=== PATIENT | female | born 1970 | race Caucasian/White ===

== ENCOUNTER 2023-02-23 11:22 | Inpatient (IN) ==
[2023-02-23] MEDS ORDERED: IOPAMIDOL 100 ML BOTTLE IV ONE (11:23)
[2023-02-23] MEDS ORDERED: 0.9 % SODIUM CHLORIDE 1,000 ML IV ONE (11:31)
[2023-02-23] MEDS ORDERED: ASPIRIN 81 MG TAB.CHEW CHEWED ONE (11:44)
[2023-02-23 11:54] LABS: POC Calcium, Ionized 1.06 (1.16-1.32); POC Creatinine 0.8 (0.6-1.2); POC Potassium 4.4 (3.3-5.1)
[2023-02-23] MEDS ORDERED: NOREPINEPHRINE BITARTRATE 8 MG in 0.9 % SODIUM CHLORIDE 242 ML IV SCH (12:30)
[2023-02-23] MEDS ORDERED: 0.9 % SODIUM CHLORIDE 250 ML IV SCH (12:30)
[2023-02-23 12:36] LABS: Basophils # (Auto) 0.07 K/mcL (0.00-0.30); Basophils % (Auto) 0.4 % (0.0-2.0); Eosinophils # (Auto) 0.09 K/mcL (0.00-0.70); Eosinophils % (Auto) 0.5 % (0.0-7.0); Hematocrit 32.3 % (34.1-44.9); Hemoglobin 10.3 g/dL (11.2-15.7); Lymphocytes # (Auto) 2.39 K/mcL (1.50-4.80); Lymphocytes % (Auto) 13.6 % (15.5-49.0); Mean Cell Volume 93.6 fL (80.0-100.0); Mean Corpuscular HGB Conc 31.9 g/dL (31.0-36.0); Monocytes # (Auto) 0.39 K/mcL (0.10-0.90); Monocytes % (Auto) 2.2 % (1.0-12.0); Neutrophils % (Auto) 82.4 % (38.0-78.0); Platelet Count 330 K/mcL (140-440); RBC 3.45 M/mcL (3.59-5.38); Red Cell Distribution Width 16.2 % (11.5-14.5); WBC 17.5 K/mcL (4.5-11.0)
--- NOTE | 2023-02-23 12:43 | XRay Report ---
CLINICAL INFORMATION: sob COMPARISON: 02/21/2023 FINDINGS: Heart size, mediastinum and pulmonary vessels are normal. Large, yet vague, reticular interstitial infiltrated throughout the right lung with moderate, yet similar, infiltrate in the left mid and lower lung have developed since the x-ray just two days prior. Underlying COPD changes acknowledged IMPRESSION: Large interstitial infiltrate throughout the right lung with moderate interstitial infiltrate left mid lower lung developing since exam two days prior. Consider viral or mycoplasma pneumonia. ARDS is possible Interpreted and Authenticated by: Bhavik Rosales 02/23/23
[2023-02-23] MEDS ORDERED: cefTRIAXone 2 GM in DEXTROSE 5% IN WATER 50 ML IV ONE (12:45)
[2023-02-23] MEDS ORDERED: AZITHROMYCIN 500 MG in DEXTROSE 5% IN WATER 250 ML IV ONE (12:45)
--- NOTE | 2023-02-23 13:00 | Emergency Department Note ---
HPI General Chief complaint: Shortness of Breath/Dyspnea Stated complaint: Shortness of Breath Time Seen by Provider: 02/23/23 11:23 Source: patient and family Mode of arrival: wheelchair Limitations: no limitations History of Present Illness HPI Narrative: Narrative: This patient with a history of asthma who smokes half pack cigarettes daily presents with complaint of shortness of breath. Patient also been experiencing some pain in the right chest. She describes shortness of breath that has been slowly progressing over the last several weeks. The pain initially began over a week ago and seem to be somewhat sporadic. Over the last few days its been persistent. Patient did have an evaluation a couple of days ago due to the discomfort. She was evaluated with chest x-ray, D-dimer and basic labs. No si gnificant abnormality was noted other than hyponatremia which the patient suffers from chronically, and the patient was reassured. Patient does have history remote history of spontaneous pneumothorax, on the left. These happened in her 30s. She has also had pneumonia severe enough to require admission previously. She has no significant cardiac history. Related Data Home Medications Medication Instructions Recorded Confirmed amitriptyline 25 mg tablet 85 mg PO QHS 06/09/15 02/23/23 estradiol 0.5 mg tablet 1 mg PO QHS 06/09/15 02/23/23 ketorolac 60 mg/2 mL intramuscular 60 mg IM WEEKLY PRN Pain 06/09/15 02/23/23 solution omeprazole 40 mg capsule,delayed 40 mg PO BID 06/09/15 02/23/23 release (Prilosec) ondansetron HCl 4 mg tablet 4 mg PO TID 06/09/15 02/23/23 (Zofran) temazepam 30 mg capsule (Restoril) 45 mg PO HS 08/23/16 02/23/23 losartan 100 mg tablet 100 mg DAILY 02/07/19 02/23/23 meclizine 12.5 mg tablet 12.5 mg PO BID PRN Vertigo 01/22/20 02/23/23 potassium chloride 20 mEq 40 meq PO QAMCC 01/22/20 02/23/23 tablet,extended release(part/cryst) spironolactone 25 mg tablet 25 mg PO DAILY 01/22/20 02/23/23 albuterol sulfate 90 mcg/actuation 2 puff inhalation Q6H PRN 01/17/21 02/23/23 aerosol inhaler Shortness Of Breath budesonide-formoterol HFA 160 2 puff inhalation TID PRN 01/17/21 02/23/23 mcg-4.5 mcg/actuation aerosol Shortness Of Breath inhaler ibuprofen 200 mg tablet 800 mg PO TID 01/17/21 02/23/23 acetaminophen 325 mg tablet 650 mg PO TID 02/23/23 02/23/23 budesonide-formoterol HFA 160 2 puff inhalation BID 02/23/23 02/23/23 mcg-4.5 mcg/actuation aerosol inhaler (Symbicort) cyclobenzaprine 10 mg tablet 10 mg PO HS 02/23/23 02/23/23 dextroamphetamine-amphetamine ER 1 cap PO QAM 02/23/23 02/23/23 20 mg 24hr capsule,extend release rimegepant 75 mg disintegrating 75 mg PO DAILY PRN Migraines 02/23/23 02/23/23 tablet (Nurtec ODT) sennosides 8.6 mg tablet (senna) 8.6 mg PO DAILY PRN Constipation 02/23/23 02/23/23 Previous Rx's Medication Instructions Recorded promethazine 25 mg tablet 25 mg PO TID PRN nausea and 02/21/23 vomiting #30 tabs Allergies Allergy/AdvReac Type Severity Reaction Status Date / Time metronidazole [From Flagyl] Allergy Severe Anaphylaxis Verified 02/23/23 16:56 naproxen Allergy Mild Hives Verified 02/23/23 18:46 Sulfa (Sulfonamide Allergy Mild Hives Verified 02/23/23 18:46 Antibiotics) modafinil [From Provigil] Allergy Unknown Unknown Verified 02/23/23 18:46 bupropion [From Wellbutrin] AdvReac Intermediate Seizure Verified 02/23/23 18:46 divalproex sodium AdvReac Mild Agitated Verified 02/23/23 18:46 [From Depakote] latex AdvReac Mild Itching Verified 02/23/23 18:46 pregabalin [From Lyrica] AdvReac Mild Hives Verified 02/23/23 18:46 Varenicline [From Chantix] AdvReac Mild Insomnia Verified 02/23/23 18:46 Review of Systems ROS ROS Narrative: Narrative: Pertinent positives and negatives as noted in HPI. All other systems reviewed and negative. [facility] Narrative Patient History Narrative: Narrative: Medical/Surgical/Family History All Active Problems (Updated 02/23/23 @ 22:25 by Portia Morales PA-C) Bronchitis, acute (Acute) COPD exacerbation (Acute) URI (upper respiratory infection) (Acute) Dehydration (Acute) Acute hyponatremia (Acute) COPD exacerbation (Acute) Acute chest wall pain (Acute) Chronic hyponatremia (Acute) Hypoxia (Acute) Leukocytosis (Acute) Pneumonitis (Acute) Chest pain, pleuritic (Acute) Elevated troponin (Acute) Hyponatremia (Acute) Mnire's disease (Chronic) Chronic insomnia (Chronic) ADHD (attention deficit hyperactivity disorder) (Chronic) Borderline personality disorder (Chronic) Fibromyalgia (Chronic) PTSD (post-traumatic stress disorder) (Chronic) Gastroparesis (Chronic) GERD (gastroesophageal reflux disease) (Chronic) Asthma (Chronic) History of TIA (transient ischemic attack) (Chronic) History of pneumothorax (Chronic) Hypertension, essential (Chronic) Hormone replacement therapy (postmenopausal) (Chronic) History of migraine headaches (Chronic) Medical History (Updated 02/23/23 @ 22:25 by Portia Morales PA-C) ADHD (attention deficit hyperactivity disorder) Asthma Bladder infection, acute Borderline personality disorder Chronic insomnia Fibromyalgia Gastroparesis GERD (gastroesophageal reflux disease) Headache History of migraine headaches History of pneumothorax History of TIA (transient ischemic attack) Hormone replacement therapy (postmenopausal) Hypertension, essential Hyponatremia Mnire's disease Pneumonia PTSD (post-traumatic stress disorder) UTI (urinary tract infection) Surgical History History of appendectomy History of bilateral salpingo-oophorectomy (BSO) History of endometriosis History of cholecystectomy History of colonoscopy History of esophagogastroduodenoscopy (EGD) History of hysterectomy Due to endometriosis History of orthopedic surgery multiple - neck, back, elbow, wrist, knee, foot, etc. Social History Smoking Status: Current every day smoker Exam Narrative Narrative: Narrative: Vital signs noted General: mild distress. Skin: Warm. Dry. No rash. Normal color. Eyes: PERRL. EOMI. Mouth: Membranes moist. Normal inspection. Neck: Good ROM. No meningeal signs. Supple. Cardiovascular: Tachycardia, regular. No murmur. Cap refill 4 seconds. Carotid pulses 2+, radial pulses 1+. Respiratory: Lung sounds clear bilaterally. Patient severely tachypneic. Gastrointestinal: Abdomen soft. No tenderness. No distention. Normal bowel sounds. No rebound tenderness or guarding. Back: Normal inspection. No CVA tenderness. No midline tenderness. Extremities: No tenderness. No swelling. No erythema. No edema. Good peripheral pulses x 4 Neurological: No focal neurological deficits observed. CN 2-12 intact. Alert. Oriented x 3 General Limitations: no limitations Course Course Course Narrative: The following orders are placed and reviewed by myself: Patient placed promptly on supplemental oxygen to improve her room air saturations from 48%. After several minutes the patient is in the 90s with pe rsistent tachypnea Differential diagnosis includes but is not limited to pulmonary embolism, fluid overload with pulmonary edema, OK, pneumonia, pneumothorax. CBC and CHEM panel reviewed. Sodium is slightly lower at 120, chloride is also low at 91. This is also chronic. POC troponin is elevated at 0.19. Lab troponin T is 0.04. EKG obtained and reviewed by myself to show sinus tachycardia at a rate of 101. QRS complexes are wide and at regular intervals. Does appear there is some mild ST elevation, half millimeter or so in lead III with flattening of T wave in aVF. With T wave inversion in V2. These are new compared to prior EKG from September 2022. proBNP is elevated at 3400. Prior in September 2022 is 176 Lactic acid elevated at 4.2 with venous pH of 7.23 Patient initially given 1 L of normal saline for hypotension with systolic pressures in the 70s and 80s. After obtaining her sodium level no fluid resuscitation is initiated due to concern for further electrolyte derangement. After the initial bolus of saline pressures do improve into the low 100s systolically and MAP stays above 65. Levophed is ordered to have on standby but is not initiated. Chest x-ray findings are concerning for fluid overload versus pneumonia. Given the patient's vital sign derangement and lab abnormalities she will be initiated on antibiotics for pneumonia sepsis. CTA chest is obtained report by radiology to be significant for findings consistent for nonspecific inflammatory pneumonitis. Radiology did not feel the findings on CT were consistent with bacterial pneumonia. Case is discussed with operating room rn at [facility] given the elevated troponin and EKG findings. Cardiology did not feel compelled that this patient fit criteria for cardiac catheterization at this time. Symptoms have been ongoing and the elevated troponin as well as slight EKG changes are thought to be secondary to alternative process such as CHF, pneumonia etc. Cardiology did advise that should the patient become clearly concerning for cardiac he is available to discuss the case further. Given the patent stents chest x-ray is well as hypotension and hypoxia sepsis is considered however given her hyponatremia further fluid resuscitation is withheld due to concern for worsening the patient's electrolyte derangement. Patient discussed with hospital service who recommends viral testing to include respiratory panels 1 and 2 as well as some [id number] testing for influenza and COVID. [id number] testing is negative. Patient excepted by hospitalist service for admission regarding hypoxia, pneumonitis versus pneumonia, hyponatremia. 45 minutes time spent interviewing patient, examining patient, ordering labs and imaging, reviewing labs and imaging, reviewing prior medical records, ordering medications and developing care plan, reevaluating patient and consulting specialist. This excludes procedures. Vital Signs Vital signs: Vital Signs Temperature 98.0 F 02/23/23 11:31 Pulse Rate 109 H 02/23/23 11:31 Respiratory Rate 28 H 02/23/23 11:31 Blood Pressure 97/61 02/23/23 11:31 Pulse Oximetry (%) 47 L 02/23/23 11:31 Oxygen Delivery Method Room Air 02/23/23 11:31 Temperature 98.1 F 02/23/23 18:01 Pulse Rate 84 02/23/23 21:28 Respiratory Rate 23 H 02/23/23 21:28 Blood Pressure 134/92 02/23/23 18:01 Pulse Oximetry (%) 96 02/23/23 21:28 Oxygen Delivery Method Heated High Flow Nasal Cannula 02/23/23 21:28 Oxygen Flow Rate (L/min) 30 02/23/23 21:28 MDM MDM Narrative Medical decision making narrative: Narrative: Lab Data 02/23/23 11:40 02/23/23 16:56 Labs: Lab Results 02/23/23 02/23/23 02/23/23 Range/Units 11:40 11:40 11:40 WBC 17.5 H (4.5-11.0) K/mcL RBC 3.45 L (3.59-5.38) M/mcL Hgb 10.3 L (11.2-15.7) g/dL Hct 32.3 L (34.1-44.9) % POC Hct (36-48) MCV 93.6 (80.0-100.0) fL MCH 29.9 (26.0-34.0) pg MCHC 31.9 (31.0-36.0) g/dL RDW 16.2 H (11.5-14.5) % Plt Count 330 (140-440) K/mcL MPV 9.0 (8.8-12.5) fL Immature Gran % (Auto) 0.9 H (0.0-0.5) % Neut % (Auto) 82.4 H (38.0-78.0) % Lymph % (Auto) 13.6 L (15.5-49.0) % [place] % (Auto) 2.2 (1.0-12.0) % Eos % (Auto) 0.5 (0.0-7.0) % Baso % (Auto) 0.4 (0.0-2.0) % Lymph # (Auto) 2.39 (1.50-4.80) K/mcL [place] # (Auto) 0.39 (0.10-0.90) K/mcL Eos # (Auto) 0.09 (0.00-0.70) K/mcL Baso # (Auto) 0.07 (0.00-0.30) K/mcL Immature Gran # 0.15 H (0.00-0.05) K/mcl Absolute Neutrophils 14.43 H (1.80-8.00) K/mcL ESR (0-30) mm/hr POC VBG pH (7.32-7.42) POC VBG pCO2 at Temp (41-51) POC VBG pO2 (25-40) POC VBG HCO3 (24-28) POC VBG Total CO2 (25-29) POC Venous O2 Sat (40-70) POC VBG Base Excess (-2-2) VBG Lactic Acid (0.5-2) POC Sodium (133-145) Sodium 118 L* (133-145) mmol/L POC Potassium (3.3-5.1) Potassium 4.6 (3.3-5.1) mmol/L POC Chloride (96-108) Chloride 87 L (96-108) mmol/L Carbon Dioxide 14 L (22-30) mmol/L POC Total CO2 (22-30) Anion Gap 17.0 H (8.0-16.0) POC BUN (6-20) BUN 13 (6-20) mg/dL Creatinine 0.9 (0.6-1.1) mg/dL POC Creatinine (0.6-1.2) GFR Calculation 73 Glucose 219 H (70-105) mg/dL POC Glucose (70-105) Calcium 8.1 L (8.6-10.4) mg/dL POC WB Ioniz Calcium (1.16-1.32) Total Bilirubin 0.2 (0.1-1.0) mg/dL AST 33 H (<32) U/L ALT 12 (<40) U/L Alkaline Phosphatase 66 (39-117) U/L Troponin T 0.04 H* (<0.03) ng/mL C-React Prot High Sens (1.0-3.0) mg/L NT-Pro-B Natriuret Pep 3458.0 H (<125.0) pg/mL Total Protein 6.4 (5.9-8.4) gm/dL Albumin 3.5 (3.2-5.2) gm/dL Globulin 2.9 (2.2-3.7) gm/dL Albumin/Globulin Ratio 1.2 (1.0-2.3) Procalcitonin (<0.10) ng/mL POC Troponin I (0.00-0.08) 02/23/23 02/23/23 02/23/23 Range/Units 11:40 11:40 11:40 WBC (4.5-11.0) K/mcL RBC (3.59-5.38) M/mcL Hgb (11.2-15.7) g/dL Hct (34.1-44.9) % POC Hct (36-48) MCV (80.0-100.0) fL MCH (26.0-34.0) pg MCHC (31.0-36.0) g/dL RDW (11.5-14.5) % Plt Count (140-440) K/mcL MPV (8.8-12.5) fL Immature Gran % (Auto) (0.0-0.5) % Neut % (Auto) (38.0-78.0) % Lymph % (Auto) (15.5-49.0) % [place] % (Auto) (1.0-12.0) % Eos % (Auto) (0.0-7.0) % Baso % (Auto) (0.0-2.0) % Lymph # (Auto) (1.50-4.80) K/mcL [place] # (Auto) (0.10-0.90) K/mcL Eos # (Auto) (0.00-0.70) K/mcL Baso # (Auto) (0.00-0.30) K/mcL Immature Gran # (0.00-0.05) K/mcl Absolute Neutrophils (1.80-8.00) K/mcL ESR 50 H (0-30) mm/hr POC VBG pH (7.32-7.42) POC VBG pCO2 at Temp (41-51) POC VBG pO2 (25-40) POC VBG HCO3 (24-28) POC VBG Total CO2 (25-29) POC Venous O2 Sat (40-70) POC VBG Base Excess (-2-2) VBG Lactic Acid (0.5-2) POC Sodium (133-145) Sodium (133-145) mmol/L POC Potassium (3.3-5.1) Potassium (3.3-5.1) mmol/L POC Chloride (96-108) Chloride (96-108) mmol/L Carbon Dioxide (22-30) mmol/L POC Total CO2 (22-30) Anion Gap (8.0-16.0) POC BUN (6-20) BUN (6-20) mg/dL Creatinine (0.6-1.1) mg/dL POC Creatinine (0.6-1.2) GFR Calculation Glucose (70-105) mg/dL POC Glucose (70-105) Calcium (8.6-10.4) mg/dL POC WB Ioniz Calcium (1.16-1.32) Total Bilirubin (0.1-1.0) mg/dL AST (<32) U/L ALT (<40) U/L Alkaline Phosphatase (39-117) U/L Troponin T (<0.03) ng/mL C-React Prot High Sens 220.6 H (1.0-3.0) mg/L NT-Pro-B Natriuret Pep (<125.0) pg/mL Total Protein (5.9-8.4) gm/dL Albumin (3.2-5.2) gm/dL Globulin (2.2-3.7) gm/dL Albumin/Globulin Ratio (1.0-2.3) Procalcitonin 6.60 H (<0.10) ng/mL POC Troponin I (0.00-0.08) 02/23/23 02/23/23 02/23/23 Range/Units 11:46 11:49 11:51 WBC (4.5-11.0) K/mcL RBC (3.59-5.38) M/mcL Hgb (11.2-15.7) g/dL Hct (34.1-44.9) % POC Hct 34.0 L (36-48) MCV (80.0-100.0) fL MCH (26.0-34.0) pg MCHC (31.0-36.0) g/dL RDW (11.5-14.5) % Plt Count (140-440) K/mcL MPV (8.8-12.5) fL Immature Gran % (Auto) (0.0-0.5) % Neut % (Auto) (38.0-78.0) % Lymph % (Auto) (15.5-49.0) % [place] % (Auto) (1.0-12.0) % Eos % (Auto) (0.0-7.0) % Baso % (Auto) (0.0-2.0) % Lymph # (Auto) (1.50-4.80) K/mcL [place] # (Auto) (0.10-0.90) K/mcL Eos # (Auto) (0.00-0.70) K/mcL Baso # (Auto) (0.00-0.30) K/mcL Immature Gran # (0.00-0.05) K/mcl Absolute Neutrophils (1.80-8.00) K/mcL ESR (0-30) mm/hr POC VBG pH 7.23 L (7.32-7.42) POC VBG pCO2 at Temp 39.8 L (41-51) POC VBG pO2 24 L (25-40) POC VBG HCO3 16.8 L (24-28) POC VBG Total CO2 18.0 L (25-29) POC Venous O2 Sat 33.0 L (40-70) POC VBG Base Excess -11.0 L (-2-2) VBG Lactic Acid 4.2 H* (0.5-2) POC Sodium 120 L (133-145) Sodium (133-145) mmol/L POC Potassium 4.4 (3.3-5.1) Potassium (3.3-5.1) mmol/L POC Chloride 91 L (96-108) Chloride (96-108) mmol/L Carbon Dioxide (22-30) mmol/L POC Total CO2 17.0 L (22-30) Anion Gap (8.0-16.0) POC BUN 13 (6-20) BUN (6-20) mg/dL Creatinine (0.6-1.1) mg/dL POC Creatinine 0.8 (0.6-1.2) GFR Calculation Glucose (70-105) mg/dL POC Glucose 221 H (70-105) Calcium (8.6-10.4) mg/dL POC WB Ioniz Calcium 1.06 L (1.16-1.32) Total Bilirubin (0.1-1.0) mg/dL AST (<32) U/L ALT (<40) U/L Alkaline Phosphatase (39-117) U/L Troponin T (<0.03) ng/mL C-React Prot High Sens (1.0-3.0) mg/L NT-Pro-B Natriuret Pep (<125.0) pg/mL Total Protein (5.9-8.4) gm/dL Albumin (3.2-5.2) gm/dL Globulin (2.2-3.7) gm/dL Albumin/Globulin Ratio (1.0-2.3) Procalcitonin (<0.10) ng/mL POC Troponin I 0.19 H (0.00-0.08) 02/23/23 02/23/23 Range/Units 15:12 15:12 WBC (4.5-11.0) K/mcL RBC (3.59-5.38) M/mcL Hgb (11.2-15.7) g/dL Hct (34.1-44.9) % POC Hct (36-48) MCV (80.0-100.0) fL MCH (26.0-34.0) pg MCHC (31.0-36.0) g/dL RDW (11.5-14.5) % Plt Count (140-440) K/mcL MPV (8.8-12.5) fL Immature Gran % (Auto) (0.0-0.5) % Neut % (Auto) (38.0-78.0) % Lymph % (Auto) (15.5-49.0) % [place] % (Auto) (1.0-12.0) % Eos % (Auto) (0.0-7.0) % Baso % (Auto) (0.0-2.0) % Lymph # (Auto) (1.50-4.80) K/mcL [place] # (Auto) (0.10-0.90) K/mcL Eos # (Auto) (0.00-0.70) K/mcL Baso # (Auto) (0.00-0.30) K/mcL Immature Gran # (0.00-0.05) K/mcl Absolute Neutrophils (1.80-8.00) K/mcL ESR (0-30) mm/hr POC VBG pH (7.32-7.42) POC VBG pCO2 at Temp (41-51) POC VBG pO2 (25-40) POC VBG HCO3 (24-28) POC VBG Total CO2 (25-29) POC Venous O2 Sat (40-70) POC VBG Base Excess (-2-2) VBG Lactic Acid 1.8 (0.5-2) POC Sodium (133-145) Sodium (133-145) mmol/L POC Potassium (3.3-5.1) Potassium (3.3-5.1) mmol/L POC Chloride (96-108) Chloride (96-108) mmol/L Carbon Dioxide (22-30) mmol/L POC Total CO2 (22-30) Anion Gap (8.0-16.0) POC BUN (6-20) BUN (6-20) mg/dL Creatinine (0.6-1.1) mg/dL POC Creatinine (0.6-1.2) GFR Calculation Glucose (70-105) mg/dL POC Glucose (70-105) Calcium (8.6-10.4) mg/dL POC WB Ioniz Calcium (1.16-1.32) Total Bilirubin (0.1-1.0) mg/dL AST (<32) U/L ALT (<40) U/L Alkaline Phosphatase (39-117) U/L Troponin T 0.06 H* (<0.03) ng/mL C-React Prot High Sens (1.0-3.0) mg/L NT-Pro-B Natriuret Pep (<125.0) pg/mL Total Protein (5.9-8.4) gm/dL Albumin (3.2-5.2) gm/dL Globulin (2.2-3.7) gm/dL Albumin/Globulin Ratio (1.0-2.3) Procalcitonin (<0.10) ng/mL POC Troponin I (0.00-0.08) Discharge Plan Patient/Caregiver Discharge Instructions Pt seen by PENSIONHOLDER INFORMATION CLERK/PA only: Yes Clinical Impression: Hypoxia, Leukocytosis, Pneumonitis, Chest pain, pleuritic, Elevated troponin, Hyponatremia Patient Disposition: Xfer As Inpt ([facility]) Discharge Date/Time: 02/23/23 16:34
[2023-02-23] MEDS ORDERED: KETOROLAC 30 MG/ML VIAL IV ONE (13:11)
[2023-02-23 13:25] LABS: ALT/SGPT 12 U/L (<40); AST/SGOT 33 U/L (<32); Albumin 3.5 gm/dL (3.2-5.2); Albumin/Globulin Ratio 1.2 (1.0-2.3); Alkaline Phosphatase 66 U/L (39-117); Bilirubin,Total 0.2 mg/dL (0.1-1.0); Blood Urea Nitrogen 13 mg/dL (6-20); Calcium 8.1 mg/dL (8.6-10.4); Carbon Dioxide 14 mmol/L (22-30); Chloride 87 mmol/L (96-108); Globulin 2.9 gm/dL (2.2-3.7); Glomerular Filtration Rate 73; Glucose 219 mg/dL (70-105)
[2023-02-23] MEDS ORDERED: methylPREDNISolone SOD SUCC 125 MG/2 ML VIAL IV ONE (13:26)
--- NOTE | 2023-02-23 13:26 | Cat Scan Report ---
CLINICAL INFORMATION: Hypoxia COMPARISON: Chest CT 09/25/2022 TECHNIQUE: 80ml of Isovue-370 were injected intravenously. Using SmartPrep to maximize pulmonary artery opacification, .625mm helical slices were obtained from the lung apices through the lung bases. Following reconstruction, 2.5 mm sagittal, coronal, and axial reformations were processed. The exam was reviewed at mediastinal, lung, and bone windows. The exam was performed using radiation dose optimization techniques including, but not limited to, automated exposure control, adjustment of the mA and/or kV according to patient size and use of iterative reconstruction technique. FINDINGS: Pulmonary parenchymal windows show interval development of large groundglass infiltrates throughout both lungs. Moderate underlying centrilobular emphysema acknowledged: The infiltrates spare areas of large bullae formation in the upper lobes. In addition, there are innumerable small cysts within the infiltrates which were likely pre-existing and related emphysema. There is also relative subpleural sparing. A new 6 mm nodule has developed in the medial segment right middle lobe on image 74, there is also a 3 mm nodule lateral segment of the right lower lobe on image 65. There are no effusions. Mediastinal windows show the heart is grossly normal in size and configuration. The pulmonary arteries are well opacified-no evidence of pulmonary embolus. Main pulmonary artery is at upper limits of normal in diameter: 2.9 cm. Thoracic cord is normal diameter with diffuse intimal thickening. A few mildly enlarged lymph nodes seen in the lower mediastinum in the pericarinal and both hilar regions have increased slightly in size and number from the previous exam. These likely represent reactive adenopathy. The esophagus is grossly normal. Thyroid unremarkable. Bones and soft tissues of the chest wall show no abnormality. 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 The patient is at risk for median arcuate ligament syndrome. IMPRESSION: 1. Large groundglass infiltrates diffusely throughout both lungs with subpleural sparing and also sparing in the region of upper lobe bullae (moderate pre-existing underlying centrilobular emphysema noted). There are also innumerable tiny cysts within the opacified lung which were likely pre-existing. 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 This is a noninfectious inflammatory condition typically associated with autoimmune diseases and is treated with glucocorticosteroids. Other diagnostic considerations are also predominantly noninfectious inflammatory including that desquamative interstitial pneumonia and hypersensitivity pneumonitis. ARDS and viral pneumonia remain in the differential diagnosis 2. Moderate centrilobular emphysema. 3. Small right middle and lower lobe nodules-new from prior exam there likely inflammatory. 4. 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 The patient is at risk for median arcuate ligament syndrome. Interpreted and Authenticated by: Bhavik Rosales 02/23/23
[2023-02-23] MEDS ORDERED: IPRATROPIUM/ALBUTEROL 3 ML AMPUL.NEB NEB ONE (14:29)
--- NOTE | 2023-02-23 14:46 | Internal Med History&Physical ---
HPI History of Present Illness Patient information: Note initiated : 02/23/23 at 2:34 pm Service Date, if different from initiated Date: [] Patient: Grace Unger 52 y/o F admitted on for Shortness of Breath. Chief Complaint: [] History of present illness: History of Present Illness Patient is a 52 years old female with history of COPD/asthma, current smoker, tobacco use disorder, hypertension, chronic hyponatremia, GERD, fibromyalgia, migraine headaches presented with shortness of breath and right sided thoracic wall pain for the past 2 days. Patient has remote history of spontaneous pneumothorax x3 which occurred on the left side. Patient does have a family history of spontaneous pneumothorax in close relatives. Patient also reported that she has history of pleurisy and it does feel similar. Pain gets worse with movement. Patient reported that she has been feeling more short of breath over the past 2-month and has increased use of her short acting inhaler. She is on monoclonal antibody galcenanezumab for her migraine headache. At home she takes albuterol, budesonide-formoterol for COPD. Home medications also include spironolactone. Her shortness of breath has been progressively getting worse, chest pain started about a week ago and initially it was somewhat sporadic and then over the past few days it has become persistent. Patient was evaluated in ER on 02/21. At that time chest x-ray, D-dimer and labs were unremarkable. She was sent home with pain medication. Patient reports no significant cardiac history. Patient reports smoking no illicit substances or using any illicit substances otherwise. On presentation patient was in respiratory distress with tachypnea of 27, tachycardia pulse rate 101, she was placed on oxygen mask 5 L with sats 90%. CBC showed WBC of 17.5 thousand, she appears to have some chronic leukocytosis. Hemoglobin 10.3 which is close to her baseline. VBG with PCO2 39, PO2 24, HCO3 16, lactic acid elevated at 4.2. Hyponatremia with sodium of 118, potassium 4.6, creatinine 0.9, glucose 219. Troponin 0.04, elevated proBNP of 3458 high elevated from 176 in October 04. EKG showed sinus tachycardia, heart rate 101 bpm, no acute ST-T wave changes. CTA chest showed diffuse groundglass infiltrates involving both lungs, moderate underlying centrilobular emphysematous changes. There are innumerable small cyst within the infiltrate which could be secondary to emphysema. A new 6 mm nodule developed in the medial segment right middle lobe. There is no effusion. Heart appears normal. Rapid Patricia test negative for influenza and COVID. ROS Pertinent positives and negatives as noted in HPI. All other systems reviewed and negative. Reports shortness of breath some cough, malaise, pleuritic chest pain Denies palpitations, sweating Denies nausea vomiting or diarrhea Denies rash Physical examination General: alert, mild distress due to respiratory distress but nontoxic Skin: Warm. Dry. No rash. Normal color. Eyes: PERRL. EOMI. Mouth: Membranes moist. Normal inspection. Neck: Good ROM. No meningeal signs. Supple. Cardiovascular: Tachycardia, regular. No murmur. Cap refill 4 seconds. Carotid pulses 2+, radial pulses 1+. Respiratory: Bilateral wheeze and bronchospasm, on 5 L nasal cannula oxygen Gastrointestinal: Abdomen soft. No tenderness. No distention. Normal bowel sounds. No rebound tenderness or guarding. Back: Normal inspection. No CVA tenderness. No midline tenderness. Extremities: No tenderness. No swelling. No erythema. No edema. Good peripheral pulses x 4 Neurological: No focal neurological deficits observed. CN 2-12 intact. Alert. Oriented x 3 Assessment and plan Sepsis Patient presented with tachypnea of 27, tachycardia pulse rate 101, leukocytosis and suspected source Atypical pneumonia CT scan with diffuse groundglass infiltrate involving both lungs. Differentials are broad including atypical mycoplasma pneumonia, viral infection, noninfectious inflammatory condition, autoimmune pneumonitis Will cover with ceftriaxone and azithromycin. Sputum culture. COPD exacerbation Patient with bilateral wheezing, continues to smoke. Will manage with IV Solu- Medrol, DuoNebs, budesonide, pulmonary toileting Tobacco use disorder Over [id number] history of smoking and continues to smoke up to half a pack a day. Tobacco cessation advised. Nicotine patch offered however patient refused Acute hypoxic respiratory failure with diffuse bilateral groundglass opacities Secondary to above. Pulmonary nodules 6 mm right middle and 3mm right lower lobe nodules new from before. Patient will need pulmonary follow-up as an outpatient Hyponatremia, acute on chronic Patient admits to drinking at least 80 ounces of plain water every day. Co unseled on avoiding over drinking of free water. Patient received 1 L NS. Will monitor Mild troponin elevation, will likely demand mediated Likely secondary to stress and demand. Will trend troponin Monitor on telemetry Echocardiogram Chronic anemia Hemoglobin over 10 close to baseline. Will monitor Hypertension Currently hypotensive. Hold all antihypertensives including losartan 100 mg daily. Will give IV fluid as patient is dehydrated. Migraine headaches Continue home medications GERD Continue PPI ADHD/PTSD/borderline personality disorder Continue Adderall home dose Postmenopausal Continue hormone replacement therapy DVT prophylaxis and GI prophylaxis in place CODE STATUS Full code Critical care 55 minutes PFSH PFS All Active Problems Bronchitis, acute (Acute) COPD exacerbation (Acute) URI (upper respiratory infection) (Acute) Dehydration (Acute) Acute hyponatremia (Acute) COPD exacerbation (Acute) Acute chest wall pain (Acute) Chronic hyponatremia (Acute) Mnire's disease (Chronic) Chronic insomnia (Chronic) ADHD (attention deficit hyperactivity disorder) (Chronic) Borderline personality disorder (Chronic) Fibromyalgia (Chronic) PTSD (post-traumatic stress disorder) (Chronic) Gastroparesis (Chronic) GERD (gastroesophageal reflux disease) (Chronic) Asthma (Chronic) History of TIA (transient ischemic attack) (Chronic) History of pneumothorax (Chronic) Hypertension, essential (Chronic) Hormone replacement therapy (postmenopausal) (Chronic) History of migraine headaches (Chronic) Medical History ADHD (attention deficit hyperactivity disorder) Asthma Bladder infection, acute Borderline personality disorder Chronic insomnia Fibromyalgia Gastroparesis GERD (gastroesophageal reflux disease) Headache History of migraine headaches History of pneumothorax History of TIA (transient ischemic attack) Hormone replacement therapy (postmenopausal) Hypertension, essential Hyponatremia Mnire's disease Pneumonia PTSD (post-traumatic stress disorder) UTI (urinary tract infection) Surgical History History of appendectomy History of bilateral salpingo-oophorectomy (BSO) History of endometriosis History of cholecystectomy History of colonoscopy History of esophagogastroduodenoscopy (EGD) History of hysterectomy Due to endometriosis History of orthopedic surgery multiple - neck, back, elbow, wrist, knee, foot, etc. Social History smoking status: Current every day smoker MEDS/ALLERGIES Home Medications and Allergies Home Medications Medication Instructions Recorded Confirmed Type amitriptyline 25 mg tablet 85 mg PO QHS 06/09/15 02/23/23 History estradiol 0.5 mg tablet 1 mg PO QHS 06/09/15 02/23/23 History ketorolac 60 mg/2 mL intramuscular 60 mg IM WEEKLY PRN Pain 06/09/15 02/23/23 History solution omeprazole 40 mg capsule,delayed 40 mg PO BID 06/09/15 02/23/23 History release (Prilosec) ondansetron HCl 4 mg tablet 4 mg PO TID 06/09/15 02/23/23 History (Zofran) temazepam 30 mg capsule (Restoril) 45 mg PO HS 08/23/16 02/23/23 History losartan 100 mg tablet 100 mg DAILY 02/07/19 02/23/23 History meclizine 12.5 mg tablet 12.5 mg PO BID PRN Vertigo 01/22/20 02/23/23 History potassium chloride 20 mEq 40 meq PO QAMCC 01/22/20 02/23/23 History tablet,extended release(part/cryst) spironolactone 25 mg tablet 25 mg PO DAILY 01/22/20 02/23/23 History albuterol sulfate 90 mcg/actuation 2 puff inhalation Q6H PRN 01/17/21 02/23/23 History aerosol inhaler Shortness Of Breath budesonide-formoterol HFA 160 2 puff inhalation TID PRN 01/17/21 02/23/23 History mcg-4.5 mcg/actuation aerosol Shortness Of Breath inhaler ibuprofen 200 mg tablet 800 mg PO TID 01/17/21 02/23/23 History promethazine 25 mg tablet 25 mg PO TID PRN nausea and 02/21/23 02/23/23 Rx vomiting #30 tabs acetaminophen 325 mg tablet 650 mg PO TID 02/23/23 02/23/23 History budesonide-formoterol HFA 160 2 puff inhalation BID 02/23/23 02/23/23 History mcg-4.5 mcg/actuation aerosol inhaler (Symbicort) cyclobenzaprine 10 mg tablet 10 mg PO HS 02/23/23 02/23/23 History dextroamphetamine-amphetamine ER 1 cap PO QAM 02/23/23 02/23/23 History 20 mg 24hr capsule,extend release rimegepant 75 mg disintegrating 75 mg PO DAILY PRN Migraines 02/23/23 02/23/23 History tablet (Nurtec ODT) sennosides 8.6 mg tablet (senna) 8.6 mg PO DAILY PRN Constipation 02/23/23 02/23/23 History Allergies Allergy/AdvReac Type Severity Reaction Status Date / Time metronidazole [From Flagyl] Allergy Severe Anaphylaxis Verified 02/23/23 16:56 bupropion [From Wellbutrin] Allergy Seizure Verified 02/23/23 16:56 latex Allergy Itching Verified 02/23/23 16:56 modafinil [From Provigil] Allergy Verified 02/23/23 16:56 naproxen Allergy Hives Verified 02/23/23 16:56 Sulfa (Sulfonamide Allergy Hives Verified 02/23/23 16:56 Antibiotics) pregabalin [From Lyrica] AdvReac Intermediate Hives Verified 02/23/23 16:56 divalproex sodium AdvReac Agitated Verified 02/23/23 16:56 [From Depakote] Varenicline [From Chantix] AdvReac Insomnia Verified 02/23/23 16:56 EXAM Constitutional Vitals: Temp Pulse Resp BP Pulse Ox O2 Del Method O2 Flow Rate 98.0 F 89 34 H 97/73 95 Oxymask 5 02/23/23 11:31 02/23/23 14:11 02/23/23 14:11 02/23/23 14:11 02/23/23 14:11 02/23/23 14:11 02/23/23 14:11 DATA Data Completed and Pending Labs: Labs from last 24 hours 02/23/23 02/23/23 02/23/23 11:51 11:49 11:46 WBC RBC Hgb Hct POC Hct 34.0 L MCV MCH MCHC RDW Plt Count MPV Immature Gran % (Auto) Neut % (Auto) Lymph % (Auto) Griggs % (Auto) Eos % (Auto) Baso % (Auto) Lymph # (Auto) Griggs # (Auto) Eos # (Auto) Baso # (Auto) Immature Gran # Absolute Neutrophils POC VBG pH 7.23 L POC VBG pCO2 at Temp 39.8 L POC VBG pO2 24 L POC VBG HCO3 16.8 L POC VBG Total CO2 18.0 L POC Venous O2 Sat 33.0 L POC VBG Base Excess -11.0 L VBG Lactic Acid 4.2 H* POC Sodium 120 L Sodium POC Potassium 4.4 Potassium POC Chloride 91 L Chloride Carbon Dioxide POC Total CO2 17.0 L Anion Gap POC BUN 13 BUN Creatinine POC Creatinine 0.8 GFR Calculation Glucose POC Glucose 221 H Calcium POC WB Ioniz Calcium 1.06 L Total Bilirubin AST ALT Alkaline Phosphatase Troponin T NT-Pro-B Natriuret Pep Total Protein Albumin Globulin Albumin/Globulin Ratio POC Troponin I 0.19 H 02/23/23 02/23/23 02/23/23 11:40 11:40 11:40 WBC 17.5 H RBC 3.45 L Hgb 10.3 L Hct 32.3 L POC Hct MCV 93.6 MCH 29.9 MCHC 31.9 RDW 16.2 H Plt Count 330 MPV 9.0 Immature Gran % (Auto) 0.9 H Neut % (Auto) 82.4 H Lymph % (Auto) 13.6 L Griggs % (Auto) 2.2 Eos % (Auto) 0.5 Baso % (Auto) 0.4 Lymph # (Auto) 2.39 Griggs # (Auto) 0.39 Eos # (Auto) 0.09 Baso # (Auto) 0.07 Immature Gran # 0.15 H Absolute Neutrophils 14.43 H POC VBG pH POC VBG pCO2 at Temp POC VBG pO2 POC VBG HCO3 POC VBG Total CO2 POC Venous O2 Sat POC VBG Base Excess VBG Lactic Acid POC Sodium Sodium 118 L* POC Potassium Potassium 4.6 POC Chloride Chloride 87 L Carbon Dioxide 14 L POC Total CO2 Anion Gap 17.0 H POC BUN BUN 13 Creatinine 0.9 POC Creatinine GFR Calculation 73 Glucose 219 H POC Glucose Calcium 8.1 L POC WB Ioniz Calcium Total Bilirubin 0.2 AST 33 H ALT 12 Alkaline Phosphatase 66 Troponin T 0.04 H* NT-Pro-B Natriuret Pep 3458.0 H Total Protein 6.4 Albumin 3.5 Globulin 2.9 Albumin/Globulin Ratio 1.2 POC Troponin I A/P Time Spent With Patient Time: Total time spent is greater than 50% in coordination of care (as documented) at patient's floor/unit and/or counseling patient:
[2023-02-23] MEDS ORDERED: LIDOCAINE PATCH TOPICAL ONE (15:03)
[2023-02-23] MEDS ORDERED: HYDROmorphone 0.5 MG/0.5 ML SYRINGE IV PRN (15:57)
[2023-02-23] MEDS ORDERED: LACTATED RINGERS 1,000 ML IV SCH (16:00)
[2023-02-23] MEDS ORDERED: SENNOSIDES 1 TABLET PO PRN (16:39)
[2023-02-23] MEDS ORDERED: LACTULOSE 20 GM/30 ML ORAL.SOL PO PRN (16:39)
[2023-02-23] MEDS: methylPREDNISolone SOD SUCC 40 MG/ML VIAL IV SCH ×2 (17:14→22:35)
[2023-02-23 17:51] LABS: ALT/SGPT 15 U/L (<40); AST/SGOT 35 U/L (<32); Albumin 3.6 gm/dL (3.2-5.2); Albumin/Globulin Ratio 1.2 (1.0-2.3); Alkaline Phosphatase 63 U/L (39-117); Bilirubin,Total < 0.2 mg/dL (0.1-1.0); Blood Urea Nitrogen 10 mg/dL (6-20); Carbon Dioxide 12 mmol/L (22-30); Chloride 88 mmol/L (96-108); Globulin 3.1 gm/dL (2.2-3.7); Glomerular Filtration Rate 103; Glucose 138 mg/dL (70-105)
[2023-02-23] MEDS ORDERED: MAGNESIUM SULFATE 24.36 MEQ in DEXTROSE 5% IN WATER 50 ML IV ONE (17:52)
[2023-02-23] MEDS ORDERED: SODIUM CHLORIDE 3 % 100 ML IV ONE (17:55)
[2023-02-23 17:57] LABS: CRP,High Sensitivity 194.9 mg/L (1.0-3.0)
[2023-02-23] MEDS: IPRATROPIUM/ALBUTEROL 3 ML AMPUL.NEB NEB SCH (18:02)
[2023-02-23] MEDS: BUDESONIDE 0.5 MG/2 ML AMPUL.NEB NEB SCH ×2 (18:02→21:30)
[2023-02-23] MEDS ORDERED: ONDANSETRON 4 MG ODT TABLET SL PRN (18:49)
[2023-02-23] MEDS ORDERED: MAGNESIUM SULFATE 8.12 MEQ/2 ML VIAL ONE (19:24)
[2023-02-23] MEDS: 0.9 % SODIUM CHLORIDE 10 ML SYRINGE IV SCH ×2 (19:40→22:35)
[2023-02-23 19:43] LABS: Appearance,Urine CLEAR (Clear); Bilirubin,Urine Negative (Negative); Color,Urine YELLOW; Culture Indicated,Urine No; Glucose,Urine (UA) Negative (Negative); Ketones,Urine 20 mg/dL (Negative); Leukocyte Esterase,Urine Negative /uL (Negative); Mucus,Urine FEW /hpf; Nitrate,Urine Negative (Negative); Protein,Urine Negative (Negative); Specific Gravity,Urine 1.059 (1.000-1.035); Urine Blood Negative (Negative); Urine RBC 4 /hpf (0-3); Urine Squamous Epithelial Cell 1 /hpf (0-4); Urine WBC 1 /hpf (0-4); Urobilinogen,Urine Negative
[2023-02-23] MEDS: ACETAMINOPHEN 325 MG TABLET PO PRN (19:47)
[2023-02-23] MEDS: AMITRIPTYLINE 25 MG TABLET PO SCH (21:25)
[2023-02-23] MEDS: AMITRIPTYLINE 10 MG TABLET PO SCH (21:26)
[2023-02-23] MEDS: TEMAZEPAM 15 MG CAPSULE PO SCH (21:26)
[2023-02-23] MEDS: CYCLOBENZAPRINE 10 MG TABLET PO SCH (21:27)
[2023-02-23] MEDS: DOCUSATE SODIUM 100 MG CAPSULE PO SCH (21:27)
[2023-02-23] MEDS: 0.9 % SODIUM CHLORIDE 1,000 ML IV SCH (22:30)
[2023-02-23] MEDS ORDERED: ALBUTEROL SULFATE 2.5 MG/3 ML NEBULIZER ONE (22:38)
[2023-02-23] MEDS: ONDANSETRON 4 MG/2 ML VIAL IV PRN (23:10)
[2023-02-24] MEDS: IPRATROPIUM/ALBUTEROL 3 ML AMPUL.NEB NEB SCH ×2 (01:00→06:37)
[2023-02-24] MEDS: 0.9 % SODIUM CHLORIDE 10 ML SYRINGE IV SCH ×3 (05:38→23:00)
[2023-02-24] MEDS: methylPREDNISolone SOD SUCC 40 MG/ML VIAL IV SCH ×3 (05:45→23:50)
[2023-02-24 06:28] LABS: Basophils # (Auto) 0.02 K/mcL (0.00-0.30); Basophils % (Auto) 0.1 % (0.0-2.0); Eosinophils # (Auto) 0.01 K/mcL (0.00-0.70); Eosinophils % (Auto) 0.1 % (0.0-7.0); Hematocrit 29.2 % (34.1-44.9); Lymphocytes # (Auto) 0.68 K/mcL (1.50-4.80); Lymphocytes % (Auto) 4.7 % (15.5-49.0); Mean Cell Volume 88.2 fL (80.0-100.0); Mean Corpuscular HGB Conc 34.2 g/dL (31.0-36.0); Mean Platelet Volume 9.1 fL (8.8-12.5); Monocytes # (Auto) 0.25 K/mcL (0.10-0.90); Monocytes % (Auto) 1.7 % (1.0-12.0); Neutrophils % (Auto) 92.4 % (38.0-78.0); Platelet Count 305 K/mcL (140-440); RBC 3.31 M/mcL (3.59-5.38); Red Cell Distribution Width 15.9 % (11.5-14.5); WBC 14.5 K/mcL (4.5-11.0)
[2023-02-24] MEDS: BUDESONIDE 0.5 MG/2 ML AMPUL.NEB NEB SCH ×2 (06:37→19:02)
[2023-02-24 07:27] LABS: ALT/SGPT 13 U/L (<40); AST/SGOT 30 U/L (<32); Albumin 3.7 gm/dL (3.2-5.2); Albumin/Globulin Ratio 1.2 (1.0-2.3); Alkaline Phosphatase 67 U/L (39-117); Bilirubin,Total < 0.2 mg/dL (0.1-1.0); Blood Urea Nitrogen 6 mg/dL (6-20); Calcium 8.4 mg/dL (8.6-10.4); Carbon Dioxide 18 mmol/L (22-30); Chloride 95 mmol/L (96-108); Globulin 3.1 gm/dL (2.2-3.7); Glomerular Filtration Rate 110; Glucose 161 mg/dL (70-105)
[2023-02-24] MEDS: OMEPRAZOLE 20 MG CAPSULE PO SCH ×2 (07:52→18:06)
[2023-02-24] MEDS: DEXTROAMPHETAMINE AMPHETAMINE 20 MG PO SCH (09:18)
[2023-02-24] MEDS: RIMEGEPANT 75 MG PO SCH (09:18)
[2023-02-24] MEDS: AZITHROMYCIN 500 MG in DEXTROSE 5% IN WATER 250 ML IV SCH (09:29)
[2023-02-24] MEDS: LIDOCAINE PATCH TOPICAL SCH (09:29)
[2023-02-24] MEDS: cefTRIAXone 1 GM VIAL IV SCH (09:29)
[2023-02-24] MEDS: DOCUSATE SODIUM 100 MG CAPSULE PO SCH ×2 (09:30→20:24)
[2023-02-24] MEDS: oxyCODONE/APAP 5/325MG TABLET PO PRN ×2 (09:30→18:19)
[2023-02-24] MEDS: ENOXAPARIN 40 MG/0.4 ML SYRINGE SQ SCH (09:30)
[2023-02-24] MEDS: ESTRADIOL 1 MG TABLET PO SCH (09:30)
[2023-02-24] MEDS: BENZONATATE 100 MG CAPSULE PO SCH ×3 (09:30→20:24)
[2023-02-24] MEDS: PROMETHAZINE 25 MG/ML VIAL IV PRN ×2 (09:30→18:19)
[2023-02-24] MEDS: ALBUTEROL SULFATE 2.5 MG/3 ML NEBULIZER NEB SCH ×2 (12:26→19:02)
[2023-02-24] MEDS: guaiFENesin/CODEINE 10 ML UDC PO PRN ×2 (13:18→18:59)
[2023-02-24] MEDS ORDERED: cefTRIAXone 1 GM in DEXTROSE 5% IN WATER 50 ML IV SCH (15:45)
[2023-02-24] MEDS: 0.9 % SODIUM CHLORIDE 1,000 ML IV SCH (17:10)
[2023-02-24 17:38] LABS: ALT/SGPT 15 U/L (<40); AST/SGOT 33 U/L (<32); Albumin 3.8 gm/dL (3.2-5.2); Albumin/Globulin Ratio 1.3 (1.0-2.3); Alkaline Phosphatase 74 U/L (39-117); Bilirubin,Total < 0.2 mg/dL (0.1-1.0); Blood Urea Nitrogen 6 mg/dL (6-20); Calcium 8.5 mg/dL (8.6-10.4); Carbon Dioxide 21 mmol/L (22-30); Chloride 95 mmol/L (96-108); Glomerular Filtration Rate 110; Glucose 146 mg/dL (70-105)
--- NOTE | 2023-02-24 19:37 | Internal Med Progress Note ---
SUBJECTIVE Subjective Patient information: Note initiated : 02/24/23 at 7:27 pm Service Date, if different from initiated Date: [] Patient: Grace Unger 52 y/o F admitted on 02/23/23 for Shortness of Breath. Chief Complaint: [] Additional PMFSH (Level 3 Only): History of Present Illness Patient is a 52 years old female with history of COPD/asthma, current smoker, tobacco use disorder, hypertension, chronic hyponatremia, GERD, fibromyalgia, migraine headaches presented with shortness of breath and right sided thoracic wall pain for the past 2 days. Patient has remote history of spontaneous pneumothorax x3 which occurred on the left side. Patient does have a family history of spontaneous pneumothorax in close relatives. Patient also reported that she has history of pleurisy and it does feel similar. Pain gets worse with movement. Patient reported that she has been feeling more short of breath over the past 2-month and has increased use of her short acting inhaler. She is on monoclonal antibody galcenanezumab for her migraine headache. At home she takes albuterol, budesonide-formoterol for COPD. Home medications also include spironolactone. Her shortness of breath has been progressively getting worse, chest pain started about a week ago and initially it was somewhat sporadic and then over the past few days it has become persistent. Patient was evaluated in ER on 02/21. At that time chest x-ray, D-dimer and labs were unremarkable. She was sent home with pain medication. Patient reports no significant cardiac history. Patient reports smoking no illicit substances or using any illicit substances otherwise. On presentation patient was in respiratory distress with tachypnea of 27, tachycardia pulse rate 101, she was placed on oxygen mask 5 L with sats 90%. CBC showed WBC of 17.5 thousand, she appears to have some chronic leukocytosis. Hemoglobin 10.3 which is close to her baseline. VBG with PCO2 39, PO2 24, HCO3 16, lactic acid elevated at 4.2. Hyponatremia with sodium of 118, potassium 4 .6, creatinine 0.9, glucose 219. Troponin 0.04, elevated proBNP of 3458 high elevated from 176 in October 04. EKG showed sinus tachycardia, heart rate 101 bpm, no acute ST-T wave changes. CTA chest showed diffuse groundglass infiltrates involving both lungs, moderate underlying centrilobular em physematous changes. There are innumerable small cyst within the infiltrate which could be secondary to emphysema. A new 6 mm nodule developed in the medial segment right middle lobe. There is no effusion. Heart appears normal. Rapid Patricia test negative for influenza and COVID. 02/24. Patient still complaining of significant pleuritic chest pain particularly when she coughs. Sputum is grayish in color which has been sent for culture. Her respiratory reserves are poor. White cell count has improved to 14.5 from 17,000. Sodium improved to 127. K 4.6 down from 5.5 yesterday. Later this afternoon NaCl infusion will be discontinued. Troponin minimally elevated. 2D echocardiogram with normal EF 55-60%, no regional wall motion abnormality, mild tricuspid regurgitation. ROS Pertinent positives and negatives as noted in HPI. All other systems reviewed and negative. Reports shortness of breath some cough, malaise, pleuritic chest pain Denies palpitations, sweating Denies nausea vomiting or diarrhea Denies rash Physical examination General: alert, mild distress due to respiratory distress but nontoxic Skin: Warm. Dry. No rash. Normal color. Eyes: PERRL. EOMI. Mouth: Membranes moist. Normal inspection. Neck: Good ROM. No meningeal signs. Supple. Cardiovascular: Tachycardia, regular. No murmur. Cap refill 4 seconds. Carotid pulses 2+, radial pulses 1+. Respiratory: Bilateral wheeze and bronchospasm, on 5 L nasal cannula oxygen Gastrointestinal: Abdomen soft. No tenderness. No distention. Normal bowel sounds. No rebound tenderness or guarding. Back: Normal inspection. No CVA tenderness. No midline tenderness. Extremities: No tenderness. No swelling. No erythema. No edema. Good peripheral pulses x 4 Neurological: No focal neurological deficits observed. CN 2-12 intact. Alert. Oriented x 3 Assessment and plan Sepsis Patient presented with tachypnea of 27, tachycardia pulse rate 101, leukocytosis and suspected source Atypical pneumonia CT scan with diffuse groundglass infiltrate involving both lungs. No evidence of PE. Procalcitonin 6.6 Differentials are broad including atypical mycoplasma pneumonia, viral infection, noninfectious inflammatory condition, autoimmune pneumonitis Ceftriaxone and azithromycin. Sputum culture. Antitussives, cough suppressant, pain control for pleuritic chest pain COPD exacerbation Patient with bilateral wheezing, continues to smoke. Will manage with IV Solu- Medrol, DuoNebs, budesonide, pulmonary toileting Tobacco use disorder Over [id number] history of smoking and continues to smoke up to half a pack a day. Tobacco cessation advised. Nicotine patch offered however patient refused Acute hypoxic respiratory failure with diffuse bilateral groundglass opacities Secondary to above. Pulmonary nodules 6 mm right middle and 3mm right lower lobe nodules new from before. Patient will need pulmonary follow-up as an outpatient Hyponatremia, acute on chronic Patient admits to drinking at least 80 ounces of plain water every day. Coun seled on avoiding over drinking of free water. Improving with sodium chloride infusion which will be discontinued today Plain water restriction to 15-1800 cc/day Mild troponin elevation, will likely demand mediated Likely secondary to stress and demand. Troponin minimally elevated to 0.06, 0.04 Monitor on telemetry 2D echocardiogram with normal EF 55-60%, no regional wall motion abnormality, mild tricuspid regurgitation. Chronic anemia Hemoglobin over 10 close to baseline. Will monitor Hypertension Initially hypotensive, blood pressure improving. Holding losartan for now. Migraine headaches Continue home medications GERD Continue PPI ADHD/PTSD/borderline personality disorder Continue Adderall home dose Postmenopausal Continue hormone replacement therapy DVT prophylaxis and GI prophylaxis in place CODE STATUS Full code Time 55 minutes Constitutional Vitals: Vital Signs Temp Pulse Resp BP Pulse Ox O2 Del Method O2 Flow Rate 97.1 F 98 H 36 H 145/88 94 Oxymask 10 02/24/23 16:01 02/24/23 19:04 02/24/23 19:04 02/24/23 16:01 02/24/23 19:04 02/24/23 19:04 02/24/23 19:04 Period Temp Pulse Resp BP Sys/Caban Pulse Ox O2 Del Method O2 Flow Rate Last 24 Hr 97.1 F-98.0 F 78-99 22-42 97-152/69-93 88-100 BiPAP-Oxymask 5-30 Intake and Output 02/24/23 02/24/23 02/24/23 03:59 11:59 19:59 Intake Total 276 250 360 Output Total 1752 1551 1000 Balance -1476 1301 -640 Weight 71.123 kg Intake & Output: Intake & Output 02/24/23 02/24/23 02/24/23 03:59 11:59 19:59 Intake Total 276 250 360 Output Total 1752 1551 1000 Balance -1476 -1301 -640 Weight 71.123 kg Intake: IV 156 250 Zithromax 500 mg In Dextrose 5% 250 in Water 250 ml @ 250 mls/hr IV Q24H [facility] Rx#:[id number] Lactated Ringers 1,000 ml @ 100 0 mls/hr IV .Q10H [facility] Rx#: [id number] Magnesium Sulfate 24.36 Meq In 56 Dextrose 5% in Water 50 ml @ 19 mls/hr IV ONCE ONE Rx#: [id number] Sodium Chloride 3% 100 ml @ 35 100 mls/hr IV ONCE ONE Rx#: [id number] Oral 120 360 Output: Void Amount 1750 1550 1000 # of times incontinent of urine 2 1 Other: Meal Apple juice Breakfast Percent of Meal Consumed 75% Urine Appearance Clear Clear Clear Urine Color Yellow Yellow Yellow Urine Odor Normal Normal OBJ DATA Labs 02/24/23 05:28 02/24/23 16:33 Labs: Abnormal Lab Results 02/24/23 02/24/23 02/24/23 16:33 05:28 05:28 WBC 14.5 H RBC 3.31 L Hgb 10.0 L Hct 29.2 L POC Hct RDW 15.9 H Immature Gran % (Auto) 1.0 H Neut % (Auto) 92.4 H Lymph % (Auto) 4.7 L Lymph # (Auto) 0.68 L Immature Gran # 0.14 H Absolute Neutrophils 13.35 H ESR POC pCO2 POC pO2 POC HCO3 POC ABG Base Excess POC VBG pH POC VBG pCO2 at Temp POC VBG pO2 POC VBG HCO3 POC VBG Total CO2 POC Venous O2 Sat POC VBG Base Excess VBG Lactic Acid Hgb O2 Saturation POC Sodium Sodium 129 L 127 L Potassium POC Chloride Chloride 95 L 95 L Carbon Dioxide 21 L 18 L POC Total CO2 Anion Gap Creatinine 0.5 L 0.5 L Glucose 146 H 161 H POC Glucose Calcium 8.5 L 8.4 L POC WB Ioniz Calcium AST 33 H Troponin T C-React Prot High Sens NT-Pro-B Natriuret Pep Procalcitonin Urine Ketones Urine RBC Urine Mucus POC Troponin I 02/23/23 02/23/23 02/23/23 18:45 17:51 16:56 WBC RBC Hgb Hct POC Hct RDW Immature Gran % (Auto) Neut % (Auto) Lymph % (Auto) Lymph # (Auto) Immature Gran # Absolute Neutrophils ESR POC pCO2 27.5 L POC pO2 63 L POC HCO3 15.2 L POC ABG Base Excess -10.0 L POC VBG pH POC VBG pCO2 at Temp POC VBG pO2 POC VBG HCO3 POC VBG Total CO2 POC Venous O2 Sat POC VBG Base Excess VBG Lactic Acid Hgb O2 Saturation 91.0 L POC Sodium Sodium Potassium POC Chloride Chloride Carbon Dioxide POC Total CO2 16.0 L Anion Gap Creatinine Glucose POC Glucose Calcium POC WB Ioniz Calcium AST Troponin T C-React Prot High Sens NT-Pro-B Natriuret Pep Procalcitonin 5.95 H Urine Ketones 20 A Urine RBC 4 H Urine Mucus Few A POC Troponin I 02/23/23 02/23/23 02/23/23 16:56 15:12 11:51 WBC RBC Hgb Hct POC Hct 34.0 L RDW Immature Gran % (Auto) Neut % (Auto) Lymph % (Auto) Lymph # (Auto) Immature Gran # Absolute Neutrophils ESR POC pCO2 POC pO2 POC HCO3 POC ABG Base Excess POC VBG pH POC VBG pCO2 at Temp POC VBG pO2 POC VBG HCO3 POC VBG Total CO2 POC Venous O2 Sat POC VBG Base Excess VBG Lactic Acid Hgb O2 Saturation POC Sodium 120 L Sodium 116 L* Potassium 5.5 H POC Chloride 91 L Chloride 88 L Carbon Dioxide 12 L POC Total CO2 17.0 L Anion Gap Creatinine Glucose 138 H POC Glucose 221 H Calcium 8.0 L POC WB Ioniz Calcium 1.06 L AST 35 H Troponin T 0.06 H* C-React Prot High Sens 194.9 H NT-Pro-B Natriuret Pep Procalcitonin Urine Ketones Urine RBC Urine Mucus POC Troponin I 02/23/23 02/23/23 02/23/23 11:49 11:46 11:40 WBC RBC Hgb Hct POC Hct RDW Immature Gran % (Auto) Neut % (Auto) Lymph % (Auto) Lymph # (Auto) Immature Gran # Absolute Neutrophils ESR POC pCO2 POC pO2 POC HCO3 POC ABG Base Excess POC VBG pH 7.23 L POC VBG pCO2 at Temp 39.8 L POC VBG pO2 24 L POC VBG HCO3 16.8 L POC VBG Total CO2 18.0 L POC Venous O2 Sat 33.0 L POC VBG Base Excess -11.0 L VBG Lactic Acid 4.2 H* Hgb O2 Saturation POC Sodium Sodium Potassium POC Chloride Chloride Carbon Dioxide POC Total CO2 Anion Gap Creatinine Glucose POC Glucose Calcium POC WB Ioniz Calcium AST Troponin T C-React Prot High Sens 220.6 H NT-Pro-B Natriuret Pep Procalcitonin Urine Ketones Urine RBC Urine Mucus POC Troponin I 0.19 H 02/23/23 02/23/23 02/23/23 11:40 11:40 11:40 WBC RBC Hgb Hct POC Hct RDW Immature Gran % (Auto) Neut % (Auto) Lymph % (Auto) Lymph # (Auto) Immature Gran # Absolute Neutrophils ESR 50 H POC pCO2 POC pO2 POC HCO3 POC ABG Base Excess POC VBG pH POC VBG pCO2 at Temp POC VBG pO2 POC VBG HCO3 POC VBG Total CO2 POC Venous O2 Sat POC VBG Base Excess VBG Lactic Acid Hgb O2 Saturation POC Sodium Sodium Potassium POC Chloride Chloride Carbon Dioxide POC Total CO2 Anion Gap Creatinine Glucose POC Glucose Calcium POC WB Ioniz Calcium AST Troponin T 0.04 H* C-React Prot High Sens NT-Pro-B Natriuret Pep Procalcitonin 6.60 H Urine Ketones Urine RBC Urine Mucus POC Troponin I 02/23/23 02/23/23 11:40 11:40 WBC 17.5 H RBC 3.45 L Hgb 10.3 L Hct 32.3 L POC Hct RDW 16.2 H Immature Gran % (Auto) 0.9 H Neut % (Auto) 82.4 H Lymph % (Auto) 13.6 L Lymph # (Auto) Immature Gran # 0.15 H Absolute Neutrophils 14.43 H ESR POC pCO2 POC pO2 POC HCO3 POC ABG Base Excess POC VBG pH POC VBG pCO2 at Temp POC VBG pO2 POC VBG HCO3 POC VBG Total CO2 POC Venous O2 Sat POC VBG Base Excess VBG Lactic Acid Hgb O2 Saturation POC Sodium Sodium 118 L* Potassium POC Chloride Chloride 87 L Carbon Dioxide 14 L POC Total CO2 Anion Gap 17.0 H Creatinine Glucose 219 H POC Glucose Calcium 8.1 L POC WB Ioniz Calcium AST 33 H Troponin T C-React Prot High Sens NT-Pro-B Natriuret Pep 3458.0 H Procalcitonin Urine Ketones Urine RBC Urine Mucus POC Troponin I Meds: Medications Acetaminophen (Acetaminophen 325 Mg Tablet) 650 mg PO Q6HP PRN; Protocol PRN Reason: Per Pain Protocol/Fever > 101 Last Admin: 02/23/23 19:47 Dose: 650 mg Albuterol Sulfate (Albuterol Sulfate 2.5 Mg/3 Ml Nebulizer) 2.5 mg NEB Q6HRT [facility] Last Admin: 02/24/23 19:02 Dose: 2.5 mg Amitriptyline HCl (Amitriptyline 25 Mg Tablet) 75 mg PO QHS [facility] Last Admin: 02/23/23 21:25 Dose: 75 mg Amitriptyline HCl (Amitriptyline 10 Mg Tablet) 10 mg PO HS [facility] Last Admin: 02/23/23 21:26 Dose: 10 mg Benzonatate (Benzonatate 100 Mg Capsule) 200 mg PO TID [facility] Last Admin: 02/24/23 15:01 Dose: 200 mg Budesonide (Budesonide 0.5 Mg/2 Ml Ampul.Neb) 0.5 mg NEB Q12 [facility] Last Admin: 02/24/23 19:02 Dose: 0.5 mg Ceftriaxone Sodium (Ceftriaxone 1 Gm Vial) 1 gm IV Q24H [facility] Last Admin: 02/24/23 09:29 Dose: 1 gm Cyclobenzaprine HCl (Cyclobenzaprine 10 Mg Tablet) 10 mg PO HS [facility] Last Admin: 02/23/23 21:27 Dose: 10 mg Docusate Sodium (Docusate Sodium 100 Mg Capsule) 100 mg PO BID [facility] Last Admin: 02/24/23 09:30 Dose: 100 mg Enoxaparin Sodium (Enoxaparin 40 Mg/0.4 Ml Syringe) 40 mg SQ DAILY [facility] Last Admin: 02/24/23 09:30 Dose: 40 mg Estradiol (Estradiol 1 Mg Tablet) 1 mg PO DAILY [facility] Last Admin: 02/24/23 09:30 Dose: 1 mg Guaifenesin/Codeine Phosphate (Guaifenesin/Codeine 10 Ml Udc) 10 ml PO Q4HP PRN PRN Reason: Cough Last Admin: 02/24/23 18:59 Dose: 10 ml Hydromorphone HCl (Hydromorphone 0.5 Mg/0.5 Ml Syringe) 0.5 mg IV Q6H PRN; Protocol PRN Reason: Per Pain Protocol Azithromycin 500 mg/ Dextrose 250 mls @ 250 mls/hr IV Q24H [facility]; Protocol Stop: 02/25/23 10:59 Last Infusion: 02/24/23 11:29 Dose: Infused Sodium Chloride (Sodium Chloride 0.9%) 1,000 mls @ 50 mls/hr IV .Q20H [facility] Last Admin: 02/24/23 17:10 Dose: Not Given Lactulose (Lactulose 20 Gm/30 Ml Oral.Antonia) 10 gm PO DAILYP PRN PRN Reason: Constipation Lidocaine (Lidocaine Patch) 1 patch TOPICAL DAILY@1000 BEULAH Last Admin: 02/24/23 09:29 Dose: 1 patch Methylprednisolone Sodium Succinate (Methylprednisolone Sod Succ 40 Mg/Ml Vial) 40 mg IV Q8 [facility] Last Admin: 02/24/23 15:00 Dose: 40 mg Omeprazole (Omeprazole 20 Mg Capsule) 40 mg PO BIDAC [facility] Last Admin: 02/24/23 18:06 Dose: 40 mg Ondansetron HCl (Ondansetron 4 Mg/2 Ml Vial) 4 mg IV Q4HP PRN; Protocol PRN Reason: Nausea And Vomiting Last Admin: 02/23/23 23:10 Dose: 4 mg Ondansetron HCl (Ondansetron 4 Mg Odt Tablet) 4 mg SL TIDP PRN PRN Reason: Nausea And Vomiting Oxycodone/Acetaminophen (Oxycodone/Apap 5/325mg Tablet) 1 tab PO Q4HP PRN; Protocol PRN Reason: Per Pain Protocol Last Admin: 02/24/23 18:19 Dose: 1 tab Dextroamphetamine- Amphetamine 20 Mg Capsule,Extended Release 1 dose PO QAM [facility] Last Admin: 02/24/23 09:18 Dose: Not Given Rimegepant [Nurtec Odt] 75 Mg Tablet, Disintegrating 1 dose PO DAILY [facility] Last Admin: 02/24/23 09:18 Dose: Not Given Promethazine HCl (Promethazine 25 Mg/Ml Vial) 12.5 mg IV Q4-6HP PRN PRN Reason: Nausea And Vomiting, Last Admin: 02/24/23 18:19 Dose: 12.5 mg Senna (Sennosides 1 Tablet) 2 tab PO HSP PRN PRN Reason: Constipation Sodium Chloride (0.9 % Sodium Chloride 10 Ml Syringe) 10 ml IV Q8 [facility] Last Admin: 02/24/23 15:01 Dose: 10 ml Temazepam (Temazepam 15 Mg Capsule) 45 mg PO HS [facility] Last Admin: 02/23/23 21:26 Dose: 45 mg A/P Time Spent With Patient Time: Total time spent is greater than 50% in coordination of care (as documented) at patient's floor/unit and/or counseling patient:
[2023-02-24] MEDS: CYCLOBENZAPRINE 10 MG TABLET PO SCH (20:24)
[2023-02-24] MEDS: AMITRIPTYLINE 25 MG TABLET PO SCH (20:24)
[2023-02-24] MEDS: TEMAZEPAM 15 MG CAPSULE PO SCH (20:24)
[2023-02-24] MEDS: LOSARTAN 25 MG TABLET PO SCH (20:25)
[2023-02-24] MEDS: SPIRONOLACTONE 25 MG TABLET PO SCH (20:26)
[2023-02-24] MEDS: AMITRIPTYLINE 10 MG TABLET PO SCH (20:26)
[2023-02-25] MEDS: PROMETHAZINE 25 MG/ML VIAL IV PRN ×2 (00:15→10:34)
[2023-02-25] MEDS: oxyCODONE/APAP 5/325MG TABLET PO PRN ×2 (00:16→10:35)
[2023-02-25] MEDS: guaiFENesin/CODEINE 10 ML UDC PO PRN ×2 (00:19→17:58)
[2023-02-25] MEDS: ALBUTEROL SULFATE 2.5 MG/3 ML NEBULIZER NEB SCH ×4 (01:11→19:26)
[2023-02-25] MEDS: methylPREDNISolone SOD SUCC 40 MG/ML VIAL IV SCH ×4 (05:14→21:16)
[2023-02-25] MEDS: 0.9 % SODIUM CHLORIDE 10 ML SYRINGE IV SCH ×3 (05:14→20:46)
[2023-02-25 06:27] LABS: Basophils # (Auto) 0.06 K/mcL (0.00-0.30); Basophils % (Auto) 0.3 % (0.0-2.0); Eosinophils # (Auto) 0 K/mcL (0.00-0.70); Eosinophils % (Auto) 0 % (0.0-7.0); Hematocrit 29.4 % (34.1-44.9); Hemoglobin 9.3 g/dL (11.2-15.7); Lymphocytes # (Auto) 0.72 K/mcL (1.50-4.80); Lymphocytes % (Auto) 3.3 % (15.5-49.0); Mean Cell Volume 95.8 fL (80.0-100.0); Mean Corpuscular HGB Conc 31.6 g/dL (31.0-36.0); Mean Platelet Volume 9.3 fL (8.8-12.5); Monocytes # (Auto) 0.48 K/mcL (0.10-0.90); Monocytes % (Auto) 2.2 % (1.0-12.0); Neutrophils % (Auto) 91.8 % (38.0-78.0); Platelet Count 315 K/mcL (140-440); RBC 3.07 M/mcL (3.59-5.38); Red Cell Distribution Width 17.1 % (11.5-14.5)
--- NOTE | 2023-02-25 07:28 | EKG ---
[facility] Test Date: 2023-02-23 Pat Name: Grace Unger Department: ED Room: Gender: Female Director Critical Care: : 1970 Requested By: Portia Morales Order Number: [id number] Reading MD: Bhavik Peterson M.D. Measurements Intervals [facility] Rate: 101 P: 66 MN: 162 QRS: 4 QRSD: 124 T: 5 QT: 361 QTc: 468 Interpretive Statements Sinus tachycardia Probable left atrial enlargement INCOMPLETE RIGHT BUNDLE BRANCH BLOCK Electronically Signed On 02-25-2023 7:28:49 PDT by Bhavik Peterson M.D. /[id number]
--- NOTE | 2023-02-25 07:29 | EKG ---
[facility] Test Date: 2023-02-23 Pat Name: Grace Unger Department: ED Room: Gender: Female Patient Access Representative: : 1970 Requested By: Portia Morales Order Number: [id number] Reading MD: Bhavik Peterson M.D. Measurements Intervals [place] Rate: 97 P: 63 UT: 155 QRS: 10 QRSD: 119 T: 2 QT: 362 QTc: 460 Interpretive Statements Sinus rhythm Incomplete right bundle branch block Electronically Signed On 02-25-2023 7:28:59 PDT by Bhavik Peterson M.D. /[id number]
[2023-02-25] MEDS: BUDESONIDE 0.5 MG/2 ML AMPUL.NEB NEB SCH ×2 (07:31→19:26)
[2023-02-25 07:39] LABS: ALT/SGPT 14 U/L (<40); AST/SGOT 30 U/L (<32); Albumin 3.8 gm/dL (3.2-5.2); Albumin/Globulin Ratio 1.3 (1.0-2.3); Alkaline Phosphatase 97 U/L (39-117); Bilirubin,Total < 0.2 mg/dL (0.1-1.0); Blood Urea Nitrogen 7 mg/dL (6-20); Calcium 8.5 mg/dL (8.6-10.4); Carbon Dioxide 20 mmol/L (22-30); Chloride 97 mmol/L (96-108); Globulin 2.9 gm/dL (2.2-3.7); Glomerular Filtration Rate 110; Glucose 146 mg/dL (70-105)
[2023-02-25] MEDS: ENOXAPARIN 40 MG/0.4 ML SYRINGE SQ SCH (08:59)
[2023-02-25] MEDS: DOCUSATE SODIUM 100 MG CAPSULE PO SCH ×2 (09:00→20:41)
[2023-02-25] MEDS: AZITHROMYCIN 500 MG in DEXTROSE 5% IN WATER 250 ML IV SCH (09:00)
[2023-02-25] MEDS: OMEPRAZOLE 20 MG CAPSULE PO SCH ×2 (09:00→16:03)
[2023-02-25] MEDS: BENZONATATE 100 MG CAPSULE PO SCH ×5 (09:00→20:45)
[2023-02-25] MEDS: ESTRADIOL 1 MG TABLET PO SCH (09:00)
[2023-02-25] MEDS: RIMEGEPANT 75 MG PO SCH (09:01)
[2023-02-25] MEDS: DEXTROAMPHETAMINE AMPHETAMINE 20 MG PO SCH (09:01)
[2023-02-25] MEDS: LIDOCAINE PATCH TOPICAL SCH ×2 (09:01→10:34)
[2023-02-25] MEDS: cefTRIAXone 1 GM VIAL IV SCH (09:01)
[2023-02-25] MEDS: 0.9 % SODIUM CHLORIDE 1,000 ML IV SCH (12:16)
--- NOTE | 2023-02-25 12:21 | Internal Med Progress Note ---
SUBJECTIVE Subjective Patient information: Note initiated : 02/25/23 at 12:18 pm Service Date, if different from initiated Date: [] Patient: Grace Unger 52 y/o F admitted on 02/23/23 for Shortness of Breath. Chief Complaint: [] Additional PMFSH (Level 3 Only): History of Present Illness Patient is a 52 years old female with history of COPD/asthma, current smoker, tobacco use disorder, hypertension, chronic hyponatremia, GERD, fibromyalgia, migraine headaches presented with shortness of breath and right sided thoracic wall pain for the past 2 days. Patient has remote history of spontaneous pneumothorax x3 which occurred on the left side. Patient does have a family history of spontaneous pneumothorax in close relatives. Patient also reported that she has history of pleurisy and it does feel similar. Pain gets worse with movement. Patient reported that she has been feeling more short of breath over the past 2-month and has increased use of her short acting inhaler. She is on monoclonal antibody galcenanezumab for her migraine headache. At home she takes albuterol, budesonide-formoterol for COPD. Home medications also include spironolactone. Her shortness of breath has been progressively getting worse, chest pain started about a week ago and initially it was somewhat sporadic and then over the past few days it has become persistent. Patient was evaluated in ER on 02/21. At that time chest x-ray, D-dimer and labs were unremarkable. She was sent home with pain medication. Patient reports no significant cardiac history. Patient reports smoking no illicit substances or using any illicit substances otherwise. On presentation patient was in respiratory distress with tachypnea of 27, tachycardia pulse rate 101, she was placed on oxygen mask 5 L with sats 90%. CBC showed WBC of 17.5 thousand, she appears to have some chronic leukocytosis. Hemoglobin 10.3 which is close to her baseline. VBG with PCO2 39, PO2 24, HCO3 16, lactic acid elevated at 4.2. Hyponatremia with sodium of 118, potassium 4.6, creatinine 0.9, glucose 219. Troponin 0.04, elevated proBNP of 3458 high elevated from 176 in October 04. EKG showed sinus tachycardia, heart rate 101 bpm, no acute ST-T wave changes. CTA chest showed diffuse groundglass infiltrates involving both lungs, moderate underlying centrilobular e mphysematous changes. There are innumerable small cyst within the infiltrate which could be secondary to emphysema. A new 6 mm nodule developed in the medial segment right middle lobe. There is no effusion. Heart appears normal. Rapid Patricia test negative for influenza and COVID. 02/24. Patient still complaining of significant pleuritic chest pain particularly when she coughs. Sputum is grayish in color which has been sent for culture. Her respiratory reserves are poor. White cell count has improved to 14.5 from 17,000. Sodium improved to 127. K 4.6 down from 5.5 yesterday. Later this afternoon NaCl infusion will be discontinued. Troponin minimally elevated. 2D echocardiogram with normal EF 55-60%, no regional wall motion abnormality, mild tricuspid regurgitation. 02/15 overnight patient was on BiPAP for respiratory distress. This morning she is on 11L O2, she desats easily on minimal ambulation. Leukocytosis is 22,000 likely secondary to steroids, Pro-Fidel down to 1.5 from 5.9. Serum sodium improved to 129. Will give sodium tablets, on fluid restriction. Sputum cultu re with oral contamination and no culture was done. Respiratory viral panel has been negative. ROS Pertinent positives and negatives as noted in HPI. All other systems reviewed and negative. Reports shortness of breath some cough, malaise, pleuritic chest pain Denies palpitations, sweating Denies nausea vomiting or diarrhea Denies rash Physical examination General: alert, sitting up, in no acute distress Skin: Warm. Dry. No rash. Normal color. Eyes: PERRL. EOMI. Mouth: Membranes moist. Normal inspection. Neck: Good ROM. No meningeal signs. Supple. Cardiovascular: S1 and S2, no murmurs heard Respiratory: Patient has bilateral rales, on supplemental oxygen Gastrointestinal: Abdomen soft. No tenderness. No distention. Normal bowel sounds. No rebound tenderness or guarding. Back: Normal inspection. No CVA tenderness. No midline tenderness. Extremities: No tenderness. No swelling. No erythema. No edema. Good peripheral pulses x 4 Neurological: Alert and oriented, moving all limbs symmetrically Assessment and plan Sepsis Patient presented with tachypnea of 27, tachycardia pulse rate 101, leukocytosis and suspected source Atypical pneumonia CT scan with diffuse groundglass infiltrate involving both lungs. No evidence of PE. Procalcitonin 6.6 Differentials are broad including atypical mycoplasma pneumonia, viral infection, noninfectious inflammatory condition, autoimmune pneumonitis Ceftriaxone and azithromycin. Sputum culture with oral contamination was not processed Procalcitonin trending down Antitussives, cough suppressant, pain control for pleuritic chest pain COPD exacerbation Patient with bilateral wheezing, continues to smoke. Continue IV Solu-Medrol, DuoNebs, budesonide, pulmonary toileting Tobacco use disorder Over [id number] history of smoking and continues to smoke up to half a pack a day. Tobacco cessation advised. Nicotine patch offered however patient refused Acute hypoxic respiratory failure with diffuse bilateral groundglass opacities Secondary to above. Pulmonary nodules 6 mm right middle and 3mm right lower lobe nodules new from before. Patient will need pulmonary follow-up as an outpatient Hyponatremia, acute on chronic Patient admits to drinking at least 80 ounces of plain water every day. Counseled on avoiding over drinking of free water. Plain water restriction to [id number] cc/day Start sodium tablet 1 g 3 times daily Mild troponin elevation, will likely demand mediated Likely secondary to stress and demand. Troponin minimally elevated to 0.06, 0.04 Monitor on telemetry 2D echocardiogram with normal EF 55-60%, no regional wall motion abnormality, mild tricuspid regurgitation. Chronic anemia Hemoglobin over 10 close to baseline. Will monitor Hypertension Initially hypotensive, blood pressure improving. Holding losartan for now. Migraine headaches Continue home medications GERD Continue PPI ADHD/PTSD/borderline personality disorder Continue Adderall home dose Postmenopausal Continue hormone replacement therapy DVT prophylaxis and GI prophylaxis in place CODE STATUS Full code Time 40 minutes Constitutional Vitals: Vital Signs Temp Pulse Resp BP Pulse Ox O2 Del Method O2 Flow Rate 97.6 F 92 H 29 H 150/94 97 BiPAP 13 02/25/23 12:01 02/25/23 12:06 02/25/23 12:06 02/25/23 12:01 02/25/23 12:01 02/25/23 12:06 02/25/23 12:01 Period Temp Pulse Resp BP Sys/Caban Pulse Ox O2 Del Method O2 Flow Rate Last 24 Hr 97.1 F-97.6 F 80-99 20-40 114-163/77-98 90-100 BiPAP-Oxymask, BiPAP 6-13 Intake and Output 02/25/23 02/25/23 02/25/23 03:59 11:59 19:59 Intake Total 540 Output Total 400 201 Balance -400 339 Weight 71.033 kg 71.033 kg Patient Weight 02/26/23 03:59 Weight 71.033 kg Intake & Output: Intake & Output 02/25/23 02/25/23 02/25/23 03:59 11:59 19:59 Intake Total 540 Output Total 400 201 Balance -400 339 Weight 71.033 kg 71.033 kg Intake: IV 250 Zithromax 500 mg In Dextrose 5% 250 in Water 250 ml @ 250 mls/hr IV Q24H [facility] Rx#:[id number] Oral 290 Output: Void Amount 400 200 # of times incontinent of urine 1 Other: Urine Appearance Clear Clear Urine Color Dark Yellow Yellow Urine Odor Normal OBJ DATA Labs 02/25/23 05:18 02/25/23 05:18 Labs: Abnormal Lab Results 02/25/23 02/25/23 02/25/23 05:18 05:18 05:18 WBC 22.0 H RBC 3.07 L Hgb 9.3 L Hct 29.4 L POC Hct RDW 17.1 H Immature Gran % (Auto) 2.4 H Neut % (Auto) 91.8 H Lymph % (Auto) 3.3 L Lymph # (Auto) 0.72 L Immature Gran # 0.53 H Absolute Neutrophils 20.17 H ESR POC pCO2 POC pO2 POC HCO3 POC ABG Base Excess POC VBG pH POC VBG pCO2 at Temp POC VBG pO2 POC VBG HCO3 POC VBG Total CO2 POC Venous O2 Sat POC VBG Base Excess VBG Lactic Acid Hgb O2 Saturation POC Sodium Sodium 129 L Potassium POC Chloride Chloride Carbon Dioxide 20 L POC Total CO2 Anion Gap Creatinine 0.5 L Glucose 146 H POC Glucose Calcium 8.5 L POC WB Ioniz Calcium AST Troponin T C-React Prot High Sens NT-Pro-B Natriuret Pep Procalcitonin 1.58 H Urine Ketones Urine RBC Urine Mucus POC Troponin I 02/24/23 02/24/23 02/24/23 16:33 05:28 05:28 WBC 14.5 H RBC 3.31 L Hgb 10.0 L Hct 29.2 L POC Hct RDW 15.9 H Immature Gran % (Auto) 1.0 H Neut % (Auto) 92.4 H Lymph % (Auto) 4.7 L Lymph # (Auto) 0.68 L Immature Gran # 0.14 H Absolute Neutrophils 13.35 H ESR POC pCO2 POC pO2 POC HCO3 POC ABG Base Excess POC VBG pH POC VBG pCO2 at Temp POC VBG pO2 POC VBG HCO3 POC VBG Total CO2 POC Venous O2 Sat POC VBG Base Excess VBG Lactic Acid Hgb O2 Saturation POC Sodium Sodium 129 L 127 L Potassium POC Chloride Chloride 95 L 95 L Carbon Dioxide 21 L 18 L POC Total CO2 Anion Gap Creatinine 0.5 L 0.5 L Glucose 146 H 161 H POC Glucose Calcium 8.5 L 8.4 L POC WB Ioniz Calcium AST 33 H Troponin T C-React Prot High Sens NT-Pro-B Natriuret Pep Procalcitonin Urine Ketones Urine RBC Urine Mucus POC Troponin I 02/23/23 02/23/23 02/23/23 18:45 17:51 16:56 WBC RBC Hgb Hct POC Hct RDW Immature Gran % (Auto) Neut % (Auto) Lymph % (Auto) Lymph # (Auto) Immature Gran # Absolute Neutrophils ESR POC pCO2 27.5 L POC pO2 63 L POC HCO3 15.2 L POC ABG Base Excess -10.0 L POC VBG pH POC VBG pCO2 at Temp POC VBG pO2 POC VBG HCO3 POC VBG Total CO2 POC Venous O2 Sat POC VBG Base Excess VBG Lactic Acid Hgb O2 Saturation 91.0 L POC Sodium Sodium Potassium POC Chloride Chloride Carbon Dioxide POC Total CO2 16.0 L Anion Gap Creatinine Glucose POC Glucose Calcium POC WB Ioniz Calcium AST Troponin T C-React Prot High Sens NT-Pro-B Natriuret Pep Procalcitonin 5.95 H Urine Ketones 20 A Urine RBC 4 H Urine Mucus Few A POC Troponin I 02/23/23 02/23/23 02/23/23 16:56 15:12 11:51 WBC RBC Hgb Hct POC Hct 34.0 L RDW Immature Gran % (Auto) Neut % (Auto) Lymph % (Auto) Lymph # (Auto) Immature Gran # Absolute Neutrophils ESR POC pCO2 POC pO2 POC HCO3 POC ABG Base Excess POC VBG pH POC VBG pCO2 at Temp POC VBG pO2 POC VBG HCO3 POC VBG Total CO2 POC Venous O2 Sat POC VBG Base Excess VBG Lactic Acid Hgb O2 Saturation POC Sodium 120 L Sodium 116 L* Potassium 5.5 H POC Chloride 91 L Chloride 88 L Carbon Dioxide 12 L POC Total CO2 17.0 L Anion Gap Creatinine Glucose 138 H POC Glucose 221 H Calcium 8.0 L POC WB Ioniz Calcium 1.06 L AST 35 H Troponin T 0.06 H* C-React Prot High Sens 194.9 H NT-Pro-B Natriuret Pep Procalcitonin Urine Ketones Urine RBC Urine Mucus POC Troponin I 02/23/23 02/23/23 02/23/23 11:49 11:46 11:40 WBC RBC Hgb Hct POC Hct RDW Immature Gran % (Auto) Neut % (Auto) Lymph % (Auto) Lymph # (Auto) Immature Gran # Absolute Neutrophils ESR POC pCO2 POC pO2 POC HCO3 POC ABG Base Excess POC VBG pH 7.23 L POC VBG pCO2 at Temp 39.8 L POC VBG pO2 24 L POC VBG HCO3 16.8 L POC VBG Total CO2 18.0 L POC Venous O2 Sat 33.0 L POC VBG Base Excess -11.0 L VBG Lactic Acid 4.2 H* Hgb O2 Saturation POC Sodium Sodium Potassium POC Chloride Chloride Carbon Dioxide POC Total CO2 Anion Gap Creatinine Glucose POC Glucose Calcium POC WB Ioniz Calcium AST Troponin T C-React Prot High Sens 220.6 H NT-Pro-B Natriuret Pep Procalcitonin Urine Ketones Urine RBC Urine Mucus POC Troponin I 0.19 H 02/23/23 02/23/23 02/23/23 11:40 11:40 11:40 WBC RBC Hgb Hct POC Hct RDW Immature Gran % (Auto) Neut % (Auto) Lymph % (Auto) Lymph # (Auto) Immature Gran # Absolute Neutrophils ESR 50 H POC pCO2 POC pO2 POC HCO3 POC ABG Base Excess POC VBG pH POC VBG pCO2 at Temp POC VBG pO2 POC VBG HCO3 POC VBG Total CO2 POC Venous O2 Sat POC VBG Base Excess VBG Lactic Acid Hgb O2 Saturation POC Sodium Sodium Potassium POC Chloride Chloride Carbon Dioxide POC Total CO2 Anion Gap Creatinine Glucose POC Glucose Calcium POC WB Ioniz Calcium AST Troponin T 0.04 H* C-React Prot High Sens NT-Pro-B Natriuret Pep Procalcitonin 6.60 H Urine Ketones Urine RBC Urine Mucus POC Troponin I 02/23/23 02/23/23 11:40 11:40 WBC 17.5 H RBC 3.45 L Hgb 10.3 L Hct 32.3 L POC Hct RDW 16.2 H Immature Gran % (Auto) 0.9 H Neut % (Auto) 82.4 H Lymph % (Auto) 13.6 L Lymph # (Auto) Immature Gran # 0.15 H Absolute Neutrophils 14.43 H ESR POC pCO2 POC pO2 POC HCO3 POC ABG Base Excess POC VBG pH POC VBG pCO2 at Temp POC VBG pO2 POC VBG HCO3 POC VBG Total CO2 POC Venous O2 Sat POC VBG Base Excess VBG Lactic Acid Hgb O2 Saturation POC Sodium Sodium 118 L* Potassium POC Chloride Chloride 87 L Carbon Dioxide 14 L POC Total CO2 Anion Gap 17.0 H Creatinine Glucose 219 H POC Glucose Calcium 8.1 L POC WB Ioniz Calcium AST 33 H Troponin T C-React Prot High Sens NT-Pro-B Natriuret Pep 3458.0 H Procalcitonin Urine Ketones Urine RBC Urine Mucus POC Troponin I Meds: Medications Acetaminophen (Acetaminophen 325 Mg Tablet) 650 mg PO Q6HP PRN; Protocol PRN Reason: Per Pain Protocol/Fever > 101 Last Admin: 02/23/23 19:47 Dose: 650 mg Albuterol Sulfate (Albuterol Sulfate 2.5 Mg/3 Ml Nebulizer) 2.5 mg NEB Q6HRT [facility] Last Admin: 02/25/23 12:06 Dose: 2.5 mg Amitriptyline HCl (Amitriptyline 25 Mg Tablet) 75 mg PO QHS [facility] Last Admin: 02/24/23 20:24 Dose: 75 mg Amitriptyline HCl (Amitriptyline 10 Mg Tablet) 10 mg PO [facility] Last Admin: 02/24/23 20:26 Dose: 10 mg Benzonatate (Benzonatate 100 Mg Capsule) 200 mg PO TID [facility] Last Admin: 02/25/23 09:00 Dose: 200 mg Budesonide (Budesonide 0.5 Mg/2 Ml Ampul.Neb) 0.5 mg NEB Q12 [facility] Last Admin: 02/25/23 07:31 Dose: 0.5 mg Ceftriaxone Sodium (Ceftriaxone 1 Gm Vial) 1 gm IV Q24H [facility] Last Admin: 02/25/23 09:01 Dose: 1 gm Cyclobenzaprine HCl (Cyclobenzaprine 10 Mg Tablet) 10 mg PO [facility] Last Admin: 02/24/23 20:24 Dose: 10 mg Docusate Sodium (Docusate Sodium 100 Mg Capsule) 100 mg PO BID [facility] Last Admin: 02/25/23 09:00 Dose: 100 mg Enoxaparin Sodium (Enoxaparin 40 Mg/0.4 Ml Syringe) 40 mg SQ DAILY [facility] Last Admin: 02/25/23 08:59 Dose: 40 mg Estradiol (Estradiol 1 Mg Tablet) 1 mg PO DAILY [facility] Last Admin: 02/25/23 09:00 Dose: 1 mg Guaifenesin/Codeine Phosphate (Guaifenesin/Codeine 10 Ml Udc) 10 ml PO Q4HP PRN PRN Reason: Cough Last Admin: 02/25/23 00:19 Dose: 10 ml Hydromorphone HCl (Hydromorphone 0.5 Mg/0.5 Ml Syringe) 0.5 mg IV Q6H PRN; Protocol PRN Reason: Per Pain Protocol Sodium Chloride (Sodium Chloride 0.9%) 1,000 mls @ 50 mls/hr IV .Q20H [facility] Last Admin: 02/25/23 12:16 Dose: Not Given Lactulose (Lactulose 20 Gm/30 Ml Oral.Antonia) 10 gm PO DAILYP PRN PRN Reason: Constipation Lidocaine (Lidocaine Patch) 1 patch TOPICAL DAILY@1000 [facility] Last Admin: 02/25/23 10:34 Dose: 1 patch Losartan Potassium (Losartan 25 Mg Tablet) 25 mg PO HS [facility] Last Admin: 02/24/23 20:25 Dose: 25 mg Methylprednisolone Sodium Succinate (Methylprednisolone Sod Succ 40 Mg/Ml Vial) 40 mg IV Q8 [facility] Last Admin: 02/25/23 05:14 Dose: 40 mg Omeprazole (Omeprazole 20 Mg Capsule) 40 mg PO BIDAC [facility] Last Admin: 02/25/23 09:00 Dose: 40 mg Ondansetron HCl (Ondansetron 4 Mg/2 Ml Vial) 4 mg IV Q4HP PRN; Protocol PRN Reason: Nausea And Vomiting Last Admin: 02/23/23 23:10 Dose: 4 mg Ondansetron HCl (Ondansetron 4 Mg Odt Tablet) 4 mg SL TIDP PRN PRN Reason: Nausea And Vomiting Oxycodone/Acetaminophen (Oxycodone/Apap 5/325mg Tablet) 1 tab PO Q4HP PRN; Protocol PRN Reason: Per Pain Protocol Last Admin: 02/25/23 10:35 Dose: 1 tab Dextroamphetamine- Amphetamine 20 Mg Capsule,Extended Release 1 dose PO QAM [facility] Last Admin: 02/25/23 09:01 Dose: Not Given Rimegepant [Nurtec Odt] 75 Mg Tablet, Disintegrating 1 dose PO DAILY [facility] Last Admin: 02/25/23 09:01 Dose: Not Given Promethazine HCl (Promethazine 25 Mg/Ml Vial) 12.5 mg IV Q4-6HP PRN PRN Reason: Nausea And Vomiting, Last Admin: 02/25/23 10:34 Dose: 12.5 mg Senna (Sennosides 1 Tablet) 2 tab PO HSP PRN PRN Reason: Constipation Sodium Chloride (0.9 % Sodium Chloride 10 Ml Syringe) 10 ml IV Q8 [facility] Last Admin: 02/25/23 05:14 Dose: 10 ml Spironolactone (Spironolactone 25 Mg Tablet) 25 mg PO HS [facility] Last Admin: 02/24/23 20:26 Dose: 25 mg Temazepam (Temazepam 15 Mg Capsule) 45 mg PO HS [facility] Last Admin: 02/24/23 20:24 Dose: 45 mg A/P Time Spent With Patient Time: Total time spent is greater than 50% in coordination of care (as documented) at patient's floor/unit and/or counseling patient:
[2023-02-25] MEDS ORDERED: SODIUM CHLORIDE 1 GM TABLET PO SCH (12:30)
[2023-02-25] MEDS: ONDANSETRON 4 MG/2 ML VIAL IV PRN (20:40)
[2023-02-25] MEDS: ACETAMINOPHEN 325 MG TABLET PO PRN (20:41)
[2023-02-25] MEDS: LOSARTAN 25 MG TABLET PO SCH (20:41)
[2023-02-25] MEDS: TEMAZEPAM 15 MG CAPSULE PO SCH (20:42)
[2023-02-25] MEDS: CYCLOBENZAPRINE 10 MG TABLET PO SCH (20:42)
[2023-02-25] MEDS: SPIRONOLACTONE 25 MG TABLET PO SCH (20:42)
[2023-02-25] MEDS: AMITRIPTYLINE 25 MG TABLET PO SCH (20:42)
[2023-02-25] MEDS: AMITRIPTYLINE 10 MG TABLET PO SCH (20:44)
[2023-02-25] MEDS: SODIUM CHLORIDE 1 GM TABLET PO SCH (20:46)
[2023-02-25] MEDS: SIMETHICONE 80 MG TAB.CHEW CHEWED PRN (22:10)
[2023-02-26] MEDS: ALBUTEROL SULFATE 2.5 MG/3 ML NEBULIZER NEB SCH ×4 (01:10→19:23)
[2023-02-26] MEDS: oxyCODONE/APAP 5/325MG TABLET PO PRN ×4 (01:36→20:29)
[2023-02-26] MEDS: guaiFENesin/CODEINE 10 ML UDC PO PRN ×3 (01:37→22:26)
[2023-02-26] MEDS: PROMETHAZINE 25 MG/ML VIAL IV PRN ×3 (01:37→20:30)
[2023-02-26] MEDS: methylPREDNISolone SOD SUCC 40 MG/ML VIAL IV SCH ×4 (05:38→21:51)
[2023-02-26] MEDS: 0.9 % SODIUM CHLORIDE 10 ML SYRINGE IV SCH ×4 (05:39→20:40)
[2023-02-26 06:42] LABS: Basophils # (Auto) 0.05 K/mcL (0.00-0.30); Basophils % (Auto) 0.2 % (0.0-2.0); Eosinophils # (Auto) 0.01 K/mcL (0.00-0.70); Eosinophils % (Auto) 0 % (0.0-7.0); Hematocrit 27.5 % (34.1-44.9); Hemoglobin 8.8 g/dL (11.2-15.7); Lymphocytes # (Auto) 0.76 K/mcL (1.50-4.80); Lymphocytes % (Auto) 3.6 % (15.5-49.0); Mean Cell Volume 94.5 fL (80.0-100.0); Mean Platelet Volume 8.9 fL (8.8-12.5); Monocytes # (Auto) 0.45 K/mcL (0.10-0.90); Monocytes % (Auto) 2.2 % (1.0-12.0); Neutrophils % (Auto) 89.7 % (38.0-78.0); Platelet Count 310 K/mcL (140-440); RBC 2.91 M/mcL (3.59-5.38); Red Cell Distribution Width 17.2 % (11.5-14.5); WBC 20.8 K/mcL (4.5-11.0)
[2023-02-26] MEDS: 0.9 % SODIUM CHLORIDE 1,000 ML IV SCH (06:59)
[2023-02-26] MEDS: OMEPRAZOLE 20 MG CAPSULE PO SCH ×2 (07:09→16:44)
[2023-02-26 07:15] LABS: ALT/SGPT 14 U/L (<40); AST/SGOT 23 U/L (<32); Albumin 3.8 gm/dL (3.2-5.2); Albumin/Globulin Ratio 1.6 (1.0-2.3); Alkaline Phosphatase 76 U/L (39-117); Bilirubin,Total < 0.2 mg/dL (0.1-1.0); Blood Urea Nitrogen 9 mg/dL (6-20); Calcium 8.2 mg/dL (8.6-10.4); Carbon Dioxide 23 mmol/L (22-30); Chloride 99 mmol/L (96-108); Globulin 2.4 gm/dL (2.2-3.7); Glomerular Filtration Rate 103; Glucose 150 mg/dL (70-105)
[2023-02-26] MEDS: BUDESONIDE 0.5 MG/2 ML AMPUL.NEB NEB SCH ×2 (07:58→19:23)
[2023-02-26] MEDS: RIMEGEPANT 75 MG PO SCH (08:51)
[2023-02-26] MEDS: DEXTROAMPHETAMINE AMPHETAMINE 20 MG PO SCH (08:51)
[2023-02-26] MEDS: ENOXAPARIN 40 MG/0.4 ML SYRINGE SQ SCH (09:09)
[2023-02-26] MEDS: cefTRIAXone 1 GM VIAL IV SCH (09:09)
[2023-02-26] MEDS: ESTRADIOL 1 MG TABLET PO SCH (09:09)
[2023-02-26] MEDS: SODIUM CHLORIDE 1 GM TABLET PO SCH ×3 (09:09→21:51)
[2023-02-26] MEDS: BENZONATATE 100 MG CAPSULE PO SCH ×3 (09:10→20:23)
[2023-02-26] MEDS: DOCUSATE SODIUM 100 MG CAPSULE PO SCH ×2 (09:10→20:24)
[2023-02-26] MEDS: LIDOCAINE PATCH TOPICAL SCH ×2 (09:40→22:24)
[2023-02-26] MEDS: AZITHROMYCIN 500 MG in DEXTROSE 5% IN WATER 250 ML IV SCH (10:54)
--- NOTE | 2023-02-26 11:13 | Internal Med Progress Note ---
SUBJECTIVE Subjective Patient information: Note initiated : 02/26/23 at 11:09 am Service Date, if different from initiated Date: [] Patient: Grace Unger 52 y/o F admitted on 02/23/23 for Shortness of Breath. Chief Complaint: [] Additional PMFSH (Level 3 Only): History of Present Illness Patient is a 52 years old female with history of COPD/asthma, current smoker, tobacco use disorder, hypertension, chronic hyponatremia, GERD, fibromyalgia, migraine headaches presented with shortness of breath and right sided thoracic wall pain for the past 2 days. Patient has remote history of spontaneous pneumothorax x3 which occurred on the left side. Patient does have a family history of spontaneous pneumothorax in close relatives. Patient also reported that she has history of pleurisy and it does feel similar. Pain gets worse with movement. Patient reported that she has been feeling more short of breath over the past 2-month and has increased use of her short acting inhaler. She is on monoclonal antibody galcenanezumab for her migraine headache. At home she takes albuterol, budesonide-formoterol for COPD. Home medications also include spironolactone. Her shortness of breath has been progressively getting worse, chest pain started about a week ago and initially it was somewhat sporadic and then over the past few days it has become persistent. Patient was evaluated in ER on 02/21. At that time chest x-ray, D-dimer and labs were unremarkable. She was sent home with pain medication. Patient reports no significant cardiac history. Patient reports smoking no illicit substances or using any illicit substances otherwise. On presentation patient was in respiratory distress with tachypnea of 27, tachycardia pulse rate 101, she was placed on oxygen mask 5 L with sats 90%. CBC showed WBC of 17.5 thousand, she appears to have some chronic leukocytosis. Hemoglobin 10.3 which is close to her baseline. VBG with PCO2 39, PO2 24, HCO3 16, lactic acid elevated at 4.2. Hyponatremia with sodium of 118, potassium 4.6, creatinine 0.9, glucose 219. Troponin 0.04, elevated proBNP of 3458 high elevated from 176 in October 04. EKG showed sinus tachycardia, heart rate 101 bpm, no acute ST-T wave changes. CTA chest showed diffuse groundglass infiltrates involving both lungs, moderate underlying centrilobular e mphysematous changes. There are innumerable small cyst within the infiltrate which could be secondary to emphysema. A new 6 mm nodule developed in the medial segment right middle lobe. There is no effusion. Heart appears normal. Rapid Patricia test negative for influenza and COVID. 02/24. Patient still complaining of significant pleuritic chest pain particularly when she coughs. Sputum is grayish in color which has been sent for culture. Her respiratory reserves are poor. White cell count has improved to 14.5 from 17,000. Sodium improved to 127. K 4.6 down from 5.5 yesterday. Later this afternoon NaCl infusion will be discontinued. Troponin minimally elevated. 2D echocardiogram with normal EF 55-60%, no regional wall motion abnormality, mild tricuspid regurgitation. 02/25 overnight patient was on BiPAP for respiratory distress. This morning she is on 11L O2, she desats easily on minimal ambulation. Leukocytosis is 22,000 likely secondary to steroids, Pro-Fidel down to 1.5 from 5.9. Serum sodium improved to 129. Will give sodium tablets, on fluid restriction. Sputum cult ure with oral contamination and no culture was done. Respiratory viral panel has been negative. 02/26. Patient used BiPAP for comfort overnight, this morning she is on oxy mask 7 L oxygen and feeling improved, WBC 20,000, hemoglobin 8.8. Sputum culture with oral contamination and was not processed ROS Reports no fever or chills Reports breathing is better, still cough but significantly improved, sputum is clear now Denies palpitations, sweating Denies nausea vomiting or diarrhea Denies rash Physical examination General: alert, sitting up, in no acute distress Skin: Warm. Dry. No rash. Normal color. Eyes: PERRL. EOMI. Mouth: Membranes moist. Normal inspection. Neck: Good ROM. No meningeal signs. Supple. Cardiovascular: S1 and S2, no murmurs heard Respiratory: Less bilateral rails and wheezing, improved air entry, on supplemental oxygen Gastrointestinal: Abdomen soft. No tenderness. No distention. Normal bowel sounds. No rebound tenderness or guarding. Back: Normal inspection. No CVA tenderness. No midline tenderness. Extremities: No tenderness. No swelling. No erythema. No edema. Good peripheral pulses x 4 Neurological: Alert and oriented, moving all limbs symmetrically Assessment and plan Sepsis Patient presented with tachypnea of 27, tachycardia pulse rate 101, leukocytosis and suspected source Atypical pneumonia CT scan with diffuse groundglass infiltrate involving both lungs. No evidence of PE. Procalcitonin 6.6 Differentials are broad including atypical mycoplasma pneumonia, viral i nfection, noninfectious inflammatory condition, autoimmune pneumonitis Ceftriaxone and azithromycin. Sputum culture with oral contamination was not processed Procalcitonin trending down Antitussives, cough suppressant, pain control for pleuritic chest pain Repeat CT chest today COPD exacerbation Patient with bilateral wheezing, continues to smoke. Continue IV Solu-Medrol, DuoNebs, budesonide, pulmonary toileting Tobacco use disorder Over [id number] history of smoking and continues to smoke up to half a pack a day. Tobacco cessation advised. Nicotine patch offered however patient refused Acute hypoxic respiratory failure with diffuse bilateral groundglass opacities Secondary to above. Pulmonary nodules 6 mm right middle and 3mm right lower lobe nodules new from before. Patient wi ll need pulmonary follow-up as an outpatient Hyponatremia, acute on chronic Patient admits to drinking at least 80 ounces of plain water every day. Counseled on avoiding over drinking of free water. Plain water restriction to 7587-7440 cc/day Start sodium tablet 1 g 3 times daily, sodium now 133 Mild troponin elevation, will likely demand mediated Likely secondary to stress and demand. Troponin minimally elevated to 0.06, 0.04 Monitor on telemetry 2D echocardiogram with normal EF 55-60%, no regional wall motion abnormality, mild tricuspid regurgitation. Chronic anemia Hemoglobin over 10 close to baseline. Will monitor Hypertension Initially hypotensive, blood pressure improving. Will resume losartan Migraine headaches Continue home medications GERD Continue PPI ADHD/PTSD/borderline personality disorder Continue Adderall home dose Postmenopausal Continue hormone replacement therapy DVT prophylaxis and GI prophylaxis in place CODE STATUS Full code Increase ambulation Time 40 minutes Constitutional Vitals: Vital Signs Temp Pulse Resp BP Pulse Ox O2 Del Method O2 Flow Rate 97.3 F 86 28 H 168/95 94 Oxymask 8 02/26/23 08:07 02/26/23 10:23 02/26/23 10:23 02/26/23 10:23 02/26/23 10:23 02/26/23 10:23 02/26/23 10:23 Period Temp Pulse Resp BP Sys/Caban Pulse Ox O2 Del Method O2 Flow Rate Last 24 Hr 97.1 F-98.5 F 86-99 22-41 128-171/78-101 92-100 BiPAP-Oxymask 7-13 Intake and Output 02/25/23 02/26/23 02/26/23 19:59 03:59 11:59 Intake Total 120 240 900 Output Total 875 900 200 Balance -755 -660 700 Weight 73.164 kg Intake & Output: Intake & Output 02/25/23 02/26/23 02/26/23 19:59 03:59 11:59 Intake Total 120 240 900 Output Total 875 900 200 Balance -755 -660 700 Weight 73.164 kg Intake: Oral 120 240 900 Output: Urine Catheter Amount 450 Void Amount 425 900 200 Other: Meal Breakfast Percent of Meal Consumed 75% Feeding Ability Independent Urine Appearance Clear Clear Clear Urine Color Yellow Yellow Yellow Pale OBJ DATA Labs 02/26/23 05:35 02/26/23 05:35 Labs: Abnormal Lab Results 02/26/23 02/26/23 02/25/23 05:35 05:35 05:18 WBC 20.8 H RBC 2.91 L Hgb 8.8 L Hct 27.5 L POC Hct RDW 17.2 H Immature Gran % (Auto) 4.3 H Neut % (Auto) 89.7 H Lymph % (Auto) 3.6 L Lymph # (Auto) 0.76 L Immature Gran # 0.89 H Absolute Neutrophils 18.67 H ESR POC pCO2 POC pO2 POC HCO3 POC ABG Base Excess POC VBG pH POC VBG pCO2 at Temp POC VBG pO2 POC VBG HCO3 POC VBG Total CO2 POC Venous O2 Sat POC VBG Base Excess VBG Lactic Acid Hgb O2 Saturation POC Sodium Sodium Potassium POC Chloride Chloride Carbon Dioxide POC Total CO2 Anion Gap Creatinine Glucose 150 H POC Glucose Calcium 8.2 L POC WB Ioniz Calcium AST Troponin T C-React Prot High Sens NT-Pro-B Natriuret Pep Procalcitonin 1.58 H Urine Ketones Urine RBC Urine Mucus POC Troponin I 02/25/23 02/25/23 02/24/23 05:18 05:18 16:33 WBC 22.0 H RBC 3.07 L Hgb 9.3 L Hct 29.4 L POC Hct RDW 17.1 H Immature Gran % (Auto) 2.4 H Neut % (Auto) 91.8 H Lymph % (Auto) 3.3 L Lymph # (Auto) 0.72 L Immature Gran # 0.53 H Absolute Neutrophils 20.17 H ESR POC pCO2 POC pO2 POC HCO3 POC ABG Base Excess POC VBG pH POC VBG pCO2 at Temp POC VBG pO2 POC VBG HCO3 POC VBG Total CO2 POC Venous O2 Sat POC VBG Base Excess VBG Lactic Acid Hgb O2 Saturation POC Sodium Sodium 129 L 129 L Potassium POC Chloride Chloride 95 L Carbon Dioxide 20 L 21 L POC Total CO2 Anion Gap Creatinine 0.5 L 0.5 L Glucose 146 H 146 H POC Glucose Calcium 8.5 L 8.5 L POC WB Ioniz Calcium AST 33 H Troponin T C-React Prot High Sens NT-Pro-B Natriuret Pep Procalcitonin Urine Ketones Urine RBC Urine Mucus POC Troponin I 02/24/23 02/24/23 02/23/23 05:28 05:28 18:45 WBC 14.5 H RBC 3.31 L Hgb 10.0 L Hct 29.2 L POC Hct RDW 15.9 H Immature Gran % (Auto) 1.0 H Neut % (Auto) 92.4 H Lymph % (Auto) 4.7 L Lymph # (Auto) 0.68 L Immature Gran # 0.14 H Absolute Neutrophils 13.35 H ESR POC pCO2 POC pO2 POC HCO3 POC ABG Base Excess POC VBG pH POC VBG pCO2 at Temp POC VBG pO2 POC VBG HCO3 POC VBG Total CO2 POC Venous O2 Sat POC VBG Base Excess VBG Lactic Acid Hgb O2 Saturation POC Sodium Sodium 127 L Potassium POC Chloride Chloride 95 L Carbon Dioxide 18 L POC Total CO2 Anion Gap Creatinine 0.5 L Glucose 161 H POC Glucose Calcium 8.4 L POC WB Ioniz Calcium AST Troponin T C-React Prot High Sens NT-Pro-B Natriuret Pep Procalcitonin Urine Ketones 20 A Urine RBC 4 H Urine Mucus Few A POC Troponin I 02/23/23 02/23/23 02/23/23 17:51 16:56 16:56 WBC RBC Hgb Hct POC Hct RDW Immature Gran % (Auto) Neut % (Auto) Lymph % (Auto) Lymph # (Auto) Immature Gran # Absolute Neutrophils ESR POC pCO2 27.5 L POC pO2 63 L POC HCO3 15.2 L POC ABG Base Excess -10.0 L POC VBG pH POC VBG pCO2 at Temp POC VBG pO2 POC VBG HCO3 POC VBG Total CO2 POC Venous O2 Sat POC VBG Base Excess VBG Lactic Acid Hgb O2 Saturation 91.0 L POC Sodium Sodium 116 L* Potassium 5.5 H POC Chloride Chloride 88 L Carbon Dioxide 12 L POC Total CO2 16.0 L Anion Gap Creatinine Glucose 138 H POC Glucose Calcium 8.0 L POC WB Ioniz Calcium AST 35 H Troponin T C-React Prot High Sens 194.9 H NT-Pro-B Natriuret Pep Procalcitonin 5.95 H Urine Ketones Urine RBC Urine Mucus POC Troponin I 02/23/23 02/23/23 02/23/23 15:12 11:51 11:49 WBC RBC Hgb Hct POC Hct 34.0 L RDW Immature Gran % (Auto) Neut % (Auto) Lymph % (Auto) Lymph # (Auto) Immature Gran # Absolute Neutrophils ESR POC pCO2 POC pO2 POC HCO3 POC ABG Base Excess POC VBG pH POC VBG pCO2 at Temp POC VBG pO2 POC VBG HCO3 POC VBG Total CO2 POC Venous O2 Sat POC VBG Base Excess VBG Lactic Acid Hgb O2 Saturation POC Sodium 120 L Sodium Potassium POC Chloride 91 L Chloride Carbon Dioxide POC Total CO2 17.0 L Anion Gap Creatinine Glucose POC Glucose 221 H Calcium POC WB Ioniz Calcium 1.06 L AST Troponin T 0.06 H* C-React Prot High Sens NT-Pro-B Natriuret Pep Procalcitonin Urine Ketones Urine RBC Urine Mucus POC Troponin I 0.19 H 02/23/23 02/23/23 02/23/23 11:46 11:40 11:40 WBC RBC Hgb Hct POC Hct RDW Immature Gran % (Auto) Neut % (Auto) Lymph % (Auto) Lymph # (Auto) Immature Gran # Absolute Neutrophils ESR 50 H POC pCO2 POC pO2 POC HCO3 POC ABG Base Excess POC VBG pH 7.23 L POC VBG pCO2 at Temp 39.8 L POC VBG pO2 24 L POC VBG HCO3 16.8 L POC VBG Total CO2 18.0 L POC Venous O2 Sat 33.0 L POC VBG Base Excess -11.0 L VBG Lactic Acid 4.2 H* Hgb O2 Saturation POC Sodium Sodium Potassium POC Chloride Chloride Carbon Dioxide POC Total CO2 Anion Gap Creatinine Glucose POC Glucose Calcium POC WB Ioniz Calcium AST Troponin T C-React Prot High Sens 220.6 H NT-Pro-B Natriuret Pep Procalcitonin Urine Ketones Urine RBC Urine Mucus POC Troponin I 02/23/23 02/23/23 02/23/23 11:40 11:40 11:40 WBC 17.5 H RBC 3.45 L Hgb 10.3 L Hct 32.3 L POC Hct RDW 16.2 H Immature Gran % (Auto) 0.9 H Neut % (Auto) 82.4 H Lymph % (Auto) 13.6 L Lymph # (Auto) Immature Gran # 0.15 H Absolute Neutrophils 14.43 H ESR POC pCO2 POC pO2 POC HCO3 POC ABG Base Excess POC VBG pH POC VBG pCO2 at Temp POC VBG pO2 POC VBG HCO3 POC VBG Total CO2 POC Venous O2 Sat POC VBG Base Excess VBG Lactic Acid Hgb O2 Saturation POC Sodium Sodium Potassium POC Chloride Chloride Carbon Dioxide POC Total CO2 Anion Gap Creatinine Glucose POC Glucose Calcium POC WB Ioniz Calcium AST Troponin T 0.04 H* C-React Prot High Sens NT-Pro-B Natriuret Pep Procalcitonin 6.60 H Urine Ketones Urine RBC Urine Mucus POC Troponin I 02/23/23 11:40 WBC RBC Hgb Hct POC Hct RDW Immature Gran % (Auto) Neut % (Auto) Lymph % (Auto) Lymph # (Auto) Immature Gran # Absolute Neutrophils ESR POC pCO2 POC pO2 POC HCO3 POC ABG Base Excess POC VBG pH POC VBG pCO2 at Temp POC VBG pO2 POC VBG HCO3 POC VBG Total CO2 POC Venous O2 Sat POC VBG Base Excess VBG Lactic Acid Hgb O2 Saturation POC Sodium Sodium 118 L* Potassium POC Chloride Chloride 87 L Carbon Dioxide 14 L POC Total CO2 Anion Gap 17.0 H Creatinine Glucose 219 H POC Glucose Calcium 8.1 L POC WB Ioniz Calcium AST 33 H Troponin T C-React Prot High Sens NT-Pro-B Natriuret Pep 3458.0 H Procalcitonin Urine Ketones Urine RBC Urine Mucus POC Troponin I Meds: Medications Acetaminophen (Acetaminophen 325 Mg Tablet) 650 mg PO Q6HP PRN; Protocol PRN Reason: Per Pain Protocol/Fever > 101 Last Admin: 02/25/23 20:41 Dose: 650 mg Albuterol Sulfate (Albuterol Sulfate 2.5 Mg/3 Ml Nebulizer) 2.5 mg NEB Q6HRT BEULAH Last Admin: 02/26/23 07:51 Dose: 2.5 mg Amitriptyline HCl (Amitriptyline 25 Mg Tablet) 75 mg PO QHS BEULAH Last Admin: 02/25/23 20:42 Dose: 75 mg Amitriptyline HCl (Amitriptyline 10 Mg Tablet) 10 mg PO HS [facility] Last Admin: 02/25/23 20:44 Dose: 10 mg Benzonatate (Benzonatate 100 Mg Capsule) 200 mg PO TID [facility] Last Admin: 02/26/23 09:10 Dose: 200 mg Budesonide (Budesonide 0.5 Mg/2 Ml Ampul.Neb) 0.5 mg NEB Q12 [facility] Last Admin: 02/26/23 07:58 Dose: 0.5 mg Ceftriaxone Sodium (Ceftriaxone 1 Gm Vial) 1 gm IV Q24H [facility] Last Admin: 02/26/23 09:09 Dose: 1 gm Cyclobenzaprine HCl (Cyclobenzaprine 10 Mg Tablet) 10 mg PO [facility] Last Admin: 02/25/23 20:42 Dose: 10 mg Docusate Sodium (Docusate Sodium 100 Mg Capsule) 100 mg PO BID [facility] Last Admin: 02/26/23 09:10 Dose: 100 mg Enoxaparin Sodium (Enoxaparin 40 Mg/0.4 Ml Syringe) 40 mg SQ DAILY [facility] Last Admin: 02/26/23 09:09 Dose: 40 mg Estradiol (Estradiol 1 Mg Tablet) 1 mg PO DAILY [facility] Last Admin: 02/26/23 09:09 Dose: 1 mg Guaifenesin/Codeine Phosphate (Guaifenesin/Codeine 10 Ml Udc) 10 ml PO Q4HP PRN PRN Reason: Cough Last Admin: 02/26/23 01:37 Dose: 10 ml Hydromorphone HCl (Hydromorphone 0.5 Mg/0.5 Ml Syringe) 0.5 mg IV Q6H PRN; Protocol PRN Reason: Per Pain Protocol Sodium Chloride (Sodium Chloride 0.9%) 1,000 mls @ 50 mls/hr IV .Q20H [facility] Last Admin: 02/26/23 06:59 Dose: Not Given Azithromycin 500 mg/ Dextrose 250 mls @ 250 mls/hr IV Q24H [facility]; Protocol Stop: 02/27/23 11:59 Last Admin: 02/26/23 10:54 Dose: 250 mls/hr Lactulose (Lactulose 20 Gm/30 Ml Oral.Antonia) 10 gm PO DAILYP PRN PRN Reason: Constipation Lidocaine (Lidocaine Patch) 1 patch TOPICAL DAILY@1000 [facility] Last Admin: 02/26/23 09:40 Dose: Not Given Losartan Potassium (Losartan 25 Mg Tablet) 25 mg PO HS [facility] Last Admin: 02/25/23 20:41 Dose: 25 mg Methylprednisolone Sodium Succinate (Methylprednisolone Sod Succ 40 Mg/Ml Vial) 40 mg IV Q8 [facility] Last Admin: 02/26/23 06:26 Dose: 40 mg Omeprazole (Omeprazole 20 Mg Capsule) 40 mg PO BIDAC [facility] Last Admin: 02/26/23 07:09 Dose: 40 mg Ondansetron HCl (Ondansetron 4 Mg/2 Ml Vial) 4 mg IV Q4HP PRN; Protocol PRN Reason: Nausea And Vomiting Last Admin: 02/25/23 20:40 Dose: 4 mg Ondansetron HCl (Ondansetron 4 Mg Odt Tablet) 4 mg SL TIDP PRN PRN Reason: Nausea And Vomiting Oxycodone/Acetaminophen (Oxycodone/Apap 5/325mg Tablet) 1 tab PO Q4HP PRN; Protocol PRN Reason: Per Pain Protocol Last Admin: 02/26/23 09:09 Dose: 1 tab Dextroamphetamine- Amphetamine 20 Mg Capsule,Extended Release 1 dose PO QAM [facility] Last Admin: 02/26/23 08:51 Dose: Not Given Rimegepant [Nurtec Odt] 75 Mg Tablet, Disintegrating 1 dose PO DAILY [facility] Last Admin: 02/26/23 08:51 Dose: Not Given Promethazine HCl (Promethazine 25 Mg/Ml Vial) 12.5 mg IV Q4-6HP PRN PRN Reason: Nausea And Vomiting, Last Admin: 02/26/23 01:37 Dose: 12.5 mg Senna (Sennosides 1 Tablet) 2 tab PO HSP PRN PRN Reason: Constipation Simethicone (Simethicone 80 Mg Tab.Chew) 160 mg CHEWED QIDP PRN PRN Reason: Abdominal Distention Last Admin: 02/25/23 22:10 Dose: 160 mg Sodium Chloride (0.9 % Sodium Chloride 10 Ml Syringe) 10 ml IV Q8 [facility] Last Admin: 02/26/23 05:39 Dose: 10 ml Sodium Chloride (Sodium Chloride 1 Gm Tablet) 1 gm PO TID [facility] Last Admin: 02/26/23 09:09 Dose: 1 gm Spironolactone (Spironolactone 25 Mg Tablet) 25 mg PO [facility] Last Admin: 02/25/23 20:42 Dose: 25 mg Temazepam (Temazepam 15 Mg Capsule) 45 mg PO [facility] Last Admin: 02/25/23 20:42 Dose: 45 mg A/P Time Spent With Patient Time: Total time spent is greater than 50% in coordination of care (as documented) at patient's floor/unit and/or counseling patient:
[2023-02-26] MEDS: LOSARTAN 50 MG TABLET PO SCH (11:35)
--- NOTE | 2023-02-26 12:08 | Cat Scan Report ---
History: Follow-up atypical pneumonia, short of breath TECHNIQUE: The chest was imaged without contrast in axial plane at 2.5 mm intervals. Sagittal, coronal and axial MIPS images were created. The radiation exposure was limited using dose reduction technology. FINDINGS: There is moderately severe emphysema predominantly involving the upper lobes. Widespread diffuse groundglass alveolar opacities are present throughout both lungs. There is relative sparing of the periphery. No lobar consolidation is present. No suspicious mass has developed. The nodules seen in the right middle lobe on the prior CT done on 02/23/23 are no longer present. These may have been an inflammatory reaction. There is no pleural effusion. There are no abnormally enlarged lymph nodes. The heart is normal in size and contour. There is no atherosclerotic disease in the coronary arteries nor the aorta. IMPRESSION: Stable diffuse groundglass infiltrates throughout both lungs superimposed upon moderately severe emphysema. This is more likely a noninfectious inflammatory process such as nonspecific interstitial pneumonia (NSIP), hypersensitivity reaction or desquamative interstitial pneumonia rather than a viral infection. Interpreted and Authenticated by: Edward Peterson 02/26/23
[2023-02-26] MEDS: SIMETHICONE 80 MG TAB.CHEW CHEWED PRN ×2 (13:52→20:24)
[2023-02-26] MEDS ORDERED: LABETALOL 5 MG/ML ML IV PRN (18:30)
[2023-02-26] MEDS: LOSARTAN 25 MG TABLET PO SCH ×2 (18:32→20:39)
[2023-02-26] MEDS: SPIRONOLACTONE 25 MG TABLET PO SCH ×2 (18:33→20:39)
[2023-02-26] MEDS: ONDANSETRON 4 MG/2 ML VIAL IV PRN (18:41)
[2023-02-26] MEDS: hydrALAZINE 20 MG/ML VIAL IV PRN (19:30)
[2023-02-26] MEDS: AMITRIPTYLINE 25 MG TABLET PO SCH (20:23)
[2023-02-26] MEDS: CYCLOBENZAPRINE 10 MG TABLET PO SCH (20:24)
[2023-02-26] MEDS: AMITRIPTYLINE 10 MG TABLET PO SCH (20:24)
[2023-02-26] MEDS: TEMAZEPAM 15 MG CAPSULE PO SCH (20:24)
[2023-02-27] MEDS: ALBUTEROL SULFATE 2.5 MG/3 ML NEBULIZER NEB SCH ×4 (02:00→18:57)
[2023-02-27] MEDS: hydrALAZINE 20 MG/ML VIAL IV PRN (04:11)
[2023-02-27] MEDS: guaiFENesin/CODEINE 10 ML UDC PO PRN (04:32)
[2023-02-27] MEDS: 0.9 % SODIUM CHLORIDE 1,000 ML IV SCH (05:16)
[2023-02-27] MEDS: 0.9 % SODIUM CHLORIDE 10 ML SYRINGE IV SCH ×4 (05:20→22:35)
[2023-02-27] MEDS: methylPREDNISolone SOD SUCC 40 MG/ML VIAL IV SCH ×2 (05:20→21:34)
[2023-02-27 07:06] LABS: Basophils # (Auto) 0.14 K/mcL (0.00-0.30); Basophils % (Auto) 0.8 % (0.0-2.0); Eosinophils # (Auto) 0.01 K/mcL (0.00-0.70); Eosinophils % (Auto) 0.1 % (0.0-7.0); Hematocrit 29.6 % (34.1-44.9); Hemoglobin 9.7 g/dL (11.2-15.7); Lymphocytes # (Auto) 0.69 K/mcL (1.50-4.80); Mean Cell Volume 91.4 fL (80.0-100.0); Mean Corpuscular HGB Conc 32.8 g/dL (31.0-36.0); Mean Platelet Volume 9.1 fL (8.8-12.5); Monocytes % (Auto) 2.3 % (1.0-12.0); Neutrophils % (Auto) 88.8 % (38.0-78.0); Platelet Count 367 K/mcL (140-440); RBC 3.24 M/mcL (3.59-5.38); Red Cell Distribution Width 16.6 % (11.5-14.5); WBC 17.4 K/mcL (4.5-11.0)
[2023-02-27] MEDS: BUDESONIDE 0.5 MG/2 ML AMPUL.NEB NEB SCH ×3 (07:19→23:50)
[2023-02-27 08:43] LABS: ALT/SGPT 17 U/L (<40); AST/SGOT 23 U/L (<32); Albumin 3.8 gm/dL (3.2-5.2); Albumin/Globulin Ratio 1.5 (1.0-2.3); Alkaline Phosphatase 83 U/L (39-117); Bilirubin,Total < 0.2 mg/dL (0.1-1.0); Blood Urea Nitrogen 9 mg/dL (6-20); Calcium 8.5 mg/dL (8.6-10.4); Carbon Dioxide 23 mmol/L (22-30); Chloride 98 mmol/L (96-108); Globulin 2.6 gm/dL (2.2-3.7); Glomerular Filtration Rate 110; Glucose 126 mg/dL (70-105)
[2023-02-27] MEDS: BENZONATATE 100 MG CAPSULE PO SCH ×3 (09:08→21:31)
[2023-02-27] MEDS: ENOXAPARIN 40 MG/0.4 ML SYRINGE SQ SCH (09:08)
[2023-02-27] MEDS: OMEPRAZOLE 20 MG CAPSULE PO SCH ×2 (09:09→17:08)
[2023-02-27] MEDS: ESTRADIOL 1 MG TABLET PO SCH (09:09)
[2023-02-27] MEDS: SODIUM CHLORIDE 1 GM TABLET PO SCH ×3 (09:09→21:31)
[2023-02-27] MEDS: DOCUSATE SODIUM 100 MG CAPSULE PO SCH ×2 (09:09→21:31)
[2023-02-27] MEDS: LOSARTAN 50 MG TABLET PO SCH (09:09)
[2023-02-27] MEDS: DEXTROAMPHETAMINE AMPHETAMINE 20 MG PO SCH (09:10)
[2023-02-27] MEDS: RIMEGEPANT 75 MG PO SCH (09:10)
[2023-02-27] MEDS: cefTRIAXone 1 GM VIAL IV SCH (09:10)
[2023-02-27] MEDS: SPIRONOLACTONE 25 MG TABLET PO SCH (09:10)
--- NOTE | 2023-02-27 10:24 | Internal Med Progress Note ---
SUBJECTIVE Subjective Patient information: Note initiated : 02/27/23 at 9:29 am Service Date, if different from initiated Date: [] Patient: Grace Unger 52 y/o F admitted on 02/23/23 for Shortness of Breath. Chief Complaint: [] Additional PMFSH (Level 3 Only): History of Present Illness Patient is a 52 years old female with history of COPD/asthma, current smoker, tobacco use disorder, hypertension, chronic hyponatremia, GERD, fibromyalgia, migraine headaches presented with shortness of breath and right sided thoracic wall pain for the past 2 days. Patient has remote history of spontaneous pneumothorax x3 which occurred on the left side. Patient does have a family history of spontaneous pneumothorax in close relatives. Patient also reported that she has history of pleurisy and it does feel similar. Pain gets worse with movement. Patient reported that she has been feeling more short of breath over the past 2-month and has increased use of her short acting inhaler. She is on monoclonal antibody galcenanezumab for her migraine headache. At home she takes albuterol, budesonide-formoterol for COPD. Home medications also include spironolactone. Her shortness of breath has been progressively getting worse, chest pain started about a week ago and initially it was somewhat sporadic and then over the past few days it has become persistent. Patient was evaluated in ER on 02/21. At that time chest x-ray, D-dimer and labs were unremarkable. She was sent home with pain medication. Patient reports no significant cardiac history. Patient reports smoking no illicit substances or using any illicit substances otherwise. On presentation patient was in respiratory distress with tachypnea of 27, tachycardia pulse rate 101, she was placed on oxygen mask 5 L with sats 90%. CBC showed WBC of 17.5 thousand, she appears to have some chronic leukocytosis. Hemoglobin 10.3 which is close to her baseline. VBG with PCO2 39, PO2 24, HCO3 16, lactic acid elevated at 4.2. Hyponatremia with sodium of 118, potassium 4 .6, creatinine 0.9, glucose 219. Troponin 0.04, elevated proBNP of 3458 high elevated from 176 in October 04. EKG showed sinus tachycardia, heart rate 101 bpm, no acute ST-T wave changes. CTA chest showed diffuse groundglass infiltrates involving both lungs, moderate underlying centrilobular em physematous changes. There are innumerable small cyst within the infiltrate which could be secondary to emphysema. A new 6 mm nodule developed in the medial segment right middle lobe. There is no effusion. Heart appears normal. Rapid Patricia test negative for influenza and COVID. 02/24. Patient still complaining of significant pleuritic chest pain particularly when she coughs. Sputum is grayish in color which has been sent for culture. Her respiratory reserves are poor. White cell count has improved to 14.5 from 17,000. Sodium improved to 127. K 4.6 down from 5.5 yesterday. Later this afternoon NaCl infusion will be discontinued. Troponin minimally elevated. 2D echocardiogram with normal EF 55-60%, no regional wall motion abnormality, mild tricuspid regurgitation. 02/25 overnight patient was on BiPAP for respiratory distress. This morning she is on 11L O2, she desats easily on minimal ambulation. Leukocytosis is 22,000 likely secondary to steroids, Pro-Fidel down to 1.5 from 5.9. Serum sodium improved to 129. Will give sodium tablets, on fluid restriction. Sputum cultu re with oral contamination and no culture was done. Respiratory viral panel has been negative. 02/26. Patient used BiPAP for comfort overnight, this morning she is on oxy mask 7 L oxygen and feeling improved, WBC 20,000, hemoglobin 8.8. Sputum culture with oral contamination and was not processed 02/27. Overnight patient used BiPAP as she feels this will help her recover faster. CT scan on 02/26 showed stable diffuse groundglass opacities throughout both lungs. Patient is subjectively feeling better, she is on 6 L nasal cannula oxygen now this morning. Leukocytosis of 17,000 down from 20,000. We will wean her off IV Solu-Medrol. Her procalcitonin has also been trending low from 6 on admission to 1.5 couple days ago. ROS Reports no fever or chills Reports breathing is better, less cough, minimal sputum Denies palpitations, sweating Denies nausea vomiting or diarrhea Denies rash Physical examination General: alert, sitting up, in no acute distress Skin: Warm. Dry. No rash. Normal color. Eyes: PERRL. EOMI. Mouth: Membranes moist. Normal inspection. Neck: Good ROM. No meningeal signs. Supple. Cardiovascular: S1 and S2, no murmurs heard Respiratory: Minimal rales, on 6 L nasal cannula oxygen, no work of breathing Gastrointestinal: Abdomen soft. Nontender, bowel sounds active Back: Normal inspection. No CVA tenderness. No midline tenderness. Extremities: No tenderness. No swelling. No erythema. No edema. Good peripheral pulses x 4 Neurological: Alert and oriented, moving all limbs symmetrically Assessment and plan Sepsis Patient presented with tachypnea of 27, tachycardia pulse rate 101, leukocytosis and suspected source Atypical pneumonia CT scan with diffuse groundglass infiltrate involving both lungs. No evidence of PE. Procalcitonin 6.6 Differentials are broad including atypical mycoplasma pneumonia, viral infection, noninfectious inflammatory condition, autoimmune pneumonitis Sputum culture with oral contamination was not processed Procalcitonin and leukocytosis trending down Antitussives, cough suppressant, pain control for pleuritic chest pain Repeat CT chest on 02/26 with diffuse bilateral groundglass infiltrate. Continue ceftriaxone and azithromycin COPD exacerbation Patient with bilateral wheezing, continues to smoke. Wean off IV Solu-Medrol, DuoNebs, budesonide, pulmonary toileting Tobacco use disorder Over [id number] history of smoking and continues to smoke up to half a pack a day. Tobacco cessation advised. Nicotine patch offered however patient refused Acute hypoxic respiratory failure with diffuse bilateral groundglass opacities Secondary to above. Pulmonary nodules 6 mm right middle and 3mm right lower lobe nodules new from before. Patient will need pulmonary follow-up as an outpatient Hyponatremia, acute on chronic Patient admits to drinking at least 80 ounces of plain water every day. Counseled on avoiding over drinking of free water. Plain water restriction to [id number] cc/day Serum sodium 134 on sodium tablet 1 g 3 times daily Mild troponin elevation, will likely demand mediated Likely secondary to stress and demand. Troponin minimally elevated to 0.06, 0.04 Monitor on telemetry 2D echocardiogram with normal EF 55-60%, no regional wall motion abnormality, mild tricuspid regurgitation. Chronic anemia Stable Hypertension Initially hypotensive, now elevated blood pressure. Start amlodipine 5 mg daily, continue losartan 100 mg daily Migraine headaches Continue home medications GERD Continue PPI ADHD/PTSD/borderline personality disorder Continue Adderall home dose Postmenopausal Continue hormone replacement therapy DVT prophylaxis and GI prophylaxis in place CODE STATUS Full code Increase ambulation Time 40 minutes Constitutional Vitals: Vital Signs Temp Pulse Resp BP Pulse Ox O2 Del Method O2 Flow Rate 97.6 F 77 21 160/86 92 Room Air 6 02/27/23 08:01 02/27/23 08:01 02/27/23 08:01 02/27/23 08:01 02/27/23 08:01 02/27/23 08:01 02/27/23 06:55 Period Temp Pulse Resp BP Sys/Caban Pulse Ox O2 Del Method O2 Flow Rate Last 24 Hr 96.9 F-98.4 F 76-107 15-33 119-187/78-105 81-100 BiPAP-Room Air 3-40 Intake and Output 02/26/23 02/27/23 02/27/23 19:59 03:59 11:59 Intake Total 788 566 2479 Output Total 569 104 2168 Balance -412 159 -402 Weight 70.851 kg Intake & Output: Intake & Output 02/26/23 02/27/23 02/27/23 19:59 03:59 11:59 Intake Total 604 132 2556 Output Total 042 416 2641 Balance -412 159 -402 Weight 70.851 kg Intake: IV 250 Zithromax 500 mg In Dextrose 5% 250 in Water 250 ml @ 250 mls/hr IV Q24H [facility] Rx#:[id number] Oral 509 [id number] Output: Void Amount 907 266 9505 # of times incontinent of urine 2 1 2 Other: Meal Lunch Breakfast Percent of Meal Consumed 100% 100% Feeding Ability Independent Assist with Tray Set Up Urine Appearance Clear Clear Clear Urine Color Yellow Yellow Yellow Urine Odor Normal # Bowel Movements 0 OBJ DATA Labs 02/27/23 05:38 02/27/23 05:38 Labs: Abnormal Lab Results 02/27/23 02/27/23 02/26/23 05:38 05:38 05:35 WBC 17.4 H RBC 3.24 L Hgb 9.7 L Hct 29.6 L RDW 16.6 H Immature Gran % (Auto) 4.0 H Neut % (Auto) 88.8 H Lymph % (Auto) 4.0 L Lymph # (Auto) 0.69 L Immature Gran # 0.70 H Absolute Neutrophils 15.44 H Sodium Chloride Carbon Dioxide Creatinine 0.5 L Glucose 126 H 150 H Calcium 8.5 L 8.2 L AST Procalcitonin 02/26/23 02/25/23 02/25/23 05:35 05:18 05:18 WBC 20.8 H RBC 2.91 L Hgb 8.8 L Hct 27.5 L RDW 17.2 H Immature Gran % (Auto) 4.3 H Neut % (Auto) 89.7 H Lymph % (Auto) 3.6 L Lymph # (Auto) 0.76 L Immature Gran # 0.89 H Absolute Neutrophils 18.67 H Sodium 129 L Chloride Carbon Dioxide 20 L Creatinine 0.5 L Glucose 146 H Calcium 8.5 L AST Procalcitonin 1.58 H 02/25/23 02/24/23 05:18 16:33 WBC 22.0 H RBC 3.07 L Hgb 9.3 L Hct 29.4 L RDW 17.1 H Immature Gran % (Auto) 2.4 H Neut % (Auto) 91.8 H Lymph % (Auto) 3.3 L Lymph # (Auto) 0.72 L Immature Gran # 0.53 H Absolute Neutrophils 20.17 H Sodium 129 L Chloride 95 L Carbon Dioxide 21 L Creatinine 0.5 L Glucose 146 H Calcium 8.5 L AST 33 H Procalcitonin Meds: Medications Acetaminophen (Acetaminophen 325 Mg Tablet) 650 mg PO Q6HP PRN; Protocol PRN Reason: Per Pain Protocol/Fever > 101 Last Admin: 02/25/23 20:41 Dose: 650 mg Albuterol Sulfate (Albuterol Sulfate 2.5 Mg/3 Ml Nebulizer) 2.5 mg NEB Q6HRT [facility] Last Admin: 02/27/23 06:55 Dose: 2.5 mg Amitriptyline HCl (Amitriptyline 25 Mg Tablet) 75 mg PO QHS [facility] Last Admin: 02/26/23 20:23 Dose: 75 mg Amitriptyline HCl (Amitriptyline 10 Mg Tablet) 10 mg PO HS [facility] Last Admin: 02/26/23 20:24 Dose: 10 mg Benzonatate (Benzonatate 100 Mg Capsule) 200 mg PO TID [facility] Last Admin: 02/27/23 09:08 Dose: 200 mg Budesonide (Budesonide 0.5 Mg/2 Ml Ampul.Neb) 0.5 mg NEB Q12 [facility] Last Admin: 02/27/23 07:19 Dose: 0.5 mg Ceftriaxone Sodium (Ceftriaxone 1 Gm Vial) 1 gm IV Q24H [facility] Last Admin: 02/27/23 09:10 Dose: 1 gm Cyclobenzaprine HCl (Cyclobenzaprine 10 Mg Tablet) 10 mg PO HS [facility] Last Admin: 02/26/23 20:24 Dose: 10 mg Docusate Sodium (Docusate Sodium 100 Mg Capsule) 100 mg PO BID [facility] Last Admin: 02/27/23 09:09 Dose: 100 mg Enoxaparin Sodium (Enoxaparin 40 Mg/0.4 Ml Syringe) 40 mg SQ DAILY [facility] Last Admin: 02/27/23 09:08 Dose: 40 mg Estradiol (Estradiol 1 Mg Tablet) 1 mg PO DAILY [facility] Last Admin: 02/27/23 09:09 Dose: 1 mg Guaifenesin/Codeine Phosphate (Guaifenesin/Codeine 10 Ml Udc) 10 ml PO Q4HP PRN PRN Reason: Cough Last Admin: 02/27/23 04:32 Dose: 10 ml Hydralazine HCl (Hydralazine 20 Mg/Ml Vial) 10 mg IV Q4-6HP PRN PRN Reason: Hypertension Last Admin: 02/27/23 04:11 Dose: 10 mg Hydromorphone HCl (Hydromorphone 0.5 Mg/0.5 Ml Syringe) 0.5 mg IV Q6H PRN; Protocol PRN Reason: Per Pain Protocol Sodium Chloride (Sodium Chloride 0.9%) 1,000 mls @ 50 mls/hr IV .Q20H [facility] Last Admin: 02/27/23 05:16 Dose: Not Given Azithromycin 500 mg/ Dextrose 250 mls @ 250 mls/hr IV Q24H [facility]; Protocol Stop: 02/27/23 11:59 Last Infusion: 02/26/23 13:13 Dose: Infused Labetalol HCl (Labetalol 5 Mg/Ml Ml) 10 mg IV Q2H PRN PRN Reason: Hypertension Last Admin: 02/27/23 06:00 Dose: 10 mg Lactulose (Lactulose 20 Gm/30 Ml Oral.Antonai) 10 gm PO DAILYP PRN PRN Reason: Constipation Lidocaine (Lidocaine Patch) 1 patch TOPICAL DAILY@1000 [facility] Last Admin: 02/26/23 22:24 Dose: 1 patch Losartan Potassium (Losartan 25 Mg Tablet) 25 mg PO HS [facility] Last Admin: 02/26/23 20:39 Dose: Not Given Losartan Potassium (Losartan 50 Mg Tablet) 100 mg PO DAILY [facility] Last Admin: 02/27/23 09:09 Dose: 100 mg Methylprednisolone Sodium Succinate (Methylprednisolone Sod Succ 40 Mg/Ml Vial) 40 mg IV Q8 [facility] Last Admin: 02/27/23 05:20 Dose: 40 mg Omeprazole (Omeprazole 20 Mg Capsule) 40 mg PO BIDAC [facility] Last Admin: 02/27/23 09:09 Dose: 40 mg Ondansetron HCl (Ondansetron 4 Mg/2 Ml Vial) 4 mg IV Q4HP PRN; Protocol PRN Reason: Nausea And Vomiting Last Admin: 02/26/23 18:41 Dose: 4 mg Ondansetron HCl (Ondansetron 4 Mg Odt Tablet) 4 mg SL TIDP PRN PRN Reason: Nausea And Vomiting Last Admin: 02/26/23 12:27 Dose: 4 mg Oxycodone/Acetaminophen (Oxycodone/Apap 5/325mg Tablet) 1 tab PO Q4HP PRN; Protocol PRN Reason: Per Pain Protocol Last Admin: 02/26/23 20:29 Dose: 1 tab Dextroamphetamine- Amphetamine 20 Mg Capsule,Extended Release 1 dose PO QAM [facility] Last Admin: 02/27/23 09:10 Dose: Not Given Rimegepant [Nurtec Odt] 75 Mg Tablet, Disintegrating 1 dose PO DAILY [facility] Last Admin: 02/27/23 09:10 Dose: Not Given Promethazine HCl (Promethazine 25 Mg/Ml Vial) 12.5 mg IV Q4-6HP PRN PRN Reason: Nausea And Vomiting, Last Admin: 02/26/23 20:30 Dose: 12.5 mg Senna (Sennosides 1 Tablet) 2 tab PO HSP PRN PRN Reason: Constipation Simethicone (Simethicone 80 Mg Tab.Chew) 160 mg CHEWED QIDP PRN PRN Reason: Abdominal Distention Last Admin: 02/26/23 20:24 Dose: 160 mg Sodium Chloride (0.9 % Sodium Chloride 10 Ml Syringe) 10 ml IV Q8 [facility] Last Admin: 02/27/23 05:20 Dose: 10 ml Sodium Chloride (Sodium Chloride 1 Gm Tablet) 1 gm PO TID [facility] Last Admin: 02/27/23 09:09 Dose: 1 gm Spironolactone (Spironolactone 25 Mg Tablet) 25 mg PO HS [facility] Last Admin: 02/26/23 20:39 Dose: Not Given Spironolactone (Spironolactone 25 Mg Tablet) 25 mg PO DAILY [facility] Last Admin: 02/27/23 09:10 Dose: 25 mg Temazepam (Temazepam 15 Mg Capsule) 45 mg PO [facility] Last Admin: 02/26/23 20:24 Dose: 45 mg A/P Time Spent With Patient Time: Total time spent is greater than 50% in coordination of care (as documented) at patient's floor/unit and/or counseling patient:
[2023-02-27] MEDS: AZITHROMYCIN 500 MG in DEXTROSE 5% IN WATER 250 ML IV SCH (10:49)
[2023-02-27] MEDS: amLODIPine 5 MG TABLET PO SCH (10:56)
[2023-02-27] MEDS ORDERED: PROMETHAZINE 25 MG TABLET PO PRN (13:43)
[2023-02-27] MEDS ORDERED: FUROSEMIDE 40 MG/4 ML VIAL IV ONE (13:54)
--- NOTE | 2023-02-27 13:55 | Internal Med Progress Note ---
SUBJECTIVE Subjective Patient information: Note initiated : 02/27/23 at 1:43 pm Service Date, if different from initiated Date: [] Patient: Grace Unger 52 y/o F admitted on 02/23/23 for Shortness of Breath. Chief Complaint: [] Interval history: History of Present Illness Patient is a 52 years old female with history of COPD/asthma, current smoker, tobacco use disorder, hypertension, chronic hyponatremia, GERD, fibromyalgia, migraine headaches presented with shortness of breath and right sided thoracic wall pain for the past 2 days. Patient has remote history of spontaneous pneumothorax x3 which occurred on the left side. Patient does have a family history of spontaneous pneumothorax in close relatives. Patient also reported that she has history of pleurisy and it does feel similar. Pain gets worse with movement. Patient reported that she has been feeling more short of breath over the past 2-month and has increased use of her short acting inhaler. She is on monoclonal antibody galcenanezumab for her migraine headache. At home she takes albuterol, budesonide-formoterol for COPD. Home medications also include spironolactone. Her shortness of breath has been progressively getting worse, chest pain started about a week ago and initially it was somewhat sporadic and then over the past few days it has become persistent. Patient was evaluated in ER on 02/21. At that time chest x-ray, D-dimer and labs were unremarkable. She was sent home with pain medication. Patient reports no significant cardiac history. Patient reports smoking no illicit substances or using any illicit substances otherwise. On presentation patient was in respiratory distress with tachypnea of 27, tachycardia pulse rate 101, she was placed on oxygen mask 5 L with sats 90%. CBC showed WBC of 17.5 thousand, she appears to have some chronic leukocytosis. Hemoglobin 10.3 which is close to her baseline. VBG with PCO2 39, PO2 24, HCO3 16, lactic acid elevated at 4.2. Hyponatremia with sodium of 118, potassium 4.6, creatinine 0.9, glucose 219. Troponin 0.04, elevated proBNP of 3458 high elevated from 176 in October 04. EKG showed sinus tachycardia, heart rate 101 bpm, no acute ST-T wave changes. CTA chest showed diffuse groundglass infiltrates involving both lungs, moderate underlying centrilobular emphysematous changes. There are innumerable small cyst within the infiltrate which could be secondary to emphysema. A new 6 mm nodule developed in the medial segment right middle lobe. There is no effusion. Heart appears normal. Rapid Patricia test negative for influenza and COVID. 02/24. Patient still complaining of significant pleuritic chest pain particularly when she coughs. Sputum is grayish in color which has been sent for culture. Her respiratory reserves are poor. White cell count has improved to 14.5 from 17,000. Sodium improved to 127. K 4.6 down from 5.5 yesterday. Later this afternoon NaCl infusion will be discontinued. Troponin minimally elevated. 2D echocardiogram with normal EF 55-60%, no regional wall motion abnormality, mild tricuspid regurgitation. 02/25 overnight patient was on BiPAP for respiratory distress. This morning she is on 11L O2, she desats easily on minimal ambulation. Leukocytosis is 22,000 likely secondary to steroids, Pro-Fidel down to 1.5 from 5.9. Serum sodium improved to 129. Will give sodium tablets, on fluid restriction. Sputum culture with oral contamination and no culture was done. Respiratory viral panel has been negative. 02/26. Patient used BiPAP for comfort overnight, this morning she is on oxy mask 7 L oxygen and feeling improved, WBC 20,000, hemoglobin 8.8. Sputum culture with oral contamination and was not processed 02/27. Overnight patient used BiPAP as she feels this will help her recover faster. CT scan on 02/26 showed stable diffuse groundglass opacities throughout both lungs. Patient is subjectively feeling better, she is on 6 L nasal cannula oxygen now this morning. Leukocytosis of 17,000 down from 20,000. We will wean her off IV Solu-Medrol. Her procalcitonin has also been trending low from 6 on admission to 1.5 couple days ago. 02/28 Review of Systems: denies headache/fever/chills/nausea/vomiting/chest or abdominal pain/cough/dyspnea/diarrhea. Otherwise see above. PHYSICAL EXAM General: Alert, Awake, No acute Distress Eyes/N/T: EOMI, no scleral icterus, Head/Neck: neck supple, full ROM, CV: RRR, No murmurs, Pulm: mild rales b/l, no wheezing, no respiratory distress Abd: soft, nontender, +BS x4 Ext: no clubbing/cyanosis/edema, nontender Neuro: Alert, no focal deficits, moves all extremities, , sensations intact b/l upper/lower Psychiatric: Skin: warm/dry, normal color Constitutional Vitals: Vital Signs Temp Pulse Resp BP Pulse Ox O2 Del Method O2 Flow Rate 97.6 F 85 25 H 100/88 96 Nasal Cannula 4.5 02/27/23 12:24 02/27/23 12:24 02/27/23 12:24 02/27/23 12:00 02/27/23 12:24 02/27/23 12:00 02/27/23 12:00 Period Temp Pulse Resp BP Sys/Caban Pulse Ox O2 Del Method O2 Flow Rate Last 24 Hr 96.4 F-98.4 F 76-107 15-33 100-187/78-105 81-100 BiPAP-Room Air 4-40 Intake and Output 02/27/23 02/27/23 02/27/23 03:59 11:59 19:59 Intake Total 360 1450 250 Output Total 201 1852 Balance 159 -402 250 Weight 70.851 kg 70.851 kg Patient Weight 02/28/23 03:59 Weight 70.851 kg Intake & Output: Intake & Output 02/27/23 02/27/23 02/27/23 03:59 11:59 19:59 Intake Total 360 1450 250 Output Total 201 1852 Balance 159 -402 250 Weight 70.851 kg 70.851 kg Intake: IV 250 Zithromax 500 mg In Dextrose 5% 250 in Water 250 ml @ 250 mls/hr IV Q24H [facility] Rx#:[id number] Oral 360 1450 Output: Void Amount 200 1850 # of times incontinent of urine 1 2 Other: Meal Breakfast Percent of Meal Consumed 100% Feeding Ability Assist with Tray Set Up Urine Appearance Clear Clear Urine Color Yellow Yellow Urine Odor Normal # Bowel Movements 0 OBJ DATA Labs 02/27/23 05:38 02/27/23 05:38 Labs: Abnormal Lab Results 02/27/23 02/27/23 02/26/23 05:38 05:38 05:35 WBC 17.4 H RBC 3.24 L Hgb 9.7 L Hct 29.6 L RDW 16.6 H Immature Gran % (Auto) 4.0 H Neut % (Auto) 88.8 H Lymph % (Auto) 4.0 L Lymph # (Auto) 0.69 L Immature Gran # 0.70 H Absolute Neutrophils 15.44 H Sodium Chloride Carbon Dioxide Creatinine 0.5 L Glucose 126 H 150 H Calcium 8.5 L 8.2 L AST Procalcitonin 02/26/23 02/25/23 02/25/23 05:35 05:18 05:18 WBC 20.8 H RBC 2.91 L Hgb 8.8 L Hct 27.5 L RDW 17.2 H Immature Gran % (Auto) 4.3 H Neut % (Auto) 89.7 H Lymph % (Auto) 3.6 L Lymph # (Auto) 0.76 L Immature Gran # 0.89 H Absolute Neutrophils 18.67 H Sodium 129 L Chloride Carbon Dioxide 20 L Creatinine 0.5 L Glucose 146 H Calcium 8.5 L AST Procalcitonin 1.58 H 02/25/23 02/24/23 05:18 16:33 WBC 22.0 H RBC 3.07 L Hgb 9.3 L Hct 29.4 L RDW 17.1 H Immature Gran % (Auto) 2.4 H Neut % (Auto) 91.8 H Lymph % (Auto) 3.3 L Lymph # (Auto) 0.72 L Immature Gran # 0.53 H Absolute Neutrophils 20.17 H Sodium 129 L Chloride 95 L Carbon Dioxide 21 L Creatinine 0.5 L Glucose 146 H Calcium 8.5 L AST 33 H Procalcitonin Meds: Medications Acetaminophen (Acetaminophen 325 Mg Tablet) 650 mg PO Q6HP PRN; Protocol PRN Reason: Per Pain Protocol/Fever > 101 Last Admin: 02/25/23 20:41 Dose: 650 mg Albuterol Sulfate (Albuterol Sulfate 2.5 Mg/3 Ml Nebulizer) 2.5 mg NEB Q6HRT [facility] Last Admin: 02/27/23 06:55 Dose: 2.5 mg Amitriptyline HCl (Amitriptyline 25 Mg Tablet) 75 mg PO QHS [facility] Last Admin: 02/26/23 20:23 Dose: 75 mg Amitriptyline HCl (Amitriptyline 10 Mg Tablet) 10 mg PO HS [facility] Last Admin: 02/26/23 20:24 Dose: 10 mg Amlodipine Besylate (Amlodipine 5 Mg Tablet) 5 mg PO DAILY [facility] Last Admin: 02/27/23 10:56 Dose: 5 mg Benzonatate (Benzonatate 100 Mg Capsule) 200 mg PO TID [facility] Last Admin: 02/27/23 09:08 Dose: 200 mg Budesonide (Budesonide 0.5 Mg/2 Ml Ampul.Neb) 0.5 mg NEB Q12 [facility] Last Admin: 02/27/23 07:19 Dose: 0.5 mg Ceftriaxone Sodium (Ceftriaxone 1 Gm Vial) 1 gm IV Q24H [facility] Last Admin: 02/27/23 09:10 Dose: 1 gm Cyclobenzaprine HCl (Cyclobenzaprine 10 Mg Tablet) 10 mg PO HS [facility] Last Admin: 02/26/23 20:24 Dose: 10 mg Docusate Sodium (Docusate Sodium 100 Mg Capsule) 100 mg PO BID [facility] Last Admin: 02/27/23 09:09 Dose: 100 mg Enoxaparin Sodium (Enoxaparin 40 Mg/0.4 Ml Syringe) 40 mg SQ DAILY [facility] Last Admin: 02/27/23 09:08 Dose: 40 mg Estradiol (Estradiol 1 Mg Tablet) 1 mg PO DAILY [facility] Last Admin: 02/27/23 09:09 Dose: 1 mg Guaifenesin/Codeine Phosphate (Guaifenesin/Codeine 10 Ml Udc) 10 ml PO Q4HP PRN PRN Reason: Cough Last Admin: 02/27/23 04:32 Dose: 10 ml Hydralazine HCl (Hydralazine 20 Mg/Ml Vial) 10 mg IV Q4-6HP PRN PRN Reason: Hypertension Last Admin: 02/27/23 04:11 Dose: 10 mg Hydromorphone HCl (Hydromorphone 0.5 Mg/0.5 Ml Syringe) 0.5 mg IV Q6H PRN; Protocol PRN Reason: Per Pain Protocol Sodium Chloride (Sodium Chloride 0.9%) 1,000 mls @ 50 mls/hr IV .Q20H [facility] Last Admin: 02/27/23 05:16 Dose: Not Given Labetalol HCl (Labetalol 5 Mg/Ml Ml) 10 mg IV Q2H PRN PRN Reason: Hypertension Last Admin: 02/27/23 06:00 Dose: 10 mg Lactulose (Lactulose 20 Gm/30 Ml Oral.Antonia) 10 gm PO DAILYP PRN PRN Reason: Constipation Lidocaine (Lidocaine Patch) 1 patch TOPICAL DAILY@1000 [facility] Last Admin: 02/26/23 22:24 Dose: 1 patch Losartan Potassium (Losartan 50 Mg Tablet) 100 mg PO DAILY [facility] Last Admin: 02/27/23 09:09 Dose: 100 mg Methylprednisolone Sodium Succinate (Methylprednisolone Sod Succ 40 Mg/Ml Vial) 40 mg IV Q12H [facility] Omeprazole (Omeprazole 20 Mg Capsule) 40 mg PO BIDAC [facility] Last Admin: 02/27/23 09:09 Dose: 40 mg Ondansetron HCl (Ondansetron 4 Mg/2 Ml Vial) 4 mg IV Q4HP PRN; Protocol PRN Reason: Nausea And Vomiting Last Admin: 02/26/23 18:41 Dose: 4 mg Ondansetron HCl (Ondansetron 4 Mg Odt Tablet) 4 mg SL TIDP PRN PRN Reason: Nausea And Vomiting Last Admin: 02/26/23 12:27 Dose: 4 mg Oxycodone/Acetaminophen (Oxycodone/Apap 5/325mg Tablet) 1 tab PO Q4HP PRN; Protocol PRN Reason: Per Pain Protocol Last Admin: 02/26/23 20:29 Dose: 1 tab Dextroamphetamine- Amphetamine 20 Mg Capsule,Extended Release 1 dose PO QAM [facility] Last Admin: 02/27/23 09:10 Dose: Not Given Rimegepant [Nurtec Odt] 75 Mg Tablet, Disintegrating 1 dose PO DAILY [facility] Last Admin: 02/27/23 09:10 Dose: Not Given Promethazine HCl (Promethazine 25 Mg/Ml Vial) 12.5 mg IV Q4-6HP PRN PRN Reason: Nausea And Vomiting, Last Admin: 02/26/23 20:30 Dose: 12.5 mg Senna (Sennosides 1 Tablet) 2 tab PO HSP PRN PRN Reason: Constipation Simethicone (Simethicone 80 Mg Tab.Chew) 160 mg CHEWED QIDP PRN PRN Reason: Abdominal Distention Last Admin: 02/26/23 20:24 Dose: 160 mg Sodium Chloride (0.9 % Sodium Chloride 10 Ml Syringe) 10 ml IV Q8 [facility] Last Admin: 02/27/23 05:20 Dose: 10 ml Sodium Chloride (Sodium Chloride 1 Gm Tablet) 1 gm PO TID [facility] Last Admin: 02/27/23 09:09 Dose: 1 gm Spironolactone (Spironolactone 25 Mg Tablet) 25 mg PO DAILY [facility] Last Admin: 02/27/23 09:10 Dose: 25 mg Temazepam (Temazepam 15 Mg Capsule) 45 mg PO HS [facility] Last Admin: 02/26/23 20:24 Dose: 45 mg A/P Narrative A/P Narrative: Assessment and plan *Sepsis: 2/2 PNA -Patient presented with tachypnea of 27, tachycardia pulse rate 101, leukocytosis and suspected source *Atypical pneumonia: -CT scan with diffuse ground-glass infiltrate involving both lungs. No evidence of PE -Procalcitonin 6.6 -Dx broad including atypical bacterial or viral pna, noninfectious inflammatory, autoimmune pneumonitis -Sputum culture with oral contamination was not processed -myco pending, covid/flu/rsv/rvp neg -Procalcitonin and leukocytosis trending down -Antitussives, cough suppressant, pain control for pleuritic chest pain -Repeat CT chest on 02/26 with diffuse bilateral groundglass infiltrate. -Continue ceftriaxone and azithromycin *COPD exacerbation: -Patient with bilateral wheezing, continues to smoke -Wean off IV Solu-Medrol, DuoNebs, budesonide, pulmonary toileting *Acute hypoxic respiratory failure with diffuse bilateral groundglass opacities -Secondary to above. -on 4-6L NC *Tobacco use disorder -Over [id number] history of smoking and continues to smoke up to half a pack a day. -Smoke cessation counseling >3 minutes -Nicotine patch offered however patient refused *Hyponatremia, acute on chronic: -Patient admits to drinking at least 80 ounces of plain water every day, C ounseled on avoiding over drinking of free water. -Plain water restriction to 8330-9544 cc/day -Serum sodium 134 on sodium tablet 1 g 3 times daily *Mild troponin elevation, will likely demand mediated -Likely secondary to stress and demand. -Troponin minimally elevated to 0.06, 0.04 -Monitor on telemetry -echocardiogram no regional wall motion abnormality *Chronic anemia: Stable *Chronic Leukocytosis: -check diff *Hypertension: -Initially hypotensive, now elevated blood pressure. -Start amlodipine 5 mg daily, continue losartan 100 mg daily -cont home aldactone *Migraine headaches -Continue home medications *GERD: -Continue PPI *ADHD/PTSD/borderline personality disorder: -Continue Adderall home dose *ppx: Lovenox/home PPI CODE STATUS: Full code Time Spent With Patient Time: Total time spent is greater than 50% in coordination of care (as documented) at patient's floor/unit and/or counseling patient:
[2023-02-27] MEDS: LIDOCAINE PATCH TOPICAL SCH (15:30)
[2023-02-27] MEDS: ACETAMINOPHEN 325 MG TABLET PO PRN (19:23)
[2023-02-27] MEDS: AMITRIPTYLINE 10 MG TABLET PO SCH (21:30)
[2023-02-27] MEDS: AMITRIPTYLINE 25 MG TABLET PO SCH (21:30)
[2023-02-27] MEDS: TEMAZEPAM 15 MG CAPSULE PO SCH (21:31)
[2023-02-27] MEDS: CYCLOBENZAPRINE 10 MG TABLET PO SCH (21:31)
[2023-02-27] MEDS: ONDANSETRON 4 MG/2 ML VIAL IV PRN (22:38)
[2023-02-28] MEDS: 0.9 % SODIUM CHLORIDE 1,000 ML IV SCH (00:29)
[2023-02-28] MEDS: ALBUTEROL SULFATE 2.5 MG/3 ML NEBULIZER NEB SCH ×4 (00:29→19:45)
[2023-02-28] MEDS: 0.9 % SODIUM CHLORIDE 10 ML SYRINGE IV SCH ×4 (05:46→21:03)
[2023-02-28 06:26] LABS: Hematocrit 29.8 % (34.1-44.9); Hemoglobin 9.7 g/dL (11.2-15.7); Mean Cell Volume 89.8 fL (80.0-100.0); Mean Corpuscular HGB Conc 32.6 g/dL (31.0-36.0); Mean Platelet Volume 8.9 fL (8.8-12.5); Platelet Count 382 K/mcL (140-440); RBC 3.32 M/mcL (3.59-5.38); Red Cell Distribution Width 16.2 % (11.5-14.5); WBC 13.1 K/mcL (4.5-11.0)
[2023-02-28] MEDS: BUDESONIDE 0.5 MG/2 ML AMPUL.NEB NEB SCH ×2 (06:50→19:45)
[2023-02-28 06:55] LABS: ALT/SGPT 18 U/L (<40); AST/SGOT 15 U/L (<32); Albumin 3.7 gm/dL (3.2-5.2); Albumin/Globulin Ratio 1.6 (1.0-2.3); Alkaline Phosphatase 77 U/L (39-117); Bilirubin,Direct < 0.2 mg/dL (0-0.3); Bilirubin,Total 0.2 mg/dL (0.1-1.0); Blood Urea Nitrogen 10 mg/dL (6-20); Calcium 8.5 mg/dL (8.6-10.4); Carbon Dioxide 27 mmol/L (22-30); Chloride 97 mmol/L (96-108); Globulin 2.3 gm/dL (2.2-3.7); Glomerular Filtration Rate 110; Glucose 159 mg/dL (70-105); Lactate Dehydrogenase 518 U/L (135-225); Triglycerides 66 mg/dL (<150); Uric Acid 1.6 mg/dL (2.5-8.0)
[2023-02-28 06:56] LABS: Erythrocyte Sedimentation Rate 20 mm/hr (0-30)
[2023-02-28] MEDS: OMEPRAZOLE 20 MG CAPSULE PO SCH ×2 (07:40→16:04)
[2023-02-28] MEDS ORDERED: FUROSEMIDE 40 MG/4 ML VIAL IV ONE (07:52)
--- NOTE | 2023-02-28 07:53 | Internal Med Progress Note ---
SUBJECTIVE Subjective Patient information: Note initiated : 02/28/23 at 7:50 am Service Date, if different from initiated Date: [] Patient: Grace Unger 52 y/o F admitted on 02/23/23 for Shortness of Breath. Chief Complaint: [] Interval history: History of Present Illness Patient is a 52 years old female with history of COPD/asthma, current smoker, tobacco use disorder, hypertension, chronic hyponatremia, GERD, fibromyalgia, migraine headaches presented with shortness of breath and right sided thoracic wall pain for the past 2 days. Patient has remote history of spontaneous pneumothorax x3 which occurred on the left side. Patient does have a family history of spontaneous pneumothorax in close relatives. Patient also reported that she has history of pleurisy and it does feel similar. Pain gets worse with movement. Patient reported that she has been feeling more short of breath over the past 2-month and has increased use of her short acting inhaler. She is on monoclonal antibody galcenanezumab for her migraine headache. At home she takes albuterol, budesonide-formoterol for COPD. Home medications also include spironolactone. Her shortness of breath has been progressively getting worse, chest pain started about a week ago and initially it was somewhat sporadic and then over the past few days it has become persistent. Patient was evaluated in ER on 02/21. At that time chest x-ray, D-dimer and labs were unremarkable. She was sent home with pain medication. Patient reports no significant cardiac history. Patient reports smoking no illicit substances or using any illicit substances otherwise. On presentation patient was in respiratory distress with tachypnea of 27, tachycardia pulse rate 101, she was placed on oxygen mask 5 L with sats 90%. CBC showed WBC of 17.5 thousand, she appears to have some chronic leukocytosis. Hemoglobin 10.3 which is close to her baseline. VBG with PCO2 39, PO2 24, HCO3 16, lactic acid elevated at 4.2. Hyponatremia with sodium of 118, potassium 4.6, creatinine 0.9, glucose 219. Troponin 0.04, elevated proBNP of 3458 high elevated from 176 in October 04. EKG showed sinus tachycardia, heart rate 101 bpm, no acute ST-T wave changes. CTA chest showed diffuse groundglass infiltrates involving both lungs, moderate underlying centrilobular emphysematous changes. There are innumerable small cyst within the infiltrate which could be secondary to emphysema. A new 6 mm nodule developed in the medial segment right middle lobe. There is no effusion. Heart appears normal. Rapid Patricia test negative for influenza and COVID. 02/24. Patient still complaining of significant pleuritic chest pain particularly when she coughs. Sputum is grayish in color which has been sent for culture. Her respiratory reserves are poor. White cell count has improved to 14.5 from 17,000. Sodium improved to 127. K 4.6 down from 5.5 yesterday. Later this afternoon NaCl infusion will be discontinued. Troponin minimally elevated. 2D echocardiogram with normal EF 55-60%, no regional wall motion abnormality, mild tricuspid regurgitation. 02/25 overnight patient was on BiPAP for respiratory distress. This morning she is on 11L O2, she desats easily on minimal ambulation. Leukocytosis is 22,000 likely secondary to steroids, Pro-Fidel down to 1.5 from 5.9. Serum sodium improved to 129. Will give sodium tablets, on fluid restriction. Sputum culture with oral contamination and no culture was done. Respiratory viral panel has been negative. 02/26. Patient used BiPAP for comfort overnight, this morning she is on oxy mask 7 L oxygen and feeling improved, WBC 20,000, hemoglobin 8.8. Sputum culture with oral contamination and was not processed 02/27. Overnight patient used BiPAP as she feels this will help her recover faster. CT scan on 02/26 showed stable diffuse groundglass opacities throughout both lungs. Patient is subjectively feeling better, she is on 6 L nasal cannula oxygen now this morning. Leukocytosis of 17,000 down from 20,000. We will wean her off IV Solu-Medrol. Her procalcitonin has also been trending low from 6 on admission to 1.5 couple days ago. 02/28 Patient feels like she is finally breathing better. Does have cough which is producing more clear Sputum. Good diuresis with Lasix yesterday. Patient does complain of headache and some nausea but no vomiting. Does complain of Anxiety and does state that she drinks four 16 ounces beers daily. Patient still smoking. Review of Systems: denies headache/fever/chills/nausea/vomiting/chest or abdominal pain/cough/dyspnea/diarrhea. Otherwise see above. PHYSICAL EXAM General: Alert, Awake, No acute Distress Eyes/N/T: EOMI, no scleral icterus, Head/Neck: neck supple, full ROM, CV: RRR, No murmurs, Pulm: clearing lungs sounds b/l, no wheezing, no respiratory distress Abd: soft, nontender, +BS x4 Ext: no clubbing/cyanosis/edema, nontender Neuro: Alert, no focal deficits, moves all extremities, , sensations intact b/l upper/lower Psychiatric: Skin: warm/dry, normal color Constitutional Vitals: Vital Signs Temp Pulse Resp BP Pulse Ox O2 Del Method O2 Flow Rate 97.0 F 90 20 147/83 92 Nasal Cannula 2.5 02/28/23 04:01 02/28/23 06:50 02/28/23 06:50 02/28/23 06:01 02/28/23 06:50 02/28/23 06:50 02/28/23 06:50 Period Temp Pulse Resp BP Sys/Caban Pulse Ox O2 Del Method O2 Flow Rate Last 24 Hr 96.4 F-99.1 F 68-95 11-26 100-179/73-94 82-97 Nasal Cannula- Room Air 2-5 Intake and Output 02/27/23 02/28/23 02/28/23 19:59 03:59 11:59 Intake Total 1030 Output Total 1202 450 1 Balance -172 -450 -1 Weight 70.851 kg 67.67 kg Intake & Output: Intake & Output 02/27/23 02/28/23 02/28/23 19:59 03:59 11:59 Intake Total 1030 Output Total 1202 450 1 Balance -172 -450 -1 Weight 70.851 kg 67.67 kg Intake: IV 250 Zithromax 500 mg In Dextrose 5% 250 in Water 250 ml @ 250 mls/hr IV Q24H [facility] Rx#:[id number] Oral 780 Output: Urine Catheter Amount 1200 Void Amount 450 # of times incontinent of urine 2 1 Other: Meal Dinner Percent of Meal Consumed 25% Urine Appearance Clear Clear Clear Urine Color Pale Bright Yellow Pale OBJ DATA Labs 02/28/23 05:40 02/28/23 05:40 Labs: Abnormal Lab Results 02/28/23 02/28/23 02/27/23 05:40 05:40 05:38 WBC 13.1 H RBC 3.32 L Hgb 9.7 L Hct 29.8 L RDW 16.2 H Immature Gran % (Auto) Neut % (Auto) Lymph % (Auto) Lymph # (Auto) Immature Gran # Absolute Neutrophils Creatinine 0.5 L Glucose 159 H Uric Acid 1.6 L 1.5 L Calcium 8.5 L GGT 50 H Lactate Dehydrogenase 518 H 02/27/23 02/27/23 02/26/23 05:38 05:38 05:35 WBC 17.4 H RBC 3.24 L Hgb 9.7 L Hct 29.6 L RDW 16.6 H Immature Gran % (Auto) 4.0 H Neut % (Auto) 88.8 H Lymph % (Auto) 4.0 L Lymph # (Auto) 0.69 L Immature Gran # 0.70 H Absolute Neutrophils 15.44 H Creatinine 0.5 L Glucose 126 H 150 H Uric Acid Calcium 8.5 L 8.2 L GGT Lactate Dehydrogenase 02/26/23 05:35 WBC 20.8 H RBC 2.91 L Hgb 8.8 L Hct 27.5 L RDW 17.2 H Immature Gran % (Auto) 4.3 H Neut % (Auto) 89.7 H Lymph % (Auto) 3.6 L Lymph # (Auto) 0.76 L Immature Gran # 0.89 H Absolute Neutrophils 18.67 H Creatinine Glucose Uric Acid Calcium GGT Lactate Dehydrogenase Meds: Medications Acetaminophen (Acetaminophen 325 Mg Tablet) 650 mg PO Q6HP PRN; Protocol PRN Reason: Per Pain Protocol/Fever > 101 Last Admin: 02/27/23 19:23 Dose: 650 mg Albuterol Sulfate (Albuterol Sulfate 2.5 Mg/3 Ml Nebulizer) 2.5 mg NEB Q6HRT SC H Last Admin: 02/28/23 06:50 Dose: 2.5 mg Amitriptyline HCl (Amitriptyline 25 Mg Tablet) 75 mg PO QHS [facility] Last Admin: 02/27/23 21:30 Dose: 75 mg Amitriptyline HCl (Amitriptyline 10 Mg Tablet) 10 mg PO HS [facility] Last Admin: 02/27/23 21:30 Dose: 10 mg Amlodipine Besylate (Amlodipine 5 Mg Tablet) 5 mg PO DAILY [facility] Last Admin: 02/27/23 10:56 Dose: 5 mg Benzonatate (Benzonatate 100 Mg Capsule) 200 mg PO TID [facility] Last Admin: 02/27/23 21:31 Dose: 200 mg Budesonide (Budesonide 0.5 Mg/2 Ml Ampul.Neb) 0.5 mg NEB Q12 [facility] Last Admin: 02/28/23 06:50 Dose: 0.5 mg Ceftriaxone Sodium (Ceftriaxone 1 Gm Vial) 1 gm IV Q24H [facility] Last Admin: 02/27/23 09:10 Dose: 1 gm Cyclobenzaprine HCl (Cyclobenzaprine 10 Mg Tablet) 10 mg PO HS [facility] Last Admin: 02/27/23 21:31 Dose: 10 mg Docusate Sodium (Docusate Sodium 100 Mg Capsule) 100 mg PO BID [facility] Last Admin: 02/27/23 21:31 Dose: 100 mg Enoxaparin Sodium (Enoxaparin 40 Mg/0.4 Ml Syringe) 40 mg SQ DAILY [facility] Last Admin: 02/27/23 09:08 Dose: 40 mg Estradiol (Estradiol 1 Mg Tablet) 1 mg PO DAILY [facility] Last Admin: 02/27/23 09:09 Dose: 1 mg Guaifenesin/Codeine Phosphate (Guaifenesin/Codeine 10 Ml Udc) 10 ml PO Q4HP PRN PRN Reason: Cough Last Admin: 02/27/23 04:32 Dose: 10 ml Hydralazine HCl (Hydralazine 20 Mg/Ml Vial) 10 mg IV Q4-6HP PRN PRN Reason: Hypertension Last Admin: 02/27/23 04:11 Dose: 10 mg Hydromorphone HCl (Hydromorphone 0.5 Mg/0.5 Ml Syringe) 0.5 mg IV Q6H PRN; Protocol PRN Reason: Per Pain Protocol Sodium Chloride (Sodium Chloride 0.9%) 1,000 mls @ 50 mls/hr IV .Q20H [facility] Last Admin: 02/28/23 00:29 Dose: Not Given Labetalol HCl (Labetalol 5 Mg/Ml Ml) 10 mg IV Q2H PRN PRN Reason: Hypertension Last Admin: 02/27/23 06:00 Dose: 10 mg Lactulose (Lactulose 20 Gm/30 Ml Oral.Antonia) 10 gm PO DAILYP PRN PRN Reason: Constipation Lidocaine (Lidocaine Patch) 1 patch TOPICAL DAILY@1000 [facility] Last Admin: 02/27/23 15:30 Dose: 1 patch Losartan Potassium (Losartan 50 Mg Tablet) 100 mg PO DAILY [facility] Last Admin: 02/27/23 09:09 Dose: 100 mg Methylprednisolone Sodium Succinate (Methylprednisolone Sod Succ 40 Mg/Ml Vial) 40 mg IV Q12H [facility] Last Admin: 02/27/23 21:34 Dose: 40 mg Omeprazole (Omeprazole 20 Mg Capsule) 40 mg PO BIDAC [facility] Last Admin: 02/28/23 07:40 Dose: 40 mg Ondansetron HCl (Ondansetron 4 Mg/2 Ml Vial) 4 mg IV Q4HP PRN; Protocol PRN Reason: Nausea And Vomiting Last Admin: 02/27/23 22:38 Dose: 4 mg Ondansetron HCl (Ondansetron 4 Mg Odt Tablet) 4 mg SL TIDP PRN PRN Reason: Nausea And Vomiting Last Admin: 02/26/23 12:27 Dose: 4 mg Oxycodone/Acetaminophen (Oxycodone/Apap 5/325mg Tablet) 1 tab PO Q4HP PRN; Protocol PRN Reason: Per Pain Protocol Last Admin: 02/26/23 20:29 Dose: 1 tab Dextroamphetamine- Amphetamine 20 Mg Capsule,Extended Release 1 dose PO QAM [facility] Last Admin: 02/27/23 09:10 Dose: Not Given Rimegepant [Nurtec Odt] 75 Mg Tablet, Disintegrating 1 dose PO DAILY [facility] Last Admin: 02/27/23 09:10 Dose: Not Given Promethazine HCl (Promethazine 25 Mg/Ml Vial) 12.5 mg IV Q4-6HP PRN PRN Reason: Nausea And Vomiting, Last Admin: 02/26/23 20:30 Dose: 12.5 mg Promethazine HCl (Promethazine 25 Mg Tablet) 25 mg PO TID PRN PRN Reason: nausea and vomiting Senna (Sennosides 1 Tablet) 2 tab PO HSP PRN PRN Reason: Constipation Last Admin: 02/27/23 19:23 Dose: 2 tab Simethicone (Simethicone 80 Mg Tab.Chew) 160 mg CHEWED QIDP PRN PRN Reason: Abdominal Distention Last Admin: 02/26/23 20:24 Dose: 160 mg Sodium Chloride (0.9 % Sodium Chloride 10 Ml Syringe) 10 ml IV Q8 [facility] Last Admin: 02/28/23 05:46 Dose: 10 ml Sodium Chloride (Sodium Chloride 1 Gm Tablet) 1 gm PO TID [facility] Last Admin: 02/27/23 21:31 Dose: 1 gm Spironolactone (Spironolactone 25 Mg Tablet) 25 mg PO DAILY [facility] Last Admin: 02/27/23 09:10 Dose: 25 mg Temazepam (Temazepam 15 Mg Capsule) 45 mg PO HS [facility] Last Admin: 02/27/23 21:31 Dose: 45 mg A/P Narrative A/P Narrative: Assessment and plan *Sepsis: 2/2 PNA -Patient presented with tachypnea of 27, tachycardia pulse rate 101, leukocytosis and suspected source *Atypical pneumonia: -CT scan with diffuse ground-glass infiltrate involving both lungs. No evidence of PE -Procalcitonin 6.6 on admit; -Procalcitonin and leukocytosis trending down -Dx broad including atypical bacterial or viral pna, noninfectious inflammatory, autoimmune pneumonitis -Sputum culture with oral contamination was not processed -myco pending, covid/flu/rsv/rvp neg -Antitussives, cough suppressant, pain control for pleuritic chest pain -Repeat CT chest on 02/26 with diffuse bilateral groundglass infiltrate. -Continue ceftriaxone and azithromycin -diuresis and eval clinical status; d/c ivf -f/u cxr in AM *COPD exacerbation: -Patient with bilateral wheezing, continues to smoke -Wean off IV Solu-Medrol, DuoNebs, budesonide, pulmonary toileting *Acute hypoxic respiratory failure with diffuse bilateral groundglass opacities -Secondary to above. -on 2.5-4L NC *Tobacco use disorder: -Over [id number] history of smoking and continues to smoke up to half a pack a day. -Smoke cessation counseling >3 minutes -Nicotine patch offered however patient refused *Hyponatremia, acute on chronic: -Patient admits to drinking at least 80 ounces of plain water every day, Counseled on avoiding over drinking of free water. -Plain water restriction to 1336-4024 cc/day -Serum sodium improved, on sodium tablet 1g tid -suspect beer potomania *Mild troponin elevation, will likely demand mediated -Likely secondary to stress and demand. -Troponin minimally elevated to 0.06, 0.04 -Monitor on telemetry -echocardiogram no regional wall motion abnormality *Chronic anemia: Stable *Chronic Leukocytosis: -check diff, no bandemia *Hypertension: -Initially hypotensive, now elevated blood pressure. -Start amlodipine 5 mg daily, continue losartan 100 mg daily -cont home aldactone *Migraine headaches -Continue home medications *GERD: -Continue PPI *ADHD/PTSD/borderline personality disorder: -Continue Adderall home dose *Alcohol abuse: -CIWA, prn ativen, folate/thiamine *ppx: Lovenox / home PPI CODE STATUS: Full code Time Spent With Patient Time: Total time spent is greater than 50% in coordination of care (as documented) at patient's floor/unit and/or counseling patient: Subsequent: Total time with patient: 50 - 65 Minutes
[2023-02-28] MEDS ORDERED: SPIRONOLACTONE 25 MG TABLET PO ONE (07:54)
[2023-02-28] MEDS: LIDOCAINE PATCH TOPICAL SCH (08:27)
[2023-02-28] MEDS: BENZONATATE 100 MG CAPSULE PO SCH ×3 (08:28→21:02)
[2023-02-28] MEDS: SODIUM CHLORIDE 1 GM TABLET PO SCH ×3 (08:28→21:02)
[2023-02-28] MEDS: ENOXAPARIN 40 MG/0.4 ML SYRINGE SQ SCH (08:28)
[2023-02-28] MEDS: ACETAMINOPHEN 325 MG TABLET PO PRN (08:28)
[2023-02-28] MEDS: ESTRADIOL 1 MG TABLET PO SCH (08:28)
[2023-02-28] MEDS: LOSARTAN 50 MG TABLET PO SCH (08:29)
[2023-02-28] MEDS: DOCUSATE SODIUM 100 MG CAPSULE PO SCH ×2 (08:29→21:01)
[2023-02-28] MEDS: SPIRONOLACTONE 25 MG TABLET PO SCH (08:29)
[2023-02-28] MEDS: amLODIPine 5 MG TABLET PO SCH (08:34)
[2023-02-28] MEDS: methylPREDNISolone SOD SUCC 40 MG/ML VIAL IV SCH (08:34)
[2023-02-28] MEDS: RIMEGEPANT 75 MG PO SCH (08:34)
[2023-02-28] MEDS: cefTRIAXone 1 GM VIAL IV SCH (08:34)
[2023-02-28] MEDS: DEXTROAMPHETAMINE AMPHETAMINE 20 MG PO SCH (08:35)
[2023-02-28 08:36] LABS: Anisocytosis 2+ (None Seen); Band Neutrophils % 4 % (0-10); Hypochromasia 1+ (None Seen); Lymphocytes % 3 % (15-49); Metamyelocytes % 1 %; Monocytes % (Manual) 4 % (1-12); Myelocytes % 4 %; Platelet Estimate NORMAL (Normal); Polychromasia 1+ (None Seen); RBC Morphology ABNORMAL (Normal); Segmented Neutrophils % 84 % (38-78)
[2023-02-28] MEDS ORDERED: LORazepam 2 MG/ML VIAL IV PRN ×2 (08:57→09:02)
[2023-02-28] MEDS: FOLIC ACID 1 MG TABLET PO SCH (11:15)
[2023-02-28] MEDS: THIAMINE 100 MG TABLET PO SCH (11:15)
--- NOTE | 2023-02-28 12:06 | Discharge Summary ---
Discharge Provider Provider IMPORTANT FOLLOW-UP INFORMATION FOR PCP: Patient information: Note initiated : 02/28/23 at 12:04 pm Service Date, if different from initiated Date: [] Patient: Grace Unger 52 y/o F admitted on 02/23/23 for Shortness of Breath. Chief Complaint: [] Date of admission: 02/23/23 16:34 Discharge date: 03/01/23 Primary care physician: Abdifatah Yang Consults: 02/23/23 Consult to Physician [CONS] Stat Comment: Consulting Provider: Adan Silva Reason For Exam: Physician to Consult COURSE Hospital Course Hospital course: History of Present Illness Patient is a 52 years old female with history of COPD/asthma, current smoker, tobacco use disorder, hypertension, chronic hyponatremia, GERD, fibromyalgia, migraine headaches presented with shortness of breath and right sided thoracic wall pain for the past 2 days. Patient has remote history of spontaneous pneumothorax x3 which occurred on the left side. Patient does have a family history of spontaneous pneumothorax in close relatives. Patient also reported that she has history of pleurisy and it does feel similar. Pain gets worse with movement. Patient reported that she has been feeling more short of breath over the past 2-month and has increased use of her short acting inhaler. She is on monoclonal antibody galcenanezumab for her migraine headache. At home she takes albuterol, budesonide-formoterol for COPD. Home medications also include spironolactone. Her shortness of breath has been progressively getting worse, chest pain started about a week ago and initially it was somewhat sporadic and then over the past few days it has become persistent. Patient was evaluated in ER on 02/21. At that time chest x-ray, D-dimer and labs were unremarkable. She was sent home with pain medication. Patient reports no significant cardiac history. Patient reports smoking no illicit substances or using any illicit substances otherwise. On presentation patient was in respiratory distress with tachypnea of 27, tachycardia pulse rate 101, she was placed on oxygen mask 5 L with sats 90%. CBC showed WBC of 17.5 thousand, she appears to have some chronic leukocytosis. Hemoglobin 10.3 which is close to her baseline. VBG with PCO2 39, PO2 24, HCO3 16, lactic acid elevated at 4.2. Hyponatremia with sodium of 118, potassium 4.6, creatinine 0.9, glucose 219. Troponin 0.04, elevated proBNP of 3458 high elevated from 176 in October 04. EKG showed sinus tachycardia, heart rate 101 bpm, no acute ST-T wave changes. CTA chest showed diffuse groundglass infil trates involving both lungs, moderate underlying centrilobular emphysematous changes. There are innumerable small cyst within the infiltrate which could be secondary to emphysema. A new 6 mm nodule developed in the medial segment right middle lobe. There is no effusion. Heart appears normal. Rapid Patricia test negative for influenza and COVID. 02/24. Patient still complaining of significant pleuritic chest pain particularly when she coughs. Sputum is grayish in color which has been sent for culture. Her respiratory reserves are poor. White cell count has improved to 14.5 from 17,000. Sodium improved to 127. K 4.6 down from 5.5 yesterday. Later this afternoon NaCl infusion will be discontinued. Troponin minimally elevated. 2D echocardiogram with normal EF 55-60%, no regional wall motion abnormality, mild tricuspid regurgitation. 02/25 overnight patient was on BiPAP for respiratory distress. This morning she is on 11L O2, she desats easily on minimal ambulation. Leukocytosis is 22,000 likely secondary to steroids, Pro-Fidel down to 1.5 from 5.9. Serum sodium improved to 129. Will give sodium tablets, on fluid restriction. Sputum culture with oral contamination and no culture was done. Respiratory viral panel has been negative. 02/26. Patient used BiPAP for comfort overnight, this morning she is on oxy mask 7 L oxygen and feeling improved, WBC 20,000, hemoglobin 8.8. Sputum culture with oral contamination and was not processed 02/27. Overnight patient used BiPAP as she feels this will help her recover faster. CT scan on 02/26 showed stable diffuse groundglass opacities throughout both lungs. Patient is subjectively feeling better, she is on 6 L nasal cannula oxygen now this morning. Leukocytosis of 17,000 down from 20,000. We will wean her off IV Solu-Medrol. Her procalcitonin has also been trending low from 6 on admission to 1.5 couple days ago. 02/28 Patient feels like she is finally breathing better. Does have cough which is producing more clear Sputum. Good diuresis with Lasix yesterday. Patient does complain of headache and some nausea but no vomiting. Does complain of Anxiety and does state that she drinks four 16 ounces beers daily. Patient still smoking. 03/01 Patient doing well. Only on minimal oxygen. Feeling much better and wanted to go home. RT to qualify for home oxygen. Assessment and plan *Sepsis: 11/15 PNA *Atypical pneumonia: -CT scan with diffuse ground-glass infiltrate involving both lungs. No evidence of PE -Procalcitonin 6.6 on admit -finish abx *COPD exacerbation: -steroid taper *Acute hypoxic respiratory failure with diffuse bilateral groundglass opacities *Tobacco use disorder: -Over [id number] history of smoking and continues to smoke up to half a pack a day. *Hyponatremia, acute on chronic: -possible beer potomania *Mild troponin elevation, will likely demand mediated -Likely secondary to stress and demand. -echocardiogram no regional wall motion abnormality *Chronic anemia: Stable *Chronic Leukocytosis: *Hypertension: *Migraine headaches *GERD: *ADHD/PTSD/borderline personality disorder: *Alcohol abuse: Discharge diagnosis: Sepsis atypical pneumonia COPD exacerbation hypoxia Secondary discharge diagnosis: Hyponatremia demand ischemia chronic anemia leukocytosis hypertension migraines GERD PTSD HD ADHD alcohol abuse Time Spent with Patient Time attestation: Total time spent providing and/or coordinating discharge services: Time spent: Greater than 30 minutes EXAM Constitutional Vitals: Temp Pulse Resp BP Pulse Ox O2 Del Method O2 Flow Rate 97.5 F 95 H 17 140/80 88 L Nasal Cannula 2 02/28/23 08:05 02/28/23 10:01 02/28/23 10:01 02/28/23 10:01 02/28/23 10:01 02/28/23 10:01 02/28/23 10:01 Discharge Data Data Completed and Pending Labs on day of discharge: Labs from last 24 hours 02/28/23 02/28/23 02/27/23 05:40 05:40 05:38 WBC 13.1 H RBC 3.32 L Hgb 9.7 L Hct 29.8 L MCV 89.8 MCH 29.2 MCHC 32.6 RDW 16.2 H Plt Count 382 MPV 8.9 Seg Neutrophils % 84 H Band Neutrophils % 4 Lymphocytes % 3 L Monocytes % (Manual) 4 Metamyelocytes % 1 Myelocytes % 4 Platelet Estimate Normal RBC Morphology Abnormal A Polychromasia 1+ A Hypochromasia 1+ A Anisocytosis 2+ A ESR 20 Sodium 133 Potassium 3.8 Chloride 97 Carbon Dioxide 27 Anion Gap 9.0 BUN 10 Creatinine 0.5 L GFR Calculation 110 Glucose 159 H Uric Acid 1.6 L 1.5 L Calcium 8.5 L Phosphorus 3.0 Magnesium 2.0 Total Bilirubin 0.2 Direct Bilirubin < 0.2 GGT 50 H AST 15 ALT 18 Alkaline Phosphatase 77 Lactate Dehydrogenase 518 H C-Reactive Protein 0.50 Total Protein 6.0 Albumin 3.7 Globulin 2.3 Albumin/Globulin Ratio 1.6 Triglycerides 66 Discharge Plan Patient/Caregiver Discharge Instructions Activity: increase activity as tolerated Diet: Regular Diet Prescriptions: New prednisone 10 mg tablet 40 mg PO QDAY Qty: 1 0RF Rx Instructions: Take 40mg once daily for 2 days then 20mg daily for 2 days then 10mg daily x2 days then 5mg x2 days and stop Continued amitriptyline 25 MG tablet 85 mg PO QHS omeprazole [Prilosec] 40 MG capsule,delayed release(DR/EC) 40 mg PO BID estradiol 0.5 MG tablet 1 mg PO QHS ketorolac 60 MG/2 ML solution 60 mg IM WEEKLY PRN (Reason: Pain) ondansetron HCl [Zofran] 4 MG tablet 4 mg PO TID temazepam [Restoril] 30 MG capsule 45 mg PO HS losartan 100 MG tablet 100 mg DAILY meclizine 12.5 MG tablet 12.5 mg PO BID PRN (Reason: Vertigo) spironolactone 25 MG tablet 25 mg PO DAILY potassium chloride 20 MEQ tablet 40 meq PO QAMCC ibuprofen 200 mg Tablet 800 mg PO TID albuterol sulfate 90 mcg/actuation Hfa Aerosol Inhaler 2 puff INHALATION Q6H PRN (Reason: Shortness Of Breath) budesonide-formoterol 160-4.5 mcg/actuation Hfa Aerosol Inhaler 2 puff INHALATION TID PRN (Reason: Shortness Of Breath) promethazine 25 mg tablet 25 mg PO TID PRN (Reason: nausea and vomiting) Qty: 30 0RF dextroamphetamine-amphetamine 20 mg capsule,extended release 24hr 1 cap PO QAM budesonide-formoterol [Symbicort] 160-4.5 mcg/actuation HFA aerosol inhaler 2 puff INHALATION BID Patient Comments: [NO ORIGINAL SIG] Nurtec ODT 75 mg tablet,disintegrating 75 mg PO DAILY PRN (Reason: Migraines) acetaminophen 325 mg Tablet 650 mg PO TID cyclobenzaprine 10 mg tablet 10 mg PO HS sennosides [senna] 8.6 mg Tablet 8.6 mg PO DAILY PRN (Reason: Constipation) Follow Up Plan Follow up with: Abdifatah Yang DO [Primary Care Provider] - Patient Disposition: Home, Self-Care Prognosis: Fair Overall status at discharge: patient is progressing back to baseline Discharge Orders: Discharge Order (Routine); Ordered 03/01/23 Ordered By: Ramos Louis
[2023-02-28] MEDS ORDERED: FUROSEMIDE 20 MG/2 ML VIAL IV ONE (16:25)
[2023-02-28] MEDS: AMITRIPTYLINE 10 MG TABLET PO SCH (21:01)
[2023-02-28] MEDS: AMITRIPTYLINE 25 MG TABLET PO SCH (21:01)
[2023-02-28] MEDS: TEMAZEPAM 15 MG CAPSULE PO SCH (21:02)
[2023-02-28] MEDS: CYCLOBENZAPRINE 10 MG TABLET PO SCH (21:02)
[2023-03-01] MEDS: ALBUTEROL SULFATE 2.5 MG/3 ML NEBULIZER NEB SCH ×3 (01:02→11:35)
[2023-03-01] MEDS: 0.9 % SODIUM CHLORIDE 10 ML SYRINGE IV SCH (05:57)
[2023-03-01 06:43] LABS: Basophils # (Auto) 0.06 K/mcL (0.00-0.30); Basophils % (Auto) 0.4 % (0.0-2.0); Eosinophils # (Auto) 0.19 K/mcL (0.00-0.70); Eosinophils % (Auto) 1.4 % (0.0-7.0); Hematocrit 32.9 % (34.1-44.9); Hemoglobin 10.7 g/dL (11.2-15.7); Lymphocytes # (Auto) 2.21 K/mcL (1.50-4.80); Mean Cell Volume 88.9 fL (80.0-100.0); Mean Corpuscular HGB Conc 32.5 g/dL (31.0-36.0); Mean Platelet Volume 8.7 fL (8.8-12.5); Monocytes # (Auto) 0.65 K/mcL (0.10-0.90); Monocytes % (Auto) 4.7 % (1.0-12.0); Neutrophils % (Auto) 72.4 % (38.0-78.0); Platelet Count 456 K/mcL (140-440); Red Cell Distribution Width 16.1 % (11.5-14.5); WBC 13.8 K/mcL (4.5-11.0)
[2023-03-01] MEDS: BUDESONIDE 0.5 MG/2 ML AMPUL.NEB NEB SCH ×2 (06:56→06:57)
[2023-03-01] MEDS: OMEPRAZOLE 20 MG CAPSULE PO SCH (07:25)
[2023-03-01 07:35] LABS: Blood Urea Nitrogen 14 mg/dL (6-20); Calcium 8.9 mg/dL (8.6-10.4); Carbon Dioxide 29 mmol/L (22-30); Chloride 94 mmol/L (96-108); Glomerular Filtration Rate 103; Glucose 93 mg/dL (70-105)
[2023-03-01] MEDS ORDERED: predniSONE 20 MG TABLET PO SCH (08:00)
--- NOTE | 2023-03-01 08:09 | Internal Med Progress Note ---
SUBJECTIVE Subjective Patient information: Note initiated : 03/01/23 at 8:01 am Service Date, if different from initiated Date: [] Patient: Grace Unger 52 y/o F admitted on 02/23/23 for Shortness of Breath. Chief Complaint: [] Interval history: History of Present Illness Patient is a 52 years old female with history of COPD/asthma, current smoker, tobacco use disorder, hypertension, chronic hyponatremia, GERD, fibromyalgia, migraine headaches presented with shortness of breath and right sided thoracic wall pain for the past 2 days. Patient has remote history of spontaneous pneumothorax x3 which occurred on the left side. Patient does have a family history of spontaneous pneumothorax in close relatives. Patient also reported that she has history of pleurisy and it does feel similar. Pain gets worse with movement. Patient reported that she has been feeling more short of breath over the past 2-month and has increased use of her short acting inhaler. She is on monoclonal antibody galcenanezumab for her migraine headache. At home she takes albuterol, budesonide-formoterol for COPD. Home medications also include spironolactone. Her shortness of breath has been progressively getting worse, chest pain started about a week ago and initially it was somewhat sporadic and then over the past few days it has become persistent. Patient was evaluated in ER on 02/21. At that time chest x-ray, D-dimer and labs were unremarkable. She was sent home with pain medication. Patient reports no significant cardiac history. Patient reports smoking no illicit substances or using any illicit substances otherwise. On presentation patient was in respiratory distress with tachypnea of 27, tachycardia pulse rate 101, she was placed on oxygen mask 5 L with sats 90%. CBC showed WBC of 17.5 thousand, she appears to have some chronic leukocytosis. Hemoglobin 10.3 which is close to her baseline. VBG with PCO2 39, PO2 24, HCO3 16, lactic acid elevated at 4.2. Hyponatremia with sodium of 118, potassium 4.6, creatinine 0.9, glucose 219. Troponin 0.04, elevated proBNP of 3458 high elevated from 176 in October 04. EKG showed sinus tachycardia, heart rate 101 bpm, no acute ST-T wave changes. CTA chest showed diffuse groundglass infiltrates involving both lungs, moderate underlying centrilobular emphysematous changes. There are innumerable small cyst within the infiltrate which could be secondary to emphysema. A new 6 mm nodule developed in the medial segment right middle lobe. There is no effusion. Heart appears normal. Rapid Patricia test negative for influenza and COVID. 02/24. Patient still complaining of significant pleuritic chest pain particularly when she coughs. Sputum is grayish in color which has been sent for culture. Her respiratory reserves are poor. White cell count has improved to 14.5 from 17,000. Sodium improved to 127. K 4.6 down from 5.5 yesterday. Later this afternoon NaCl infusion will be discontinued. Troponin minimally elevated. 2D echocardiogram with normal EF 55-60%, no regional wall motion abnormality, mild tricuspid regurgitation. 02/25 overnight patient was on BiPAP for respiratory distress. This morning she is on 11L O2, she desats easily on minimal ambulation. Leukocytosis is 22,000 likely secondary to steroids, Pro-Fidel down to 1.5 from 5.9. Serum sodium improved to 129. Will give sodium tablets, on fluid restriction. Sputum culture with oral contamination and no culture was done. Respiratory viral panel has been negative. 02/26. Patient used BiPAP for comfort overnight, this morning she is on oxy mask 7 L oxygen and feeling improved, WBC 20,000, hemoglobin 8.8. Sputum culture with oral contamination and was not processed 02/27. Overnight patient used BiPAP as she feels this will help her recover faster. CT scan on 02/26 showed stable diffuse groundglass opacities throughout both lungs. Patient is subjectively feeling better, she is on 6 L nasal cannula oxygen now this morning. Leukocytosis of 17,000 down from 20,000. We will wean her off IV Solu-Medrol. Her procalcitonin has also been trending low from 6 on admission to 1.5 couple days ago. 02/28 Patient feels like she is finally breathing better. Does have cough which is producing more clear Sputum. Good diuresis with Lasix yesterday. Patient does complain of headache and some nausea but no vomiting. Does complain of Anxiety and does state that she drinks four 16 ounces beers daily. Patient still smoking. 03/01 Patient doing well. Only on minimal oxygen. Feeling much better and wanted to go home. RT to qualify for home oxygen. Constitutional Vitals: Vital Signs Temp Pulse Resp BP Pulse Ox O2 Del Method O2 Flow Rate 97.0 F 88 17 153/88 89 L Nasal Cannula 0.5 03/01/23 07:30 03/01/23 07:30 03/01/23 07:30 03/01/23 06:01 03/01/23 07:31 03/01/23 07:31 03/01/23 07:31 Period Temp Pulse Resp BP Sys/Caban Pulse Ox O2 Del Method O2 Flow Rate Last 24 Hr 96.8 F-97.8 F 72-95 -23 128-163/65-99 76-100 Nasal Cannula- Room Air 0.5-2 Intake and Output 02/28/23 03/01/23 03/01/23 19:59 03:59 11:59 Intake Total 480 450 150 Output Total 800 1500 650 Balance -320 -1050 -500 Weight 67.585 kg Intake & Output: Intake & Output 02/28/23 03/01/23 03/01/23 19:59 03:59 11:59 Intake Total 480 450 150 Output Total 800 1500 650 Balance -320 -1050 -500 Weight 67.585 kg Intake: Oral 480 450 150 Output: Void Amount 800 1500 650 # of times incontinent of urine 0 Other: Meal Dinner Percent of Meal Consumed 50% Feeding Ability Independent Urine Appearance Clear Clear Clear Urine Color Pale Yellow Yellow Urine Odor Normal OBJ DATA Labs 03/01/23 05:26 03/01/23 05:26 Labs: Abnormal Lab Results 03/01/23 03/01/23 02/28/23 05:26 05:26 05:40 WBC 13.8 H RBC Hgb 10.7 L Hct 32.9 L RDW 16.1 H Plt Count 456 H MPV 8.7 L Immature Gran % (Auto) 5.1 H Neut % (Auto) Lymph % (Auto) Lymph # (Auto) Seg Neutrophils % Lymphocytes % Immature Gran # 0.70 H Absolute Neutrophils 9.99 H RBC Morphology Polychromasia Hypochromasia Anisocytosis Chloride 94 L Creatinine 0.5 L Glucose 159 H Uric Acid 1.6 L Calcium 8.5 L GGT 50 H Lactate Dehydrogenase 518 H 02/28/23 02/27/23 02/27/23 05:40 05:38 05:38 WBC 13.1 H RBC 3.32 L Hgb 9.7 L Hct 29.8 L RDW 16.2 H Plt Count MPV Immature Gran % (Auto) Neut % (Auto) Lymph % (Auto) Lymph # (Auto) Seg Neutrophils % 84 H Lymphocytes % 3 L Immature Gran # Absolute Neutrophils RBC Morphology Abnormal A Polychromasia 1+ A Hypochromasia 1+ A Anisocytosis 2+ A Chloride Creatinine 0.5 L Glucose 126 H Uric Acid 1.5 L Calcium 8.5 L GGT Lactate Dehydrogenase 02/27/23 05:38 WBC 17.4 H RBC 3.24 L Hgb 9.7 L Hct 29.6 L RDW 16.6 H Plt Count MPV Immature Gran % (Auto) 4.0 H Neut % (Auto) 88.8 H Lymph % (Auto) 4.0 L Lymph # (Auto) 0.69 L Seg Neutrophils % Lymphocytes % Immature Gran # 0.70 H Absolute Neutrophils 15.44 H RBC Morphology Polychromasia Hypochromasia Anisocytosis Chloride Creatinine Glucose Uric Acid Calcium GGT Lactate Dehydrogenase Meds: Medications Acetaminophen (Acetaminophen 325 Mg Tablet) 650 mg PO Q6HP PRN; Protocol PRN Reason: Per Pain Protocol/Fever > 101 Last Admin: 02/28/23 08:28 Dose: 650 mg Albuterol Sulfate (Albuterol Sulfate 2.5 Mg/3 Ml Nebulizer) 2.5 mg NEB Q6HRT [facility] Last Admin: 03/01/23 06:56 Dose: 2.5 mg Amitriptyline HCl (Amitriptyline 25 Mg Tablet) 75 mg PO QHS [facility] Last Admin: 02/28/23 21:01 Dose: 75 mg Amitriptyline HCl (Amitriptyline 10 Mg Tablet) 10 mg PO HS [facility] Last Admin: 02/28/23 21:01 Dose: 10 mg Amlodipine Besylate (Amlodipine 5 Mg Tablet) 5 mg PO DAILY [facility] Last Admin: 02/28/23 08:34 Dose: 5 mg Benzonatate (Benzonatate 100 Mg Capsule) 200 mg PO TID [facility] Last Admin: 02/28/23 21:02 Dose: 200 mg Budesonide (Budesonide 0.5 Mg/2 Ml Ampul.Neb) 0.5 mg NEB Q12 [facility] Last Admin: 03/01/23 06:57 Dose: 0.5 mg Ceftriaxone Sodium (Ceftriaxone 1 Gm Vial) 1 gm IV Q24H [facility] Last Admin: 02/28/23 08:34 Dose: 1 gm Cyclobenzaprine HCl (Cyclobenzaprine 10 Mg Tablet) 10 mg PO HS [facility] Last Admin: 02/28/23 21:02 Dose: 10 mg Docusate Sodium (Docusate Sodium 100 Mg Capsule) 100 mg PO BID [facility] Last Admin: 02/28/23 21:01 Dose: 100 mg Enoxaparin Sodium (Enoxaparin 40 Mg/0.4 Ml Syringe) 40 mg SQ DAILY [facility] Last Admin: 02/28/23 08:28 Dose: 40 mg Estradiol (Estradiol 1 Mg Tablet) 1 mg PO DAILY [facility] Last Admin: 02/28/23 08:28 Dose: 1 mg Folic Acid (Folic Acid 1 Mg Tablet) 1 mg PO DAILY [facility] Last Admin: 02/28/23 11:15 Dose: 1 mg Guaifenesin/Codeine Phosphate (Guaifenesin/Codeine 10 Ml Udc) 10 ml PO Q4HP PRN PRN Reason: Cough Last Admin: 02/27/23 04:32 Dose: 10 ml Hydralazine HCl (Hydralazine 20 Mg/Ml Vial) 10 mg IV Q4-6HP PRN PRN Reason: Hypertension Last Admin: 02/27/23 04:11 Dose: 10 mg Hydromorphone HCl (Hydromorphone 0.5 Mg/0.5 Ml Syringe) 0.5 mg IV Q6H PRN; Protocol PRN Reason: Per Pain Protocol Labetalol HCl (Labetalol 5 Mg/Ml Ml) 10 mg IV Q2H PRN PRN Reason: Hypertension Last Admin: 02/27/23 06:00 Dose: 10 mg Lactulose (Lactulose 20 Gm/30 Ml Oral.Antonia) 10 gm PO DAILYP PRN PRN Reason: Constipation Lidocaine (Lidocaine Patch) 1 patch TOPICAL DAILY@1000 [facility] Last Admin: 02/28/23 08:27 Dose: 1 patch Lorazepam (Lorazepam 2 Mg/Ml Vial) 0.5 mg IV Q4-6HP PRN PRN Reason: ANXIETY/SEDATION Lorazepam (Lorazepam 2 Mg/Ml Vial) 0 mg IV Q1HP PRN; Protocol PRN Reason: Withdrawl Symptoms Losartan Potassium (Losartan 50 Mg Tablet) 100 mg PO DAILY [facility] Last Admin: 02/28/23 08:29 Dose: 100 mg Omeprazole ([facility] 20 Mg [facility]apsule) [facility] Last Admin: 03/01/23 07:25 Dose: 40 mg Ondansetron HCl (Ondansetron 4 Mg/2 Ml Vial) 4 mg IV Q4HP PRN; Protocol PRN Reason: Nausea And Vomiting Last Admin: 02/27/23 22:38 Dose: 4 mg Ondansetron HCl (Ondansetron 4 Mg Odt Tablet) 4 mg SL TIDP PRN PRN Reason: Nausea And Vomiting Last Admin: 02/26/23 12:27 Dose: 4 mg Oxycodone/Acetaminophen (Oxycodone/Apap 5/325mg Tablet) 1 tab PO Q4HP PRN; Protocol PRN Reason: Per Pain Protocol Last Admin: 02/26/23 20:29 Dose: 1 tab Dextroamphetamine- Amphetamine 20 Mg Capsule,Extended Release 1 dose PO [facility] Last Admin: 02/28/23 08:35 Dose: Not Given Rimegepant [Nurtec Odt] 75 Mg Tablet, Disintegrating 1 dose PO DAILY [facility] Last Admin: 02/28/23 08:34 Dose: Not Given Prednisone (Prednisone 20 Mg Tablet) 40 mg PO [facility] Promethazine HCl (Promethazine 25 Mg/Ml Vial) 12.5 mg IV Q4-6HP PRN PRN Reason: Nausea And Vomiting, Last Admin: 02/26/23 20:30 Dose: 12.5 mg Promethazine HCl (Promethazine 25 Mg Tablet) 25 mg PO TID PRN PRN Reason: nausea and vomiting Senna (Sennosides 1 Tablet) 2 tab PO HSP PRN PRN Reason: Constipation Last Admin: 02/27/23 19:23 Dose: 2 tab Simethicone (Simethicone 80 Mg Tab.Chew) 160 mg CHEWED QIDP PRN PRN Reason: Abdominal Distention Last Admin: 02/26/23 20:24 Dose: 160 mg Sodium Chloride (0.9 % Sodium Chloride 10 Ml Syringe) 10 ml IV Q8 [facility] Last Admin: 03/01/23 05:57 Dose: 10 ml Sodium Chloride (Sodium Chloride 1 Gm Tablet) 1 gm PO TID [facility] Last Admin: 02/28/23 21:02 Dose: 1 gm Spironolactone (Spironolactone 25 Mg Tablet) 25 mg PO DAILY [facility] Last Admin: 02/28/23 08:29 Dose: 25 mg Temazepam (Temazepam 15 Mg Capsule) 45 mg PO HS [facility] Last Admin: 02/28/23 21:02 Dose: 45 mg Thiamine HCl (Thiamine 100 Mg Tablet) 100 mg PO DAILY [facility] Last Admin: 02/28/23 11:15 Dose: 100 mg A/P Narrative A/P Narrative: Assessment and plan *Sepsis: 2/2 PNA -improving *Atypical pneumonia: -CT scan with diffuse ground-glass infiltrate involving both lungs. No evidence of PE -Procalcitonin 6.6 on admit; -Procalcitonin and leukocytosis trending down -Dx broad including atypical bacterial or viral pna, noninfectious inflammatory, autoimmune pneumonitis, fluid overl -Sputum culture with oral contamination was not processed -myco pending, covid/flu/rsv/rvp neg -Antitussives, cough suppressant, pain control for pleuritic chest pain -Continue ceftriaxone and azithromycin -echo with good EF and diastolic fxn, elevated bnp -diuresis and eval clinical status; d/c ivf -f/u cxr s/p diuresis improving *COPD exacerbation(not on home O2): -continues to smoke -Wean corticosteroids, DuoNebs, budesonide, pulmonary toileting *Acute hypoxic respiratory failure with diffuse bilateral groundglass opacities: 2/2 above -down to 0.5L NC *Tobacco use disorder: -Over [id number] history of smoking and continues to smoke up to half a pac k a day. -Smoke cessation counseling >3 minutes -Nicotine patch offered however patient refused *Hyponatremia, acute on chronic: -Patient admits to drinking at least 80 ounces of plain water every day, Counseled on avoiding over drinking of free water. -Plain water restriction to 7042-2998 cc/day -Serum sodium improved, on sodium tablet 1g tid -suspect beer potomania *Mild troponin elevation, will likely demand mediated -Likely secondary to stress and demand. -Troponin minimally elevated to 0.06, 0.04 -Monitor on telemetry -echocardiogram no regional wall motion abnormality *Chronic anemia: Stable *Chronic Leukocytosis: -check diff, no bandemia *Hypertension: -Initially hypotensive, now elevated blood pressure. -Start amlodipine 5 mg daily, continue losartan 100 mg daily -cont home aldactone *Migraine headaches:-Continue home medications *GERD: -Continue PPI *ADHD/PTSD/borderline personality disorder: -Continue Adderall home dose *Alcohol abuse: -CIWA, prn ativen, folate/thiamine *ppx: Lovenox / home PPI CODE STATUS: Full code Time Spent With Patient Time: Total time spent is greater than 50% in coordination of care (as documented) at patient's floor/unit and/or counseling patient: Subsequent: Total time with patient: 35 - 49 minutes
[2023-03-01] MEDS: BENZONATATE 100 MG CAPSULE PO SCH (08:20)
[2023-03-01] MEDS: SODIUM CHLORIDE 1 GM TABLET PO SCH (08:20)
[2023-03-01] MEDS: LOSARTAN 50 MG TABLET PO SCH (08:20)
[2023-03-01] MEDS: SPIRONOLACTONE 25 MG TABLET PO SCH (08:20)
[2023-03-01] MEDS: ESTRADIOL 1 MG TABLET PO SCH (08:20)
[2023-03-01] MEDS: THIAMINE 100 MG TABLET PO SCH (08:20)
[2023-03-01] MEDS: DOCUSATE SODIUM 100 MG CAPSULE PO SCH (08:21)
[2023-03-01] MEDS: amLODIPine 5 MG TABLET PO SCH (08:21)
[2023-03-01] MEDS: cefTRIAXone 1 GM VIAL IV SCH (08:21)
[2023-03-01] MEDS: FOLIC ACID 1 MG TABLET PO SCH (08:21)
[2023-03-01] MEDS: LIDOCAINE PATCH TOPICAL SCH (08:28)
[2023-03-01] MEDS: DEXTROAMPHETAMINE AMPHETAMINE 20 MG PO SCH (08:47)
[2023-03-01] MEDS: RIMEGEPANT 75 MG PO SCH (08:48)
[2023-03-01] MEDS: ENOXAPARIN 40 MG/0.4 ML SYRINGE SQ SCH (08:53)
--- NOTE | 2023-03-01 10:26 | XRay Report ---
HISTORY: Short of breath, follow-up pulmonary infiltrates after treatment with Lasix FINDINGS: Patient has emphysema and interstitial pulmonary fibrosis. There has been moderate improvement of the infiltrates in both lungs since the prior chest x-ray done on 02/23/23. No consolidating infiltrate is present. There is no mass or pleural effusion. The heart size is normal. IMPRESSION: Improving infiltrates in both lungs. This may have been due to pulmonary edema or active inflammatory process superimposed upon the chronic pulmonary fibrosis. Interpreted and Authenticated by: Edward Peterson 03/01/23
== END 2023-03-01 12:35 | disposition home or self-care (01) | DRG 871 ==
LOC: ED 11:22 → ICU 16:34
PROVIDERS: ADMIT Internal Medicine; ATTEND Internal Medicine

== ENCOUNTER 2024-01-03 11:28 | Inpatient (IN) ==
[2024-01-03] MEDS: SODIUM CHLORIDE IV ONE (12:00)
[2024-01-03] MEDS: CEFEPIME 1 GM VIAL IV ONE (12:29)
[2024-01-03] MEDS: AZITHROMYCIN 500 MG in DEXTROSE 5% IN WATER 250 ML IV ONE (12:35)
[2024-01-03 12:44] LABS: Basophils # (Auto) 0.02 K/mcL (0.00-0.30); Basophils % (Auto) 0.1 % (0.0-2.0); Eosinophils # (Auto) 0.13 K/mcL (0.00-0.70); Eosinophils % (Auto) 0.7 % (0.0-7.0); Hematocrit 35.3 % (34.1-44.9); Hemoglobin 10.9 g/dL (11.2-15.7); Lymphocytes # (Auto) 2.67 K/mcL (1.50-4.80); Mean Cell Volume 95.7 fL (80.0-100.0); Mean Corpuscular HGB Conc 30.9 g/dL (31.0-36.0); Mean Platelet Volume 8.4 fL (8.8-12.5); Monocytes # (Auto) 0.48 K/mcL (0.10-0.90); Monocytes % (Auto) 2.5 % (1.0-12.0); Platelet Count 440 K/mcL (140-440); RBC 3.69 M/mcL (3.59-5.38); Red Cell Distribution Width 15.2 % (11.5-14.5)
[2024-01-03 12:54] LABS: proBNP 39.6 pg/mL (<125.0)
[2024-01-03 13:14] LABS: ALT/SGPT 10 U/L (<40); AST/SGOT 24 U/L (<32); Albumin 3.9 gm/dL (3.2-5.2); Alkaline Phosphatase 120 U/L (39-117); Bilirubin,Total 0.4 mg/dL (0.1-1.0); Blood Urea Nitrogen 10 mg/dL (6-20); Calcium 9.2 mg/dL (8.6-10.4); Carbon Dioxide 19 mmol/L (22-30); Chloride 95 mmol/L (96-108); Globulin 3.8 gm/dL (2.2-3.7); Glomerular Filtration Rate 64; Glucose 125 mg/dL (70-105); Prothrombin Time 13.9 sec (11.9-14.5)
[2024-01-03] MEDS: KETOROLAC 30 MG/ML VIAL IV ONE (14:00)
[2024-01-03] MEDS: KETOROLAC 60 MG/2 ML VIAL IM ONE (14:27)
[2024-01-03] MEDS: IPRATROPIUM/ALBUTEROL 3 ML AMPUL.NEB NEB ONE (15:03)
[2024-01-03] MEDS: IPRATROPIUM/ALBUTEROL 3 ML AMPUL.NEB NEB SCH (15:03)
[2024-01-03] MEDS ORDERED: SENNOSIDES 1 TABLET PO PRN (15:42)
[2024-01-03] MEDS ORDERED: KETOROLAC 60 MG/2 ML VIAL IM PRN (15:42)
[2024-01-03] MEDS ORDERED: MECLIZINE 25 MG TABLET PO PRN (15:49)
[2024-01-03] MEDS ORDERED: RIMEGEPANT 75 MG PO PRN (15:52)
[2024-01-03] MEDS: guaiFENesin/DEXTROMETHORPHAN 5ML UD CUP PO PRN (17:02)
[2024-01-03] MEDS: cefTRIAXone 1 GM VIAL IV SCH (17:02)
[2024-01-03] MEDS: OMEPRAZOLE 20 MG CAPSULE PO SCH (17:02)
[2024-01-03] MEDS: 0.9 % SODIUM CHLORIDE 1,000 ML IV SCH (17:03)
[2024-01-03] MEDS: BUDESONIDE 0.5 MG/2 ML AMPUL.NEB NAS SCH (19:23)
[2024-01-03] MEDS: ARFORMOTEROL 15 MCG/2 ML INH SCH (19:27)
[2024-01-03] MEDS: AMITRIPTYLINE 25 MG TABLET PO SCH (20:13)
[2024-01-03] MEDS: AMITRIPTYLINE 10 MG TABLET PO SCH (20:13)
[2024-01-03] MEDS: TEMAZEPAM 15 MG CAPSULE PO SCH (20:13)
[2024-01-03] MEDS: GABAPENTIN 300 MG CAPSULE PO SCH (20:13)
[2024-01-03] MEDS: TOPIRAMATE 25 MG TABLET PO SCH (20:13)
[2024-01-03] MEDS: CYCLOBENZAPRINE 10 MG TABLET PO SCH (20:14)
[2024-01-03] MEDS: ESTRADIOL 1 MG TABLET PO SCH (20:14)
[2024-01-03] MEDS: DOCUSATE SODIUM 100 MG CAPSULE PO SCH (20:42)
[2024-01-03] MEDS: 0.9 % SODIUM CHLORIDE 10 ML SYRINGE IV SCH (20:42)
[2024-01-03] MEDS: SENNOSIDES 1 TABLET PO SCH (20:42)
[2024-01-03] MEDS: BENZONATATE 100 MG CAPSULE PO PRN (21:34)
[2024-01-03] MEDS: methylPREDNISolone SOD SUCC 125 MG/2 ML VIAL IV SCH (21:34)
[2024-01-03] MEDS: REMDESIVIR 200 MG in 0.9 % SODIUM CHLORIDE 250 ML IV ONE (22:21)
[2024-01-04] MEDS: POTASSIUM CHLORIDE 20 MEQ TABLET PO SCH (07:04)
[2024-01-04 07:26] LABS: ALT/SGPT 8 U/L (<40); AST/SGOT 19 U/L (<32); Albumin 3.2 gm/dL (3.2-5.2); Albumin/Globulin Ratio 1.1 (1.0-2.3); Alkaline Phosphatase 86 U/L (39-117); Bilirubin,Total < 0.2 mg/dL (0.1-1.0); Blood Urea Nitrogen 8 mg/dL (6-20); Calcium 7.9 mg/dL (8.6-10.4); Carbon Dioxide 18 mmol/L (22-30); Chloride 105 mmol/L (96-108); Globulin 2.9 gm/dL (2.2-3.7); Glomerular Filtration Rate 103; Glucose 195 mg/dL (70-105)
[2024-01-04 07:38] LABS: Basophils # (Auto) 0.01 K/mcL (0.00-0.30); Basophils % (Auto) 0.1 % (0.0-2.0); Eosinophils # (Auto) 0.01 K/mcL (0.00-0.70); Eosinophils % (Auto) 0.1 % (0.0-7.0); Hematocrit 28.1 % (34.1-44.9); Hemoglobin 8.8 g/dL (11.2-15.7); Lymphocytes # (Auto) 0.82 K/mcL (1.50-4.80); Lymphocytes % (Auto) 5.3 % (15.5-49.0); Mean Cell Volume 96.9 fL (80.0-100.0); Mean Corpuscular HGB Conc 31.3 g/dL (31.0-36.0); Mean Platelet Volume 8.4 fL (8.8-12.5); Monocytes # (Auto) 0.12 K/mcL (0.10-0.90); Monocytes % (Auto) 0.8 % (1.0-12.0); Neutrophils % (Auto) 86.2 % (38.0-78.0); Platelet Count 329 K/mcL (140-440); Red Cell Distribution Width 15.2 % (11.5-14.5); WBC 15.5 K/mcL (4.5-11.0)
[2024-01-04] MEDS: LOSARTAN 50 MG TABLET PO SCH (08:58)
[2024-01-04] MEDS: IBUPROFEN 200 MG TABLET PO SCH (08:58)
[2024-01-04] MEDS: ENOXAPARIN 40 MG/0.4 ML SYRINGE SQ SCH (08:59)
[2024-01-04] MEDS ORDERED: ACETAMINOPHEN (PP) 325MG TABLET (#50) PO SCH (09:00)
[2024-01-04] MEDS: DEXTROAMPHETAMINE AMPHETAMINE 20 MG PO SCH (09:16)
[2024-01-04] MEDS: ACETAMINOPHEN 325 MG TABLET PO PRN (09:45)
[2024-01-04] MEDS: AZITHROMYCIN 500 MG in DEXTROSE 5% IN WATER 250 ML IV SCH (09:46)
[2024-01-04] MEDS: REMDESIVIR 100 MG in 0.9 % SODIUM CHLORIDE 250 ML IV SCH (13:34)
[2024-01-05] MEDS: LORazepam 0.5 MG TABLET PO PRN (11:45)
[2024-01-05] MEDS: ALBUTEROL SULFATE 60 PUFF INHALER INH PRN (12:47)
[2024-01-06] MEDS: traZODone HCL 50 MG TABLET PO PRN (02:12)
[2024-01-06 07:12] LABS: Basophils # (Auto) 0.01 K/mcL (0.00-0.30); Basophils % (Auto) 0 % (0.0-2.0); Eosinophils # (Auto) 0 K/mcL (0.00-0.70); Eosinophils % (Auto) 0 % (0.0-7.0); Hemoglobin 8.4 g/dL (11.2-15.7); Lymphocytes # (Auto) 0.56 K/mcL (1.50-4.80); Lymphocytes % (Auto) 2.1 % (15.5-49.0); Mean Cell Volume 102.8 fL (80.0-100.0); Mean Platelet Volume 8.5 fL (8.8-12.5); Monocytes # (Auto) 0.61 K/mcL (0.10-0.90); Monocytes % (Auto) 2.3 % (1.0-12.0); Neutrophils % (Auto) 92.5 % (38.0-78.0); Platelet Count 339 K/mcL (140-440); RBC 2.82 M/mcL (3.59-5.38); Red Cell Distribution Width 15.7 % (11.5-14.5); WBC 26.9 K/mcL (4.5-11.0)
[2024-01-06 07:37] LABS: ALT/SGPT 6 U/L (<40); AST/SGOT 29 U/L (<32); Albumin 3.2 gm/dL (3.2-5.2); Albumin/Globulin Ratio 1.1 (1.0-2.3); Alkaline Phosphatase 106 U/L (39-117); Bilirubin,Total < 0.2 mg/dL (0.1-1.0); Blood Urea Nitrogen 12 mg/dL (6-20); Calcium 8.5 mg/dL (8.6-10.4); Carbon Dioxide 20 mmol/L (22-30); Chloride 105 mmol/L (96-108); Glomerular Filtration Rate 109; Glucose 159 mg/dL (70-105)
[2024-01-06] MEDS ORDERED: VANCOMYCIN PER PHARMACY IV SCH (08:07)
[2024-01-06] MEDS: DEXAMETHASONE 10 MG/ML VIAL IV SCH (08:45)
[2024-01-06 08:51] LABS: POC INR 1.5 (0.8-1.2); POC Pro Time 18.2 (11.9-14.5)
[2024-01-06] MEDS ORDERED: IOPAMIDOL 100 ML BOTTLE IV ONE (09:32)
[2024-01-06] MEDS: PIPERACILLIN SODIUM/TAZOBACTAM 3.375 GM in DEXTROSE 5% IN WATER 50 ML IV ONE (10:22)
[2024-01-06] MEDS: AZITHROMYCIN 500 MG in DEXTROSE 5% IN WATER 250 ML IV SCH (10:52)
[2024-01-06] MEDS: VANCOMYCIN 750 MG in 0.9 % SODIUM CHLORIDE 250 ML IV SCH (10:52)
[2024-01-06] MEDS: FUROSEMIDE 20 MG/2 ML VIAL IV SCH (13:29)
[2024-01-06] MEDS: PIPERACILLIN SODIUM/TAZOBACTAM 3.375 GM in DEXTROSE 5% IN WATER 100 ML IV SCH (14:41)
[2024-01-06 14:54] LABS: Appearance,Urine CLOUDY (Clear); Bilirubin,Urine Negative (Negative); Color,Urine STRAW; Culture Indicated,Urine No; Glucose,Urine (UA) 50 mg/dL (Negative); Ketones,Urine Negative (Negative); Leukocyte Esterase,Urine Negative /uL (Negative); Nitrate,Urine Negative (Negative); Protein,Urine Negative (Negative); Specific Gravity,Urine 1.014 (1.000-1.035); Urine Blood Negative (Negative); Urobilinogen,Urine Negative
[2024-01-06 15:00] LABS: Amphetamine Screen,Urine None detected; Barbiturate Screen,Urine None detected; Benzodiazepines Screen,Urine None detected; Cannabinoid Screen,Urine None detected; Cocaine Screen,Urine None detected; Opiate Screen,Urine None detected; Oxycodone, Urine Screen None detected; Phencyclidine Screen,Urine None detected
[2024-01-06] MEDS: LORazepam 2 MG/ML VIAL IV PRN (19:26)
[2024-01-06] MEDS: MUPIROCIN OINT 2% 22GM NARES SCH (20:53)
[2024-01-06] MEDS: DEXMEDETOMIDINE 100 ML IV ONE (21:41)
[2024-01-06] MEDS: 0.9 % SODIUM CHLORIDE 250 ML IV SCH (21:45)
[2024-01-06] MEDS: DEXMEDETOMIDINE 400 MCG in PREMIX 1 BAG IV SCH (21:45)
[2024-01-07 06:24] LABS: Basophils # (Auto) 0.01 K/mcL (0.00-0.30); Basophils % (Auto) 0 % (0.0-2.0); Eosinophils # (Auto) 0 K/mcL (0.00-0.70); Eosinophils % (Auto) 0 % (0.0-7.0); Hematocrit 27.5 % (34.1-44.9); Hemoglobin 8.6 g/dL (11.2-15.7); Lymphocytes % (Auto) 4.6 % (15.5-49.0); Mean Cell Volume 97.2 fL (80.0-100.0); Mean Corpuscular HGB Conc 31.3 g/dL (31.0-36.0); Mean Platelet Volume 8.7 fL (8.8-12.5); Monocytes # (Auto) 0.53 K/mcL (0.10-0.90); Monocytes % (Auto) 2.2 % (1.0-12.0); Neutrophils % (Auto) 90.3 % (38.0-78.0); Platelet Count 322 K/mcL (140-440); RBC 2.83 M/mcL (3.59-5.38); Red Cell Distribution Width 15.5 % (11.5-14.5); WBC 23.7 K/mcL (4.5-11.0)
[2024-01-07 06:56] LABS: ALT/SGPT 9 U/L (<40); AST/SGOT 32 U/L (<32); Albumin 3.2 gm/dL (3.2-5.2); Albumin/Globulin Ratio 1.3 (1.0-2.3); Alkaline Phosphatase 170 U/L (39-117); Bilirubin,Total < 0.2 mg/dL (0.1-1.0); Blood Urea Nitrogen 13 mg/dL (6-20); Calcium 7.8 mg/dL (8.6-10.4); Carbon Dioxide 24 mmol/L (22-30); Chloride 105 mmol/L (96-108); Globulin 2.5 gm/dL (2.2-3.7); Glomerular Filtration Rate 109; Glucose 166 mg/dL (70-105)
[2024-01-07] MEDS: ONDANSETRON 4 MG/2 ML VIAL IV PRN (07:02)
[2024-01-07] MEDS: DEXMEDETOMIDINE 100 ML IV ONE ×2 (08:51→16:18)
[2024-01-07] MEDS: DEXMEDETOMIDINE 400 MCG in PREMIX 1 BAG IV SCH ×2 (08:51→16:17)
[2024-01-07] MEDS: hydrALAZINE 20 MG/ML VIAL IV PRN (16:18)
[2024-01-07] MEDS: LABETALOL HCL 20 MG/4 ML VIAL IV PRN (17:55)
[2024-01-07] MEDS: NITROGLYCERIN 0.4 MG TAB.SUBL SL ONE (21:42)
[2024-01-07] MEDS: NITROGLYCERIN 0.4 MG TAB.SUBL SL PRN (21:42)
[2024-01-07] MEDS: HYDROmorphone 0.5 MG/0.5 ML SYRINGE IV PRN (21:43)
[2024-01-07] MEDS: HYDROmorphone 0.5 MG/0.5 ML SYRINGE ONE (21:44)
[2024-01-08] MEDS: DEXMEDETOMIDINE 100 ML IV ONE ×3 (01:36→20:52)
[2024-01-08 06:33] LABS: Basophils # (Auto) 0.01 K/mcL (0.00-0.30); Basophils % (Auto) 0 % (0.0-2.0); Eosinophils # (Auto) 0.05 K/mcL (0.00-0.70); Eosinophils % (Auto) 0.2 % (0.0-7.0); Hematocrit 28.3 % (34.1-44.9); Hemoglobin 8.8 g/dL (11.2-15.7); Lymphocytes # (Auto) 1.74 K/mcL (1.50-4.80); Lymphocytes % (Auto) 7.5 % (15.5-49.0); Mean Cell Volume 96.9 fL (80.0-100.0); Mean Corpuscular HGB Conc 31.1 g/dL (31.0-36.0); Mean Platelet Volume 8.6 fL (8.8-12.5); Monocytes # (Auto) 0.44 K/mcL (0.10-0.90); Monocytes % (Auto) 1.9 % (1.0-12.0); Neutrophils % (Auto) 87.1 % (38.0-78.0); Platelet Count 251 K/mcL (140-440); RBC 2.92 M/mcL (3.59-5.38); Red Cell Distribution Width 15.4 % (11.5-14.5); WBC 23.2 K/mcL (4.5-11.0)
[2024-01-08 07:00] LABS: ALT/SGPT 6 U/L (<40); AST/SGOT 24 U/L (<32); Albumin 3.1 gm/dL (3.2-5.2); Albumin/Globulin Ratio 1.3 (1.0-2.3); Alkaline Phosphatase 281 U/L (39-117); Bilirubin,Total < 0.2 mg/dL (0.1-1.0); Blood Urea Nitrogen 15 mg/dL (6-20); Calcium 7.9 mg/dL (8.6-10.4); Carbon Dioxide 24 mmol/L (22-30); Chloride 103 mmol/L (96-108); Globulin 2.4 gm/dL (2.2-3.7); Glomerular Filtration Rate 118; Glucose 160 mg/dL (70-105)
[2024-01-08] MEDS: LORazepam 0.5 MG TABLET PO PRN (08:07)
[2024-01-08 09:45] LABS: C-Reactive Protein 3.02 mg/dL (0.03-0.80)
[2024-01-08] MEDS: guaiFENesin/CODEINE 10 ML UDC PO SCH (11:07)
[2024-01-08] MEDS: NICOTINE 21 MG PATCH TOPICAL SCH (11:08)
[2024-01-08] MEDS: FUROSEMIDE 20 MG/2 ML VIAL IV SCH (11:08)
[2024-01-08] MEDS: VANCOMYCIN 1,000 MG in 0.9 % SODIUM CHLORIDE 250 ML IV SCH (11:52)
[2024-01-08] MEDS: PROMETHAZINE 25 MG/ML VIAL IV PRN (17:30)
[2024-01-08] MEDS: DEXMEDETOMIDINE 400 MCG in PREMIX 1 BAG IV PRN (17:57)
[2024-01-09] MEDS: DEXMEDETOMIDINE 100 ML IV ONE ×3 (04:34→19:15)
[2024-01-09 06:59] LABS: ALT/SGPT 13 U/L (<40); AST/SGOT 31 U/L (<32); Albumin 3.2 gm/dL (3.2-5.2); Albumin/Globulin Ratio 1.2 (1.0-2.3); Alkaline Phosphatase 275 U/L (39-117); Bilirubin,Total < 0.2 mg/dL (0.1-1.0); Blood Urea Nitrogen 12 mg/dL (6-20); Calcium 7.8 mg/dL (8.6-10.4); Carbon Dioxide 25 mmol/L (22-30); Chloride 94 mmol/L (96-108); Globulin 2.6 gm/dL (2.2-3.7); Glomerular Filtration Rate 109; Glucose 138 mg/dL (70-105)
[2024-01-09 07:08] LABS: Basophils # (Auto) 0.02 K/mcL (0.00-0.30); Basophils % (Auto) 0.1 % (0.0-2.0); Eosinophils # (Auto) 0.16 K/mcL (0.00-0.70); Eosinophils % (Auto) 0.4 % (0.0-7.0); Hematocrit 30.2 % (34.1-44.9); Hemoglobin 9.3 g/dL (11.2-15.7); Lymphocytes # (Auto) 3.21 K/mcL (1.50-4.80); Lymphocytes % (Auto) 8.3 % (15.5-49.0); Mean Cell Volume 96.8 fL (80.0-100.0); Mean Corpuscular HGB Conc 30.8 g/dL (31.0-36.0); Mean Platelet Volume 8.8 fL (8.8-12.5); Neutrophils % (Auto) 89.2 % (38.0-78.0); Platelet Count 266 K/mcL (140-440); RBC 3.12 M/mcL (3.59-5.38); Red Cell Distribution Width 15.2 % (11.5-14.5); WBC 38.5 K/mcL (4.5-11.0)
[2024-01-09] MEDS: IPRATROPIUM/ALBUTEROL 3 ML AMPUL.NEB NEB PRN (09:36)
[2024-01-09] MEDS: MEROPENEM 1 GM in 0.9 % SODIUM CHLORIDE 50 ML IV SCH (11:14)
[2024-01-09] MEDS: REMDESIVIR 100 MG in 0.9 % SODIUM CHLORIDE 250 ML IV SCH (14:55)
[2024-01-10] MEDS: DEXMEDETOMIDINE 100 ML IV ONE ×2 (03:48→13:25)
[2024-01-10 06:35] LABS: ALT/SGPT 73 U/L (<40); AST/SGOT 90 U/L (<32); Albumin 3.2 gm/dL (3.2-5.2); Albumin/Globulin Ratio 1.2 (1.0-2.3); Alkaline Phosphatase 199 U/L (39-117); Bilirubin,Total 0.2 mg/dL (0.1-1.0); Blood Urea Nitrogen 11 mg/dL (6-20); Carbon Dioxide 25 mmol/L (22-30); Chloride 96 mmol/L (96-108); Globulin 2.7 gm/dL (2.2-3.7); Glomerular Filtration Rate 109; Glucose 161 mg/dL (70-105)
[2024-01-10 06:37] LABS: Basophils # (Auto) 0.02 K/mcL (0.00-0.30); Basophils % (Auto) 0.1 % (0.0-2.0); Eosinophils # (Auto) 0.21 K/mcL (0.00-0.70); Eosinophils % (Auto) 0.6 % (0.0-7.0); Erythrocyte Sedimentation Rate 44 mm/hr (0-30); Hematocrit 29.3 % (34.1-44.9); Hemoglobin 9.1 g/dL (11.2-15.7); Lymphocytes # (Auto) 2.29 K/mcL (1.50-4.80); Lymphocytes % (Auto) 6.1 % (15.5-49.0); Mean Cell Volume 96.1 fL (80.0-100.0); Mean Corpuscular HGB Conc 31.1 g/dL (31.0-36.0); Mean Platelet Volume 8.9 fL (8.8-12.5); Monocytes # (Auto) 0.57 K/mcL (0.10-0.90); Monocytes % (Auto) 1.5 % (1.0-12.0); Neutrophils % (Auto) 90.9 % (38.0-78.0); Platelet Count 253 K/mcL (140-440); RBC 3.05 M/mcL (3.59-5.38); Red Cell Distribution Width 15.5 % (11.5-14.5); WBC 37.4 K/mcL (4.5-11.0)
[2024-01-10] MEDS: VANCOMYCIN 750 MG in 0.9 % SODIUM CHLORIDE 250 ML IV SCH (11:18)
[2024-01-10] MEDS: FLEETS ADULT 1 DOSE ENEMA PR PRN (14:27)
[2024-01-10] MEDS: POLYETHYLENE GLYCOL 3350 17 GM PACKET PO SCH (19:34)
[2024-01-11 07:47] LABS: ALT/SGPT 234 U/L (<40); AST/SGOT 196 U/L (<32); Albumin 3.3 gm/dL (3.2-5.2); Albumin/Globulin Ratio 1.1 (1.0-2.3); Alkaline Phosphatase 186 U/L (39-117); Basophils # (Auto) 0.02 K/mcL (0.00-0.30); Basophils % (Auto) 0.1 % (0.0-2.0); Bilirubin,Total < 0.2 mg/dL (0.1-1.0); Blood Urea Nitrogen 16 mg/dL (6-20); Calcium 8.8 mg/dL (8.6-10.4); Carbon Dioxide 24 mmol/L (22-30); Chloride 96 mmol/L (96-108); Eosinophils # (Auto) 0.04 K/mcL (0.00-0.70); Eosinophils % (Auto) 0.1 % (0.0-7.0); Globulin 3.1 gm/dL (2.2-3.7); Glomerular Filtration Rate 118; Glucose 200 mg/dL (70-105); Hemoglobin 9.4 g/dL (11.2-15.7); Lymphocytes # (Auto) 1.21 K/mcL (1.50-4.80); Lymphocytes % (Auto) 3.7 % (15.5-49.0); Mean Cell Volume 96.5 fL (80.0-100.0); Mean Corpuscular HGB Conc 31.3 g/dL (31.0-36.0); Monocytes # (Auto) 0.88 K/mcL (0.10-0.90); Monocytes % (Auto) 2.7 % (1.0-12.0); Neutrophils % (Auto) 92.2 % (38.0-78.0); Platelet Count 343 K/mcL (140-440); RBC 3.11 M/mcL (3.59-5.38); Red Cell Distribution Width 15.6 % (11.5-14.5)
[2024-01-11] MEDS ORDERED: DEXTROSE 31 GM ORAL.SUSP PO PRN (08:24)
[2024-01-11] MEDS ORDERED: DEXTROSE 50% 50 ML VIAL IV PRN (08:24)
[2024-01-11] MEDS ORDERED: IOPAMIDOL 100 ML BOTTLE IV ONE (10:41)
[2024-01-11] MEDS: LORazepam 2 MG/ML VIAL IV PRN (11:51)
[2024-01-11] MEDS: INSULIN LISPRO 1 UNIT/0.01 ML UNIT SQ SCH (12:06)
[2024-01-11] MEDS: LORazepam 2 MG/ML VIAL ONE (12:15)
[2024-01-11] MEDS: HEPARIN 5,000 UNIT/ML VIAL IV SCH (13:30)
[2024-01-11] MEDS: HEPARIN SOD,PORK IN 0.45% NACL 25,000 UNIT in PREMIX 1 BAG IV SCH (13:35)
[2024-01-11 13:56] LABS: Basophils # (Auto) 0.02 K/mcL (0.00-0.30); Basophils % (Auto) 0.1 % (0.0-2.0); Eosinophils # (Auto) 0.01 K/mcL (0.00-0.70); Eosinophils % (Auto) 0 % (0.0-7.0); Hematocrit 30.5 % (34.1-44.9); Hemoglobin 9.5 g/dL (11.2-15.7); Lymphocytes % (Auto) 1.4 % (15.5-49.0); Mean Corpuscular HGB Conc 31.1 g/dL (31.0-36.0); Mean Platelet Volume 8.8 fL (8.8-12.5); Monocytes # (Auto) 0.44 K/mcL (0.10-0.90); Monocytes % (Auto) 1.2 % (1.0-12.0); Platelet Count 353 K/mcL (140-440); RBC 3.21 M/mcL (3.59-5.38); Red Cell Distribution Width 15.5 % (11.5-14.5); WBC 35.5 K/mcL (4.5-11.0)
[2024-01-11] MEDS: HEPARIN SOD,PORK IN 0.45% NACL 500 ML IV ONE (13:57)
[2024-01-11 14:33] LABS: INR 1.1 (0.9-1.1); Partial Thromboplastin Time 31.6 sec (20.0-37.0); Prothrombin Time 14.9 sec (11.9-14.5)
== END 2024-01-11 14:20 | disposition short-term general hospital (02) | DRG 871 ==
LOC: ED 11:28 → MEDSUR 14:48 → ICU 01-06 05:59
PROVIDERS: ADMIT Internal Medicine; ATTEND Student in an Organized Health Care Education/Training Program